=== PATIENT | female | born 1990 | race Caucasian/White ===

== ENCOUNTER → 2016-08-18 | Outpatient (CLI) | payer OTHER, BC | LOC: LAB 08:56 | PROVIDERS: ATTEND Obstetrics & Gynecology | DX: O09.899 Supervision of other high risk pregnancies, unspecified trimester (principal) | CPT/HCPCS: 36415; 82951; 82952; 82962 ==

== ENCOUNTER → 2017-08-04 | Outpatient (CLI) | payer BC, OTHER | LOC: LAB 12:12 | PROVIDERS: ATTEND Nurse Practitioner Family | DX: Z34.90 Encounter for supervision of normal pregnancy, unspecified, unspecified trimester (principal) ==

== ENCOUNTER → 2018-02-23 | Outpatient (CLI) | payer OTHER | LOC: LAB 08:51 | PROVIDERS: ATTEND Obstetrics & Gynecology | DX: N91.2 Amenorrhea, unspecified (principal) | CPT/HCPCS: 36415; 84702 ==

== ENCOUNTER 2018-03-31 02:47 | Observation (INO) | payer OTHER ==
[~2018-03-31] VITALS: Ht 170.2 cm; Wt 90.3 kg
[2018-03-31] MEDS ORDERED: NS IV 1000 ML 1,000 ML IV SCH ×2 (02:59→03:10)
[2018-03-31] MEDS ORDERED: FAMOTIDINE 20 MG (PEPCID) TABLET PO STA (02:59)
[2018-03-31] MEDS ORDERED: ONDANSETRON 4 MG/2 ML (SDV) Z0FRAN IVP ONE (03:00)
[2018-03-31] MEDS ORDERED: ACETAMINOPHEN 500 MG TAB (TYLENOL) PO ONE (03:00)
[2018-03-31] MEDS ORDERED: LIDOCAINE 2% VISCOUS 15 ML UDC PO ONE (03:00)
[2018-03-31] MEDS ORDERED: ANTACID SUSP 30 ML UDC (MYLANTA) PO ONE (03:00)
--- NOTE | 2018-03-31 03:07 | ED Chest Pain ---
General Stated Complaint: CP.SOB Source: patient, spouse Exam Limitations: no limitations History of Present Illness Date Seen by Provider: Mar 31, 2018 Time Seen by Provider: 02:52 Initial Comments History presents to ER by private conveyance with her and chief complaint about half an hour ago she woke up with some chest pain shortness of breath the center of her chest that did not radiate felt like she was taking in deep cold breaths. She is having some nausea and vomiting after the pain started up. She has had a cold lately with some cough and chills but no fevers she is aware of. She had a last menstrual. Of January 14, 2018 putting her at 10 weeks and 5 days. She is on aspirin, progesterone and vitamins with folate due to a history of previous miscarriage. She is followed by Dr. Dubon. She had high blood pressure but no hyperglycemia with her last pregnancies. She' s had no diarrhea or dysuria. She has no personal history of heart disease but she did have asthma as a child exercise induced. No other significant medical history or surgical history. She does not smoke drink or use recreational drugs. She denies a history of acid reflux or anxiety. The patient took an albuterol nebulizer before coming in and all he did was make her feel like her heart was racing. She denies any wheezing. Allergies and Home Medications Allergies Coded Allergies: No Known Drug Allergies (Unverified , 03/31/18) Patient Home Medication List Home Medication List Reviewed: Yes Review of Systems Review of Systems Constitutional: No chills, No diaphoresis EENTM: No Blurred Vision, No Double Vision Respiratory: Denies Cough, Denies Shortness of Air Cardiovascular: See HPI, Chest Pain; Denies Edema Gastrointestinal: Denies Abdomen Distended, Denies Abdominal Pain, Denies Constipated, Denies Diarrhea; Nausea; Denies Poor Fluid Intake; Vomiting Genitourinary: Denies Burning, Denies Discharge, Denies Drainage Musculoskeletal: No back pain, No joint pain Skin: No pruritus, No rash Psychiatric/Neurological: Denies Headache, Denies Numbness, Denies Paresthesia Past Hymazzt-Npmist-Frgczx Hx Patient Social History Alcohol Use: Denies Use Recreational Drug Use: No Smoking Status: Never a Smoker Recent Foreign Travel: No Contact w/Someone Who Travel: No Physical Exam Vital Signs Vital Signs - First Documented 03/31/18 02:54 Temp 99.6 Pulse 148 Resp 22 B/P (MAP) 136/92 (107) Capillary Refill : Height, Weight, BMI Height: '" Weight: lbs. oz. kg; BMI Method: General Appearance: WD/WN (gravid), Anxious HEENT: PERRL/EOMI, Pharynx Normal, Moist Mucous Membranes Respiratory: Chest Non Tender, Lungs Clear, Normal Breath Sounds, No Accessory Muscle Use, No Respiratory Distress Cardiovascular: Regular Rate, Rhythm, No Edema, Normal Peripheral Pulses Gastrointestinal: Normal Bowel Sounds, Non Tender, Soft Extremity: Normal Capillary Refill, Normal Inspection, Normal Range of Motion, Non Tender, No Calf Tenderness, No Pedal Edema Neurologic/Psychiatric: Alert, Oriented x3, No Motor/Sensory Deficits Skin: Normal Color, Warm/Dry Focused Exam Lactate Level 03/31/18 03:04: Lactic Acid Level 2.28*H Lactic Acid Level Laboratory Tests Test 03/31/18 03:04 Lactic Acid Level 2.28 MMOL/L (0.50-2.00) *H Progress/Results/Core Measures Results/Orders Lab Results Laboratory Tests Test 03/31/18 03:04 03/31/18 03:20 03/31/18 04:15 Range/Units White Blood Count 14.3 H 4.3-11.0 10^3/uL Red Blood Count 4.30 L 4.35-5.85 10^6/uL Hemoglobin 13.4 11.5-16.0 G/DL Hematocrit 38 35-52 % Mean Corpuscular Volume 89 80-99 FL Mean Corpuscular Hemoglobin 31 25-34 PG Mean Corpuscular Hemoglobin Concent 35 32-36 G/DL Red Cell Distribution Width 12.9 10.0-14.5 % Platelet Count 161 130-400 10^3/uL Mean Platelet Volume 10.6 H 7.4-10.4 FL Neutrophils (%) (Auto) 94 H 42-75 % Lymphocytes (%) (Auto) 3 L 12-44 % Monocytes (%) (Auto) 4 0-12 % Eosinophils (%) (Auto) 0 0-10 % Basophils (%) (Auto) 0 0-10 % Neutrophils # (Auto) 13.4 H 1.8-7.8 X 10^3 Lymphocytes # (Auto) 0.4 L 1.0-4.0 X 10^3 Monocytes # (Auto) 0.5 0.0-1.0 X 10^3 Eosinophils # (Auto) 0.0 0.0-0.3 10^3/uL Basophils # (Auto) 0.0 0.0-0.1 10^3/uL Neutrophils % (Manual) 72 % Lymphocytes % (Manual) 4 % Monocytes % (Manual) 2 % Eosinophils % (Manual) 4 % Basophils % (Manual) 1 % Band Neutrophils 17 % Blood Morphology Comment NORMAL Prothrombin Time 13.0 12.2-14.7 SEC INR Comment 1.0 0.8-1.4 Activated Partial Thromboplast Time 25 24-35 SEC D-Dimer 2.81 H 0.00-0.49 UG/ML Sodium Level 133 L 135-145 MMOL/L Potassium Level 3.7 3.6-5.0 MMOL/L Chloride Level 102 98-107 MMOL/L Carbon Dioxide Level 19 L 21-32 MMOL/L Anion Gap 12 5-14 MMOL/L Blood Urea Nitrogen 9 7-18 MG/DL Creatinine 0.72 0.60-1.30 MG/DL Estimat Glomerular Filtration Rate > 60 BUN/Creatinine Ratio 13 Glucose Level 110 H 70-105 MG/DL Lactic Acid Level 2.28 *H 0.50-2.00 MMOL/L Calcium Level 9.1 8.5-10.1 MG/DL Corrected Calcium 9.3 8.5-10.1 MG/DL Magnesium Level 1.6 L 1.8-2.4 MG/DL Total Bilirubin 0.7 0.1-1.0 MG/DL Aspartate Amino Transf (AST/SGOT) 25 5-34 U/L Alanine Aminotransferase (ALT/SGPT) 18 0-55 U/L Alkaline Phosphatase 74 40-136 U/L Troponin I < 0.028 <0.028 NG/ML C-Reactive Protein High Sensitivity 1.40 H 0.00-0.50 MG/DL B-Type Natriuretic Peptide 28.0 <100.0 PG/ML Total Protein 7.3 6.4-8.2 GM/DL Albumin 3.8 3.2-4.5 GM/DL Lipase 43 8-78 U/L Urine Color YELLOW Urine Clarity CLEAR Urine pH 7 5-9 Urine Specific [place] 1.010 L 1.016-1.022 Urine Protein NEGATIVE NEGATIVE Urine Glucose (UA) NEGATIVE NEGATIVE Urine Ketones 1+ H NEGATIVE Urine Nitrite NEGATIVE NEGATIVE Urine Bilirubin NEGATIVE NEGATIVE Urine Urobilinogen NORMAL NORMAL MG/DL Urine Leukocyte Esterase 1+ H NEGATIVE Urine RBC (Auto) NEGATIVE NEGATIVE Urine RBC NONE /HPF Urine WBC RARE /HPF Urine Squamous Epithelial Cells 2-5 /HPF Urine Crystals NONE /LPF Urine Bacteria TRACE /HPF Urine Casts NONE /LPF Urine Mucus NEGATIVE /LPF Urine Culture Indicated CULTURE PENDING Urine Opiates Screen NEGATIVE NEGATIVE Urine Oxycodone Screen NEGATIVE NEGATIVE Urine Methadone Screen NEGATIVE NEGATIVE Urine Propoxyphene Screen NEGATIVE NEGATIVE Urine Barbiturates Screen NEGATIVE NEGATIVE Ur Tricyclic Antidepressants Screen NEGATIVE NEGATIVE Urine Phencyclidine Screen NEGATIVE NEGATIVE Urine Amphetamines Screen NEGATIVE NEGATIVE Urine Methamphetamines Screen NEGATIVE NEGATIVE Urine Benzodiazepines Screen NEGATIVE NEGATIVE Urine Cocaine Screen NEGATIVE NEGATIVE Urine Cannabinoids Screen NEGATIVE NEGATIVE Erythrocyte Sedimentation Rate 12 0-20 MM/HR Micro Results Microbiology 03/31/18 Influenza Types A,B Antigen (ELMER) - Final, Complete My Orders Orders - SIRI CASON Troponin I (03/31/18 02:59) Chest 1 View, Ap/Pa Only (03/31/18 02:59) Ekg Tracing (03/31/18 02:59) Saline Lock/Iv-Start (03/31/18 02:59) Monitor-Rhythm Ecg Trace Only (03/31/18 02:59) Cbc With Automated Diff (03/31/18 02:59) Comprehensive Metabolic Panel (03/31/18 02:59) Fibrin Degradation Products (03/31/18 02:59) Magnesium (03/31/18 02:59) Influenza A And B Antigens (03/31/18 02:59) Saline Lock/Iv-Start (03/31/18 02:59) Ns Iv 1000 Ml (Sodium Chloride 0.9%) (03/31/18 02:59) Acetaminophen Tablet (Tylenol Tablet) (03/31/18 03:00) Ondansetron Injection (Zofran Injectio (03/31/18 03:00) Lidocaine 2% Viscous 15 Ml (Xylocaine Vi (03/31/18 03:00) Famotidine Tablet (Pepcid Tablet) (03/31/18 02:59) Antacid Suspension (Mylanta Suspension (03/31/18 03:00) Protime With Inr (03/31/18 03:10) Partial Thromboplastin Time (03/31/18 03:10) Blood Culture (03/31/18 03:10) Urinalysis (03/31/18 03:10) Urine Culture (03/31/18 03:10) Saline Lock/Iv-Start (03/31/18 03:10) Vital Signs Adult Sepsis Patie Q15M (03/31/18 03:10) O2 (03/31/18 03:10) Remove Rings In Anticipation O (03/31/18 03:10) Lactic Acid Analyzer (03/31/18 03:10) Ns Iv 1000 Ml (Sodium Chloride 0.9%) (03/31/18 03:10) Cefepime Injection (Maxipime Injection) (03/31/18 03:15) Manual Differential (03/31/18 03:04) Lipase (03/31/18 03:18) Drug Screen Stat (Urine) (03/31/18 03:23) Magnesium 1 Gm/100 Ml Ivpb (Magnesium Justin (03/31/18 03:45) BNP (03/31/18 03:43) Hs C Reactive Protein (03/31/18 03:59) Erythrocyte Sedimentation Rate (03/31/18 03:59) Medications Given in ED Current Medications Medications Dose Ordered Sig/Gus Route Start Time Stop Time Status Last Admin Dose Admin Acetaminophen 1,000 mg ONCE ONCE PO 03/31/18 03:00 03/31/18 03:02 DC 03/31/18 03:40 1,000 MG Al Hydrox/Mg Hydrox/Simethicone 30 ml ONCE ONCE PO 03/31/18 03:00 03/31/18 03:02 DC 03/31/18 03:50 30 ML Cefepime HCl 1000 mg/Sodium Chloride 50 ml @ 100 mls/hr ONCE ONCE IV 03/31/18 03:15 03/31/18 03:44 DC 03/31/18 03:41 100 MLS/HR Lidocaine HCl 15 ml ONCE ONCE PO 03/31/18 03:00 03/31/18 03:02 DC 03/31/18 03:50 15 ML Magnesium Sulfate/ Dextrose 100 ml @ 100 mls/hr ONCE ONCE IV 03/31/18 03:45 03/31/18 04:44 DC 03/31/18 04:25 100 MLS/HR Ondansetron HCl 4 mg ONCE ONCE IVP 03/31/18 03:00 03/31/18 03:02 DC 03/31/18 03:12 4 MG Vital Signs/I&O 03/31/18 02:54 Temp 99.6 Pulse 148 Resp 22 B/P (MAP) 136/92 (107) Progress Progress Note #1: Time: 03:08 Progress Note Patient appears very anxious with tachycardia and tachypnea. We'll get a set of blood cultures, lactate, urinalysis as well as urine drug screen. We'll get a d- dimer which will most likely be positive due to the . EKG, troponin. We 'll give her some aspirin and a GI cocktail as well as Tylenol. Part of her sinus tachycardia could be from her recent albuterol nebulizer treatment. Plan to give her 2 L which would be more than 20 mL/kg since she is tachycardic with a soft blood pressure 110 systolic. Bronchitis, pneumonia, myocarditis/pericarditis, chest wall pain from coughing, -related heart failure, much less likely coronary disease or pulmonary embolism, gastritis/esophagitis, pancreatitis. Well score for PE is 1. 5 points. Low risk group: 1.3% chance of PE in an ED population. Another study assigned scores = 4 as PE Unlikely and had a 3% incidence of PE. Wells criteria is of dubious value and . Unable to rule out by Perk criteria. We'll obtain a d-dimer first. Progress Note #2: Time: 04:46 Progress Note Chest carr nontender which would make costochondritis much less likely. Tylenol and GI cocktail did nothing for her pain which is still about a 4-5 out of 10. It's most likely between pericarditis or less likely a pulmonary embolism. At this point she is not showing any evidence of cor pulmonale or acute decompensation. Plan is to get a VQ scan since the chest x-ray is unrevealing. 90 mg Lovenox subcutaneous every 12. Initial ECG Impression Date: Mar 31, 2018 Initial ECG Impression Time: 02:58 Initial ECG Rate: 138 Initial ECG Rhythm: S.Tach Initial ECG Intervals: Normal Initial ECG Impression: Normal, Nonspecific Changes Initial ECG Comparisson: No Previous ECG Available Comment Sinus tachycardia without ST changes. Diagnostic Imaging Diagonstic Imaging: Xray Plain Films/CT/US/NM/MRI: chest (1v) Comments Mild perihilar prominence but no infiltrates or other acute cardiopulmonary processes noted. Reviewed: Reviewed by Me Consults #1: Consulting Physician: NONI REDDING DO Consults Notes Discussed case lab imaging findings and he agrees with possible pericarditis and bronchitis versus pulmonary embolism. He is okay with Lovenox and VQ scan in the morning. He would met to medicine and be willing to consult if necessary. Consults #2: Consulting Physician: RHINA ORDONEZ DO Consults Notes Discussed case lab imaging findings and differential diagnosis. Since the patient's chest wall was not tender to palpation costochondritis is less likely. He agrees with Lovenox, admitting to medicine and having Dr. REDDING consult. Departure Communication (Admissions) Time/Spoke to Admitting Phy: 04:35 Discussed case lab imaging findings and she agrees Lovenox and VQ scan. She would like cardiology consult. Time/Spoke to Consulting Phy: 04:50 Discussed case lab imaging findings EKG with Dr. Kelly and he agrees to consult. Discussed case with Dr. REDDING at 0415 and he agrees to consult if necessary. Impression Primary Impression: Pulmonary embolism Qualified Codes: I26.99 - Other pulmonary embolism without acute cor pulmonale Additional Impressions: Pericarditis Qualified Codes: I30.9 - Acute pericarditis, unspecified Chest pain Qualified Codes: R07.2 - Precordial pain Disposition: 09 ADMITTED INPATIENT Condition: Stable Admissions Decision to Admit Reason: Admit from ER (General) Decision to Admit/Date: Mar 31, 2018 Time/Decision to Admit Time: 04:15 Departure-Patient Inst. Referrals: CHARITY KRUGER MD (PCP/Family) Primary Care Physician SIRI CASON Mar 31, 2018 03:07
[2018-03-31 03:14] LABS: BASOPHILS % (AUTO) 0 % (0-10); EOSINOPHILS % (AUTO) 0 % (0-10); HEMATOCRIT 38 % (35-52); HEMOGLOBIN 13.4 G/DL (11.5-16.0); LYMPHOCYTES # (AUTO) 0.4 X 10^3 (1.0-4.0); LYMPHOCYTES % (AUTO) 3 % (12-44); MEAN CORPUSCULAR HEMOGLOBIN 31 PG (25-34); MEAN CORPUSCULAR HGB CONC 35 G/DL (32-36); MEAN CORPUSCULAR VOLUME 89 FL (80-99); MEAN PLATELET VOLUME 10.6 FL (7.4-10.4); MONOCYTES # (AUTO) 0.5 X 10^3 (0.0-1.0); MONOCYTES % (AUTO) 4 % (0-12); NEUTROPHILS # (AUTO) 13.4 X 10^3 (1.8-7.8); NEUTROPHILS % (AUTO) 94 % (42-75); PLATELET COUNT 161 10^3/uL (130-400); RED CELL DISTRIBUTION WIDTH 12.9 % (10.0-14.5); WHITE BLOOD COUNT 14.3 10^3/uL (4.3-11.0)
[2018-03-31] MEDS ORDERED: CEFEPIME INJECTION 1,000 MG in NS (IVPB) 50 ML IV ONE (03:15)
[2018-03-31 03:32] LABS: BILIRUBIN,URINE NEGATIVE (NEGATIVE); CLARITY,URINE CLEAR; COLOR,URINE YELLOW; GLUCOSE, URINE (UA) NEGATIVE (NEGATIVE); KETONES,URINE 1+ (NEGATIVE); LEUKOCYTE ESTERASE ,URINE 1+ (NEGATIVE); NITRITE,URINE NEGATIVE (NEGATIVE); PH,URINE 7 (5-9); PROTEIN,URINE NEGATIVE (NEGATIVE); UROBILINOGEN,URINE NORMAL (NORMAL)
[2018-03-31 03:34] LABS: ALANINE AMINOTRANSFERASE 18 U/L (0-55); ALBUMIN 3.8 GM/DL (3.2-4.5); ALKALINE PHOSPHATASE 74 U/L (40-136); BILIRUBIN,TOTAL 0.7 MG/DL (0.1-1.0); BUN/CREATININE RATIO 13; CALCIUM 9.1 MG/DL (8.5-10.1); CARBON DIOXIDE 19 MMOL/L (21-32); CHLORIDE 102 MMOL/L (98-107); CREATININE SERUM 0.72 MG/DL (0.60-1.30); GFR ESTIMATED > 60; GLUCOSE 110 MG/DL (70-105); MAGNESIUM 1.6 MG/DL (1.8-2.4); POTASSIUM 3.7 MMOL/L (3.6-5.0); SODIUM 133 MMOL/L (135-145); TOTAL PROTEIN 7.3 GM/DL (6.4-8.2)
[2018-03-31 03:45] LABS: BACTERIA,URINE TRACE /HPF; WBC,URINE RARE /HPF
[2018-03-31] MEDS ORDERED: MAGNESIUM 1 GM/100 ML IVPB 100 ML IV ONE (03:45)
[2018-03-31 03:46] LABS: AMPHETAMINE SCREEN, URINE NEGATIVE (NEGATIVE); BARBITURATE SCREEN URINE NEGATIVE (NEGATIVE); BENZODIAZEPINES SCREEN URINE NEGATIVE (NEGATIVE); CANNABINOID SCREEN, URINE NEGATIVE (NEGATIVE); COCAINE SCREEN URINE NEGATIVE (NEGATIVE); METHADONE STAT NEGATIVE (NEGATIVE); METHAMPHETAMINE SCREEN URINE S NEGATIVE (NEGATIVE); OPIATE SCREEN URINE NEGATIVE (NEGATIVE); OXYCODONE STAT NEGATIVE (NEGATIVE); PROPOXYPHENE STAT NEGATIVE (NEGATIVE); TRICYCLIC ANTIDEPRESSANTS SCRE NEGATIVE (NEGATIVE)
[2018-03-31 04:10] LABS: BAND NEUTROPHILS 17 %; BASOPHILS % (MANUAL) 1 %; EOSINOPHILS % (MANUAL) 4 %; LYMPHOCYTES % (MANUAL) 4 %; MONOCYTES % (MANUAL) 2 %; NEUTROPHILS % (MANUAL) 72 %; RBC MORPH NORMAL
[2018-03-31] MEDS ORDERED: ENOXAPARIN 100 MG/1 ML (LOVENOX) SYR SC ONE (05:00)
--- OUTSIDE RECORDS SUMMARY | 2018-03-31 05:17 | XMS REPORT ---
Author Author KEAGAN ROGERS Organization [facility] Address [address] [place] [address] Care Team Providers Care Cherry Sorter Name Role Phone KEAGAN ROGERS Unavailable PROBLEMS Type Condition ICD9-CM Code BPL90-BO Code Onset Dates Condition Status SNOMED Code Problem Procreative counseling and advice using natural family planning V26.41 Active 024241253 Problem Urinary frequency 788.41 Active 675976025 Problem examination or test, positive result V72.42 Active 856949783 Problem Screening for malignant neoplasm of the cervix V76.2 Active 104071651 Problem Polycystic ovaries 256.4 Active 94876042 Problem Obesity, unspecified 278.00 Active 049238241 Problem 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 372519286 Problem Hirsutism 704.1 Active 928668222 Problem Absence of menstruation 626.0 Active 01281512 Problem Scanty or infrequent menstruation 626.1 Active 124610449 ALLERGIES Substance Reaction Event Type Date Status Hydrocodone-Acetaminophen Unknown Drug Allergy Feb, Active SOCIAL HISTORY No smoking Hx information available PLAN OF CARE Activity Details Follow Up prn Reason: VITAL SIGNS Height 67 in 2016-03-05 Weight 195.8 lbs 2016-03-05 Temperature 97.4 degrees Fahrenheit 2016-03-05 Heart Rate 88 bpm 2016-03-05 Respiratory Rate 18 2016-03-05 BMI 30.66 kg/m2 2016-03-05 Blood pressure systolic 122 mmHg 2016-03-05 Blood pressure diastolic 78 mmHg 2016-03-05 MEDICATIONS Medication Instructions Dosage Frequency Start Date End Date Duration Status Prometrium 100 MG Orally Once a day 2 capsules at bedtime 24h Active 28-0.8 MG Active Folic Acid 1 mg Aug, Active metformin 1,000 mg take 1 tablet (1,000 mg) by oral route 2 times per day with meals Nov, Active ASA 1 tab Active RESULTS Name Result Date Reference Range STREP A (IN HOUSE) 2016-03-05 STREP A negative Control + Lot # [id number] Exp date september 14 PROCEDURES Procedure Date Ordered Related Diagnosis Body Site STREP A ASSAY W/OPTIC Mar 05, 2016 Office Visit, Est Pt., Level 3 Mar 05, 2016 IMMUNIZATIONS No Known Immunizations
--- OUTSIDE RECORDS SUMMARY | 2018-03-31 05:17 | XMS REPORT | Continuity of Care Document ---
Author Author [facility] Address Unknown Phone Unavailable Allergies There is no data. Medications There is no data. Problems Date Dx Coded Attending Type Code Diagnosis Diagnosed By 04/06/2012 EASTON BREAUX DO 278.00 OBESITY 04/06/2012 EASTON BREAUX DO 626.1 OLIGOMENORRHEA 04/06/2012 EASTON BREAUX DO 704.1 HIRSUTISM 04/06/2012 278.00 OBESITY 04/06/2012 626.1 OLIGOMENORRHEA 04/06/2012 704.1 HIRSUTISM 04/06/2012 278.00 OBESITY 04/06/2012 626.1 OLIGOMENORRHEA 04/06/2012 704.1 HIRSUTISM 04/06/2012 EASTON BREAUX DO 278.00 OBESITY 04/06/2012 EASTON BREAUX DO 626.1 OLIGOMENORRHEA 04/06/2012 EASTON BREAUX DO 704.1 HIRSUTISM 04/06/2012 FANI CESAR, RENAE A 278.00 OBESITY 04/06/2012 FANI INCIDENT RESPONSE SPECIALIST, RENAE A 626.1 OLIGOMENORRHEA 04/06/2012 FNAI INCIDENT RESPONSE SPECIALIST, RENAE A 704.1 HIRSUTISM 04/06/2012 FANI INCIDENT RESPONSE SPECIALIST, RENAE A 278.00 OBESITY 04/06/2012 FANI INCIDENT RESPONSE SPECIALIST, RENAE A 626.1 OLIGOMENORRHEA 04/06/2012 FANI INCIDENT RESPONSE SPECIALIST, RENAE A 704.1 HIRSUTISM 04/06/2012 NORI PHAN MD 278.00 OBESITY 04/06/2012 NORI PHAN MD 626.1 OLIGOMENORRHEA 04/06/2012 NORI PHAN MD 704.1 HIRSUTISM 04/06/2012 NORI PHAN MD 278.00 OBESITY 04/06/2012 NORI PHAN MD 626.1 OLIGOMENORRHEA 04/06/2012 NORI PHAN MD 704.1 HIRSUTISM 04/06/2012 NORI PHAN MD 278.00 OBESITY 04/06/2012 NORI PHAN MD 626.1 OLIGOMENORRHEA 04/06/2012 NORI PHAN MD 704.1 HIRSUTISM 07/10/2012 788.41 URINARY FREQUENCY 07/10/2012 V76.2 CERVICAL CANCER SCREENING (PAP SMEAR) 07/10/2012 788.41 URINARY FREQUENCY 07/10/2012 V76.2 CERVICAL CANCER SCREENING (PAP SMEAR) 07/10/2012 EASTON BREAUX DO K 788.41 URINARY FREQUENCY 07/10/2012 EASTON BREAUX DO V76.2 CERVICAL CANCER SCREENING (PAP SMEAR) 07/10/2012 RENAE MHOR APRN A 788.41 URINARY FREQUENCY 07/10/2012 RENAE MOHR APRN A V76.2 CERVICAL CANCER SCREENING (PAP SMEAR) 07/10/2012 RENAE MOHR APRN A 788.41 URINARY FREQUENCY 07/10/2012 RENAE MOHR APRN A V76.2 CERVICAL CANCER SCREENING (PAP SMEAR) 07/10/2012 NORI PHAN MD 788.41 URINARY FREQUENCY 07/10/2012 NORI PHAN MD V76.2 CERVICAL CANCER SCREENING (PAP SMEAR) 07/10/2012 NORI PHAN MD 788.41 URINARY FREQUENCY 07/10/2012 NORI PHAN MD V76.2 CERVICAL CANCER SCREENING (PAP SMEAR) 07/10/2012 NORI PHAN MD 788.41 URINARY FREQUENCY 07/10/2012 NORI PHAN MD V76.2 CERVICAL CANCER SCREENING (PAP SMEAR) 08/15/2012 V72.42 TEST POSITIVE RESULT 08/15/2012 EASTON BREAUX DO V72.42 TEST POSITIVE RESULT 08/15/2012 RENAE MOHR APRN V72.42 TEST POSITIVE RESULT 08/15/2012 RENAE MOHR APRN V72.42 TEST POSITIVE RESULT 08/15/2012 NORI PHAN MD V72.42 TEST POSITIVE RESULT 08/15/2012 NORI PHAN MD V72.42 TEST POSITIVE RESULT 08/15/2012 NORI PHAN MD V72.42 TEST POSITIVE RESULT 12/13/2012 EASTON BREAUX DO 256.4 POLYCYSTIC OVARIES 12/13/2012 RENAE MOHR APRN A 256.4 POLYCYSTIC OVARIES 12/13/2012 RENAE MOHR APRN A 256.4 POLYCYSTIC OVARIES 12/13/2012 NORI PHAN MD 256.4 POLYCYSTIC OVARIES 12/13/2012 NORI PHAN MD 256.4 POLYCYSTIC OVARIES 12/13/2012 NORI PHAN MD 256.4 POLYCYSTIC OVARIES 04/03/2013 RENAE MOHR APRN A V26.41 FERTILITY COUNSELING 04/03/2013 RENAE MOHR APRN V26.41 FERTILITY COUNSELING 04/03/2013 NORI PHAN MD V26.41 FERTILITY COUNSELING 04/03/2013 NORI PHAN MD V26.41 FERTILITY COUNSELING 04/03/2013 NORI PHAN MD V26.41 FERTILITY COUNSELING 07/02/2013 RENAE MOHR APRN A 626.0 AMENORRHEA 07/02/2013 NORI PHAN MD 626.0 AMENORRHEA 07/02/2013 NORI PHAN MD 626.0 AMENORRHEA 07/02/2013 NORI PHAN MD 626.0 AMENORRHEA 09/20/2013 NORI PHAN MD 629.81 RECURRENT LOSS WITHOUT CURRENT 09/20/2013 NORI PHAN MD 629.81 RECURRENT LOSS WITHOUT CURRENT 09/20/2013 NORI PHAN MD 629.81 RECURRENT LOSS WITHOUT CURRENT Procedures Code [place] [address] PAP SMEAR 07/10/2012 Q0091 PAP SMEAR OBTAIN SMEAR 07/10/2012 82822 UA W/ CULTURE IF INDICATED 07/10/2012 50175 URINE TEST (IN- HOUSE) 08/15/2012 66417 ROUTINE VENIPUNCTURE 12/13/2012 64083 URINE TEST (IN- HOUSE) 12/13/2012 19604 TSH 12/13/2012 65028 ROUTINE VENIPUNCTURE 04/03/2013 11005 CBC 04/03/2013 9120644 GFR CALC (RESULT ONLY) 04/03/2013 51203 CMP 04/03/2013 26376 TEST, URINE (IN- HOUSE) 07/02/2013 46789 ROUTINE VENIPUNCTURE 09/20/2013 16423 TESTOSTERONE TOTAL-WOMEN & CHILDREN 09/20/2013 55372 CARDIOLIPIN ANTIBODY 09/20/2013 LUPUS LUPUS ANTICOAGULANT ANALYZER 09/20/2013 71642 ROUTINE VENIPUNCTURE 10/02/2013 41693 CARDIOLIPIN ANTIBODY 10/02/2013 Results There is no data. Encounters ACCT No. Visit Date/Time Discharge Status Pt. Type Provider Facility Loc./Unit Complaint [id number] 10/19/2013 11:27:00 10/19/2013 23:59:59 CLS Outpatient NORI PHAN MD [id number] 10/02/2013 10:46:00 10/02/2013 23:59:59 CLS Outpatient NORI PHAN MD [id number] 09/20/2013 08:58:00 09/20/2013 23:59:59 CLS Outpatient NORI PHAN MD [id number] 07/02/2013 15:29:00 07/02/2013 23:59:59 CLS Outpatient RENAE MOHR APRN [id number] 04/03/2013 09:49:00 04/03/2013 23:59:59 CLS Outpatient RENAE MOHR APRN [id number] 12/13/2012 10:35:00 12/13/2012 23:59:59 CLS Outpatient EASTON BREAUX DO [id number] 04/06/2012 14:24:00 04/06/2012 23:59:59 CLS Outpatient EASTON BREAUX DO [id number] 08/15/2012 11:13:00 Document Registration [id number] 07/10/2012 09:59:00 Document Registration
[2018-03-31 05:40] VITALS: BP 111/64
--- NOTE | 2018-03-31 05:40 | NUR ---
YASEMIN HENDERSON admitted to room 406-1, with an admitting diagnosis of chest pain, pericarditis V.S. P.E., on 03/31/18 from ED via WC, accompanied by ED staff member.YASEMIN HENDERSON introduced to surroundings, call light, bed controls, phone, TV, temperature control, lights, meal times, smoking policy, visitor policy, side rail policy, bathrooms and showers. Patient Rights given to patient in the handbook. YASEMIN HENDERSON verbalizes understanding that [facility] is not responsible for the loss or damage to any personal effects or valuables that are kept in the patients posession during their hospitalization. Pt plan of care discussed with patient, no questions or concerns at this time.
--- NOTE | 2018-03-31 06:10 | Diagnostic Imaging Report ---
INDICATION: Shortness of air, chest pain waking patient up.. TECHNIQUE: Single view chest 3:34 AM. CORRELATION STUDY: None FINDINGS: The heart size, mediastinal configuration and pulmonary vascularity are within normal limits. The lungs are clear with no consolidating infiltrate. There is no significant effusion or pneumothorax. IMPRESSION: 1. Negative portable chest. Dictated by: Dictated on workstation # [id number]
[2018-03-31] MEDS ORDERED: ONDANSETRON 4 MG/2 ML (SDV) Z0FRAN IV PRN (06:15)
[2018-03-31] MEDS ORDERED: BUTORPHANOL INJ 2 MG/ML (STADOL) VIAL IV PRN (06:15)
[2018-03-31] MEDS ORDERED: PROMETHAZINE 25 MG (PHENERGAN) TAB PO PRN (06:15)
[2018-03-31] MEDS ORDERED: ACETAMINOPHEN 500 MG TAB (TYLENOL) PO PRN (06:15)
[2018-03-31] MEDS: NS IV 1000 ML 1,000 ML IV SCH ×2 (06:59→15:47)
[2018-03-31 07:34] VITALS: BP 106/61
[2018-03-31] MEDS ORDERED: FOLI1TAB24 PO (08:34)
[2018-03-31] MEDS ORDERED: PNV11TAB5 PO (08:34)
[2018-03-31] MEDS ORDERED: PROG200C6 PO (08:34)
[2018-03-31] MEDS ORDERED: ASPI-983 PO (08:34)
--- NOTE | 2018-03-31 08:36 | NUR ---
SPOKE WITH THE PATIENT ABOUT HER MEDICATIONS. SHE LISTED WHAT SHE IS TAKING AND I COMPARED IT WITH THE EXT MED HX. SHE FILLED AMOXICILLIN 875MG #20 03-30-18 HOWEVER SHE STATES SHE DID NOT TAKE ANY OF IT. SHE TAKES ASPIRIN 81MG HS AND 2 GUMMIES HS OTC. SHE FILLED BUSPIRONE, LEXAPRO, AND PROPRANOLOL IN NOV AND DEC HOWEVER SHE STATES SHE IS NO LONGER TAKING THESE.
--- NOTE | 2018-03-31 09:25 | Consultation-Cardiology ---
HPI-Cardiology Cardiology Consultation: Date of Consultation 03/31/18 Time Seen by a Provider: 09:00 Date of Admission 03-31-18 Attending Physician Nichole Cardoza DO Admitting Physician Mckenzie Cardenas MD Consulting Physician Danni Kelly MD HPI: Chief Complaint: Sudden onset dyspnea with associated CP Ms. Marquez is a 28 year old female admitted to 406 from the ED with sudden onset of mid-sternal chest pain which radiated up her chest. She also reports a sudden onset of shortness of breath. She reports episode of emesis as well. She states she took an albuterol breathing treatment at home (which was her child's) to help with the SOB since she has been suffering with an URI all week. She reports the chest pain is worse with deep breathing. She is currently reporting mild chest discomfort. She reports the SOB, "feeling she couldn't catch her breath" persisted so she came to the ED and was found to have fast HR as well. She reports she was very anxious when she came to the ED. She reports she was not having a feeling of palpitations at that time. She denies any LE swelling. She reports she is 11 weeks . She states this is her 6 , but she has has 4 previous miscarriages. She states she was place on a baby ASA d/t miscarriages. She denies any syncope or near syncope. Her mother is at the bedside. She reports a temp of 99 degrees at home. No chills. She reports 3 of the children living at home have had strep throat. Review of Systems-Cardiology Review of Systems Constitutional: No chills; fever, malaise Eyes: No vision change Ears/Nose/Throat: No epistaxis, No recent hearing loss Respiratory: As described under HPI Cardiovascular: As described under HPI Gastrointestinal: No constipation, No diarrhea; nausea, vomiting Genitourinary: No dysuria, No hematuria Expected Date of Delivery: Oct 22, 2018 Musculoskeletal: no symptoms reported Skin: No ulcerations Psychiatric/Neurological: No seizure, No focal weakness, No syncope Hematologic: As described under HPI FZW-Vadzbt-Edcfzf Hx Patient Social History Alcohol Use: Denies Use Recreational Drug Use: No Smoking Status: Never a Smoker Recent Foreign Travel: No Recent Infectious Disease Expo: No Hospitalization with Isolation: Denies Immunizations Up To Date Date of Influenza Vaccine: Dec 13, 2017 Past Medical History PMH As described under Assessment. Family Medical History Family Medical History: She reports her father has had a TIA in the past. Allergies and Home Medications Allergies Coded Allergies: No Known Drug Allergies (Unverified , 03/31/18) Home Medications Aspirin 81 Mg Tablet.dr, 81 MG PO HS, (Reported) Butorphanol Tartrate 25 Mg Goodman, 25 MG NS TID Prescribed by: NICHOLE CARDOZA on 03/31/18 1124 Folic Acid 1 Mg Tablet, 3 MG PO HS, (Reported) TAKES 3 (1MG) TABLETS Hzw700/FA/Omega3/Dha/Fish Oil 1 Each Tab.chew, 2 TAB.CHEW PO HS, (Reported) Progesterone,Micronized 200 Mg Capsule, 200 MG PO HS, (Reported) Patient Home Medication List Home Medication List Reviewed: Yes Physical Exam-Cardiology Physical Exam Vital Signs/I&O Capillary Refill : Less Than 3 Seconds Constitutional: AAO x 3, well-developed, well-nourished HEENT: PERRL, hearing is well preserved, oral hygience is good Neck: No carotid bruit; carotid pulses are 2 + bilaterally Respiratory: No accessory muscle use, No respiratory distress; chest expansion is symmetric, chest is bilaterally symmetric, lungs clear to auscultation Cardiovascular: regular rate-rhythm; No JVD; S1 and S2 Gastrointestinal: No tender; soft, round, audible bowel sounds Extremities: no lower extremity edema bilateral Neurologic/Psychiatric: grossly intact, power is 5/5 both on sides Skin: No rash Data Review Labs Microbiology 03/31/18 Blood Culture - Preliminary, Resulted No growth 03/31/18 Influenza Types A,B Antigen (ELMER) - Final, Complete 03/31/18 Urine Culture - Final, Complete NO GROWTH ECG Impression ECG Initial ECG Rhythm: S.Tach A/P-Cardiology Assessment/Admission Diagnosis Mid-sternal CP with sudden onset of dyspnea and nausea Sinus tachycardia of undetermined etiology URI H/O palpitations in the past for which she states she has worn a Holter Monitor in the past which "did not show anything" H/O PCOS - progesterone tx 11 weeks H/O 4 miscarriages - states she has been on low dose ASA tx Reports several family member have had strep throat in the home Discussion and Recomendations Chest pain which is worse with inspiration of undetermined etiology Sudden onset of dyspnea of undetermined etiology - awaiting VQ lung scan to r/o probability of PE (11 weeks ) Echocardiogram today to eval structure and function Check TSH Further recs will be based on her hospital course Dr. Gilmore has been consulted We would like to thank medical services for this consult Clinical Quality Measures DVT/VTE Risk/Contraindication: Risk Factor Score Per Nursin RFS Level Per Nursing on Admit: 3=High HUA JEFFERSON Mar 31, 2018 09:25
--- NOTE | 2018-03-31 09:38 | Consultation ---
History of Present Illness History of Present Illness Patient Consulted On(cosme/time) 03/31/18 09:33 Date Seen by Provider: Mar 31, 2018 Time Seen by Provider: 09:15 Reason for Visit: Acute onset CP, SOB History of Present Illness This 28-year-old female was admitted last night after presenting to the emergency department with shortness of breath and acute onset chest pain. 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 Upon presenting to the emergency department options saturations were in the low 90s, chest x-ray was negative, there is no acute imaging order at that point therefore the patient was started on anticoagulation therapy as a precaution, is awaiting a possible VQ scan however this might not be indicated due to the patient's resolution in symptoms and the possibility of underlying pericarditis. I was consulted due to the patient's 12 week . 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 Upon questioning she is unsure of all of the testing that was done, however, she is aware that blood clots can occur more easily and . This morning she feels much better and is not having any difficulties breathing. Allergies and Home Medications Allergies Coded Allergies: No Known Drug Allergies (Unverified , 03/31/18) Home Medications Aspirin 81 Mg Tablet.dr, 81 MG PO HS, (Reported) Folic Acid 1 Mg Tablet, 3 MG PO HS, (Reported) TAKES 3 (1MG) TABLETS [id number]/FA/Omega3/Dha/Fish Oil 1 Each Tab.chew, 2 TAB.CHEW PO HS, (Reported) Progesterone,Micronized 200 Mg Capsule, 200 MG PO HS, (Reported) Patient Home Medication List Home Medication List Reviewed: Yes Past Lbxuqgz-Unaxvm-Obkfzm Hx Patient Social History Alcohol Use: Denies Use Recreational Drug Use: No Smoking Status: Never a Smoker Recent Foreign Travel: No Contact w/Someone Who Travel: No Recent Infectious Disease Expo: No Recent Hopitalizations: No Immunizations Up To Date Date of Influenza Vaccine: Dec 13, 2017 Seasonal Allergies Seasonal Allergies: No Past Medical History Surgeries: Yes (WISDOM TEETH) Appendectomy, Orthopedic Respiratory: No Neurological: Yes Headaches /Migraines, Seizure Disorder Expected Date of Delivery: Oct 22, 2018 Last Menstrual Period: Jan 14, 2018 Genitourinary: No Gastrointestinal: No Musculoskeletal: No Endocrine: No HEENT: No Cancer: No Psychosocial: No Integumentary: No Blood Disorders: No Review of Systems-General Constitutional: no symptoms reported EENTM: see HPI Respiratory: see HPI Cardiovascular: see HPI Gastrointestinal: see HPI Genitourinary: see HPI : Yes Expected Date of Delivery: Oct 12, 2018 Musculoskeletal: see HPI Skin: see HPI Psychiatric/Neurological: See HPI All Other Systems Reviewed Negative Unless Noted: Yes Physical Exam-General Problems Physical Exam Vital Signs Vital Signs - First Documented 03/31/18 03/31/18 02:54 05:32 Temp 99.6 Pulse 148 Resp 22 B/P (MAP) 136/92 (107) Pulse Ox 100 Capillary Refill : Less Than 3 Seconds General Appearance: WD/WN, no apparent distress HEENT: PERRL/EOMI Neck: normal inspection Respiratory: no respiratory distress Cardiovascular: regular rate, rhythm Gastrointestinal: normal bowel sounds Extremities: normal capillary refill Neurologic/Psychiatric: oriented x 3 Skin: normal color Lymphatic: no adenopathy Comments heart tones obtained using external Doppler in the 160s Assessment/Plan Assessment/Plan Admission Diagnosis/Plan Diagnosis: 28-year-old at approximately 11-12 weeks Acute onset chest pain, shortness of breath Plan: Due to the patient's ongoing 81 mg aspirin daily that was recommended by her primary employment agency manager Dr. Gan, the likelihood of DVT or PE is slightly less, however I will follow recommendations of medicine from this point. From a obstetrical standpoint there is no further intervention needed I will be available if any further questions or questions about medications and their safety and should arise. Admission Status: Observation Reason for Inpatient Admission: Suspected pericarditis Clinical Quality Measures DVT/VTE Risk/Contraindication: Risk Factor Score Per Nursin RFS Level Per Nursing on Admit: 3=High NONI REDDING DO Mar 31, 2018 09:38
--- NOTE | 2018-03-31 10:45 | Short Stay Summary-Hospitalist ---
History of Present Illness HPI/Chief Complaint CC: Chest pain HPI: This is a 28-year-old white female clinic patient of Dr. Gan in [place] [employer] who has a past medical history of 6 1 and currently at 10 weeks who presented to the ER with severe chest pain and shortness of breath. She is found to be stable and workup was negative but in need of a VQ scan per Dr. REDDING. Cardiology has been consulted and echocardiogram has been ordered but patient has no prior history of cardiac issues. Patient is improved on Stadol and overall feels much better. Her mother and her are at the bedside. 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 She denied any smoking or alcohol use and had no cardiac issues during her last . She also has an adopted child. Source: patient Exam Limitations: no limitations Date Seen 03/31/18 Time Seen by a Provider: 10:00 Attending Physician Nichole Cardoza Katrina M MD Referring Physician RHINA GAN DO Date of Admission Mar 31, 2018 at 04:45 Home Medications & Allergies Home Medications Reviewed patient Home Medication Reconciliation performed by pharmacy medication reconciliations surgery technician and/or nursing. Patients Allergies have been reviewed. 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[employer]) Alcohol Use: Denies Use Recreational Drug Use: No Smoking Status: Never a Smoker Recent Foreign Travel: No Contact w/other who traveled: No Recent Hopitalizations: No Recent Infectious Disease Expo: No Immunizations Up To Date Date of Influenza Vaccine: Dec 13, 2017 Seasonal Allergies Seasonal Allergies: No Past Medical History Surgeries: Appendectomy, Orthopedic Neurological: Headaches /Migraines, Seizure Disorder Expected Date of Delivery: Oct 12, 2018 History of Blood Disorders: No Review of Systems Constitutional: see HPI, dizziness EENTM: no symptoms reported Respiratory: dyspnea on exertion Cardiovascular: chest pain Gastrointestinal: no symptoms reported Genitourinary: no symptoms reported Musculoskeletal: no symptoms reported Skin: no symptoms reported Psychiatric/Neurological: No Symptoms Reported All Other Systems Reviewed Negative Unless Noted: Yes Physical Exam Physical Exam Vital Signs Vital Signs - First Documented 03/31/18 03/31/18 02:54 05:32 Temp 99.6 Pulse 148 Resp 22 B/P (MAP) 136/92 (107) Pulse Ox 100 Capillary Refill : Less Than 3 Seconds Height, Weight, BMI Height: 5'7.00" Weight: 199lbs. 1.0oz. 90.720505nk; 31.2 BMI Method:Stated General Appearance: No Apparent Distress, WD/WN Eyes: Bilateral Eye Normal Inspection, Bilateral Eye PERRL HEENT: PERRL/EOMI, TMs Normal, Normal ENT Inspection, Pharynx Normal Neck: Full Range of Motion, Normal Inspection, Non Tender, Supple, Carotid Bruit Respiratory: Chest Non Tender, Lungs Clear, Normal Breath Sounds, No Accessory Muscle Use, No Respiratory Distress Cardiovascular: Regular Rate, Rhythm, No Edema, No Gallop, No JVD, No Murmur, Normal Peripheral Pulses, Extra Beats (S3) Gastrointestinal: Normal Bowel Sounds, No Organomegaly, No Pulsatile Mass, Non Tender, Soft Back: Normal Inspection, No CVA Tenderness, No Vertebral Tenderness Extremity: Normal Capillary Refill, Normal Inspection, Normal Range of Motion, Non Tender, No Calf Tenderness, No Pedal Edema Neurologic/Psychiatric: Alert, Oriented x3, No Motor/Sensory Deficits, Normal Mood/Affect Skin: Normal Color, Warm/Dry Lymphatic: No Adenopathy Results Results/Procedures Labs Laboratory Tests 03/31/18 03:04 Patient resulted labs reviewed. Short Stay Diagnosis Discharge Diagnosis-Short Stay Admission Diagnosis Chest pain Current at 10 weeks with [address] Gan [employer] Final Discharge Diagnosis Chest pain Current at 10 weeks with [address] Gan [employer] Conclusion Plan Plan: Check VQ scan Check echocardiogram Monitor closely Diagnosis/Problems Diagnosis/Problems (1) Chest pain Status: Acute Qualifiers: Qualified Codes: R07.2 - Precordial pain (2) Pericarditis Status: Acute Qualifiers: Qualified Codes: I30.9 - Acute pericarditis, unspecified (3) Leukocytosis Status: Acute Qualifiers: Qualified Codes: D72.823 - Leukemoid reaction (4) Elevated d-dimer Status: Acute Clinical Quality Measures DVT/VTE Risk/Contraindication: Risk Factor Score Per Nursin RFS Level Per Nursing on Admit: 3=High NICHOLE CARDOZA DO Mar 31, 2018 10:45
[2018-03-31] MEDS ORDERED: BTR10SP2 NS (11:24)
[2018-03-31 12:00] VITALS: BP 106/72
--- NOTE | 2018-03-31 14:58 | Consultation-Cardiology ---
HPI-Cardiology Cardiology Consultation: Date of Consultation 03/31/18 Time Seen by a Provider: 14:30 Date of Admission Attending Physician Nichole Cardoza DO Admitting Physician Mckenzie Cardenas MD Consulting Physician OCHOA QUINTANA MD, MA, FACP, FACC, FSCAI, CCDS Physician requesting Cardiology consult: Dr Cardoza HPI: Chief Complaint: CC: Chest discomfort and sudden shortness of breath HPI: Ms. Marquez is a 28 year old female admitted to [facility] from the ED with sudden onset of mid-sternal chest pain which radiated up her chest. She also reports a sudden onset of shortness of breath. She reports episode of emesis as well. She states she took an albuterol breathing treatment at home (which was her child's) to help with the SOB since she has been suffering with an URI all week. She reports the chest pain is worse with deep breathing. She is currently reporting mild chest discomfort. She reports the SOB, "feeling she couldn't catch her breath" persisted so she came to the ED and was found to have fast HR as well. She reports she was very anxious when she came to the ED. She reports she was not having a feeling of palpitations at that time. She denies any LE swelling. She reports she is 11 weeks . She states this is her 6 , but she has has 4 previous miscarriages. She states she was place on a baby ASA d/t miscarriages. She denies any syncope or near syncope. Her mother is at the bedside. She reports a temp of 99 degrees at home. No chills. She reports 3 of the children living at home have had strep throat. Review of Systems-Cardiology Review of Systems Constitutional: No chills; fever, malaise Eyes: No vision change Ears/Nose/Throat: No epistaxis, No recent hearing loss Respiratory: As described under HPI Cardiovascular: As described under HPI Gastrointestinal: No constipation, No diarrhea; nausea, vomiting Genitourinary: No dysuria, No hematuria : Yes Expected Date of Delivery: Oct 12, 2018 Musculoskeletal: no symptoms reported Skin: No ulcerations Psychiatric/Neurological: No seizure, No focal weakness, No syncope Hematologic: As described under HPI All Other Systems Reviewed Negative Unless Noted: Yes XQN-Iotiqd-Jftqqt Hx Patient Social History Marrital Status: Number of Children: 1 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 Family Medical History Family Medical History: She reports her father has had a TIA in the past. Allergies and Home Medications Allergies Coded Allergies: No Known Drug Allergies (Unverified , 03/31/18) Home Medications Aspirin 81 Mg Tablet.dr, 81 MG PO HS, (Reported) Butorphanol Tartrate 25 Mg Ucon, 25 MG NS TID Prescribed by: NICHOLE CARDOZA on 03/31/18 1124 Folic Acid 1 Mg Tablet, 3 MG PO HS, (Reported) TAKES 3 (1MG) TABLETS Jkw450/FA/Omega3/Dha/Fish Oil 1 Each Tab.chew, 2 TAB.CHEW PO HS, (Reported) Progesterone,Micronized 200 Mg Capsule, 200 MG PO HS, (Reported) Patient Home Medication List Home Medication List Reviewed: Yes Physical Exam-Cardiology Physical Exam Vital Signs/I&O 03/31/18 03/31/18 03/31/18 03/31/18 02:54 03:34 05:32 05:40 Temp 99.6 99.6 99.6 Pulse 148 148 105 Resp 22 22 19 B/P (MAP) 136/92 (107) 136/92 104/62 (76) Pulse Ox 100 97 O2 Delivery Room Air 03/31/18 03/31/18 03/31/18 03/31/18 05:40 07:05 07:14 07:34 Temp 98.4 98.2 Pulse 99 99 95 91 Resp 20 22 B/P (MAP) 111/64 106/61 (76) Pulse Ox 97 96 O2 Delivery Room Air Room Air 03/31/18 03/31/18 03/31/18 08:00 12:00 12:41 Temp 98.0 Pulse 89 84 Resp 18 B/P (MAP) 106/72 (83) Pulse Ox 98 O2 Delivery Room Air Room Air Capillary Refill : Less Than 3 Seconds Constitutional: AAO x 3, well-developed, well-nourished HEENT: PERRL, hearing is well preserved, oral hygience is good Neck: No carotid bruit; carotid pulses are 2 + bilaterally Respiratory: No accessory muscle use, No respiratory distress; chest expansion is symmetric, chest is bilaterally symmetric, lungs clear to auscultation Cardiovascular: regular rate-rhythm; No JVD; S1 and S2 Gastrointestinal: No tender; soft, round, audible bowel sounds Extremities: no lower extremity edema bilateral Neurologic/Psychiatric: grossly intact, power is 5/5 both on sides Skin: No rash Lymphatic: no adenopathy Data Review Labs Laboratory Tests 03/31/18 03:04: White Blood Count 14.3H, Red Blood Count 4.30L, Hemoglobin 13.4, Hematocrit 38, Mean Corpuscular Volume 89, Mean Corpuscular Hemoglobin 31, Mean Corpuscular Hemoglobin Concent 35, Red Cell Distribution Width 12.9, Platelet Count 161, Mean Platelet Volume 10.6H, Neutrophils (%) (Auto) 94H, Lymphocytes (%) (Auto) 3L, Monocytes (%) (Auto) 4, Eosinophils (%) (Auto) 0, Basophils (%) (Auto) 0, Neutrophils # (Auto) 13.4H, Lymphocytes # (Auto) 0.4L, Monocytes # (Auto) 0.5, Eosinophils # (Auto) 0.0, Basophils # (Auto) 0.0, Neutrophils % (Manual) 72, Lymphocytes % (Manual) 4, Monocytes % (Manual) 2, Eosinophils % (Manual) 4, Basophils % (Manual) 1, Band Neutrophils 17, Blood Morphology Comment NORMAL, Prothrombin Time 13.0, INR Comment 1.0, Activated Partial Thromboplast Time 25, D-Dimer 2.81H, Sodium Level 133L, Potassium Level 3.7, Chloride Level 102, Carbon Dioxide Level 19L, Anion Gap 12, Blood Urea Nitrogen 9, Creatinine 0.72, Estimat Glomerular Filtration Rate > 60, BUN/Creatinine Ratio 13, Glucose Level 110H, Lactic Acid Level 2.28*H, Calcium Level 9.1, Corrected Calcium 9.3, Magnesium Level 1.6L, Total Bilirubin 0.7, Aspartate Amino Transf (AST/SGOT) 25 , Alanine Aminotransferase (ALT/SGPT) 18, Alkaline Phosphatase 74, Troponin I < 0.028, C-Reactive Protein High Sensitivity 1.40H, B-Type Natriuretic Peptide 28.0, Total Protein 7.3, Albumin 3.8, Lipase 43 03/31/18 03:20: Urine Color YELLOW, Urine Clarity CLEAR, Urine pH 7, Urine Specific [place] 1.010L, Urine Protein NEGATIVE, Urine Glucose (UA) NEGATIVE, Urine Ketones 1+H, Urine Nitrite NEGATIVE, Urine Bilirubin NEGATIVE, Urine Urobilinogen NORMAL, Urine Leukocyte Esterase 1+H, Urine RBC (Auto) NEGATIVE, Urine RBC NONE, Urine WBC RARE, Urine Squamous Epithelial Cells 2-5, Urine Crystals NONE, Urine Bacteria TRACE, Urine Casts NONE, Urine Mucus NEGATIVE, Urine Culture Indicated CULTURE PENDING, Urine Opiates Screen NEGATIVE, Urine Oxycodone Screen NEGATIVE , Urine Methadone Screen NEGATIVE, Urine Propoxyphene Screen NEGATIVE, Urine Barbiturates Screen NEGATIVE, Ur Tricyclic Antidepressants Screen NEGATIVE, Urine Phencyclidine Screen NEGATIVE, Urine Amphetamines Screen NEGATIVE, Urine Methamphetamines Screen NEGATIVE, Urine Benzodiazepines Screen NEGATIVE, Urine Cocaine Screen NEGATIVE, Urine Cannabinoids Screen NEGATIVE 03/31/18 04:15: Erythrocyte Sedimentation Rate 12 03/31/18 05:27: Lactic Acid Level 1.48 03/31/18 09:45: Troponin I < 0.028, Thyroid Stimulating Hormone (TSH) 0.99 Microbiology 03/31/18 Influenza Types A,B Antigen (ELMER) - Final, Complete Laboratory Tests 03/31/18 03:04 A/P-Cardiology Assessment/Admission Diagnosis Chest pain and shortness of breath of undetermined etiology Echo on 03/31/18: LVEF 60-65%, PASP 25 mmHg, no pericard eff URI H/o palpitations in the past for which she states she has worn a Holter Monitor in the past which "did not show anything" H/o PCOS - progesterone tx 11 weeks H/o 4 miscarriages - states she has been on low dose ASA tx, per her [employer] ( according to the patient) Discussion and Recomendations Based on cardiac w/u, the symptoms do not appear to be of cardiac origin No cardiac meds are indicated at this time We recommend cardiac f/u at the office next week Other issues are being managed by Dr Cardoza (Hospitalist) and Dr. Gilmore (OB) Clinical Quality Measures DVT/VTE Risk/Contraindication: Risk Factor Score Per Nursin RFS Level Per Nursing on Admit: 3=High OCHOA QUINTANA MD FACP FAC CCDS Mar 31, 2018 14:58
--- NOTE | 2018-03-31 15:40 | Diagnostic Imaging Report ---
INDICATION: Chest pain, pericarditis versus PE. TECHNIQUE: Owing to the clinical suspicion for potentially life-threatening disease, perfusion imaging was performed. We did not perform ventilatory imaging to minimize radiation exposure in this patient. The patient received an intravenous dose of 5.5 mm of technetium 99m MAA and multiplanar perfusion imaging was performed. COMPARISON: Frontal chest radiograph of this same date. FINDINGS: There is symmetrical uptake about both lungs with no pleural-based matched or mismatched defects. There are no findings of PE. IMPRESSION: Normal Nuclear Medicine perfusion lung scan. Dictated by: Dictated on workstation # [id number]
[2018-03-31 16:12] VITALS: BP 107/74
[2018-03-31] MEDS ORDERED: ENOXAPARIN 100 MG/1 ML (LOVENOX) SYR SC SCH (17:00)
[2018-03-31 17:15] VITALS: BP 107/74
--- NOTE | 2018-03-31 17:15 | NUR ---
YASEMIN HENDERSON demonstrates understanding of discharge instructions and accurately returns instructions upon questioning. Copy of Post-Discharge Instructions given to PT. YASEMIN HENDERSON is able to manage continuing needs after discharge. Patients belongings returned to PT. Patient discharged from [facility] on 03/31/18 at 1715. YASEMIN HENDERSON left floor via W/C, accompanied by STAFF AND FAMILY PER AUTO.
[2018-03-31] MEDS ORDERED: [UNRECOGNIZED DRUG - OTHER] PO SCH (21:00)
[2018-03-31] MEDS ORDERED: OMEGA3 PO SCH (21:00)
[2018-03-31] MEDS ORDERED: PROGESTERONE 200 MG CAP (PROMETRIUM) NON-FORMULARY PO SCH (21:00)
[2018-03-31] MEDS ORDERED: ASPIRIN E.C. 81 MG (ECOTRIN) TAB PO SCH (21:00)
[2018-03-31] MEDS ORDERED: DHA PO SCH (21:00)
[2018-03-31] MEDS ORDERED: FOLIC ACID 1 MG TAB PO SCH (21:00)
== END 2018-03-31 11:24 | disposition home or self-care (01) ==
LOC: EDUNIT# 02:47 → ER 02:50 → UNDOADMOB 04:45 → 4TH 04:45 → UNDODISOB 17:15
PROVIDERS: ADMIT Internal Medicine; ATTEND Internal Medicine
DX: O99.411 Diseases of the circulatory system complicating pregnancy, first trimester (principal); R07.2 Precordial pain; I30.9 Acute pericarditis, unspecified; O26.21 Pregnancy care for patient with recurrent pregnancy loss, first trimester; O99.111 Other diseases of the blood and blood-forming organs and certain disorders involving the immune mechanism complicating pregnancy, first trimester; D72.823 Leukemoid reaction; Z3A.12 12 weeks gestation of pregnancy; O99.351 Diseases of the nervous system complicating pregnancy, first trimester; G40.909 Epilepsy, unspecified, not intractable, without status epilepticus; O99.511 Diseases of the respiratory system complicating pregnancy, first trimester; J06.9 Acute upper respiratory infection, unspecified; R00.0 Tachycardia, unspecified; O99.281 Endocrine, nutritional and metabolic diseases complicating pregnancy, first trimester; E28.2 Polycystic ovarian syndrome; Z79.82 Long term (current) use of aspirin
CPT/HCPCS: 36415; 71045; 80053; 80306; 81000; 83605; 83690; 83735; 83880; 84443; 84484; 85007; 85027; 85379; 85610; 85652; 85730; 86141; 87040; 87088; 87804; 93005; 93041; 93306; G0378

== ENCOUNTER → 2018-04-04 | Outpatient (CLI) | payer OTHER ==
[~2018-04-04] MED LIST: ASPI-983 PO; BTR10SP2 NS; FOLI1TAB24 PO; PNV11TAB5 PO; PROG200C6 PO
== END ==
LOC: LAB 12:11
PROVIDERS: ATTEND Obstetrics & Gynecology
DX: N91.2 Amenorrhea, unspecified (principal)
CPT/HCPCS: 36415; 84702

== ENCOUNTER 2018-10-05 17:18 | Outpatient (CLI) | payer OTHER ==
[~2018-10-05] VITALS: Ht 167.6 cm; Wt 96.7 kg
[~2018-10-05 17:18] MED LIST changes: +PROG200C10 PO; -PROG200C6 PO
--- NOTE | 2018-10-05 17:23 | NUR ---
YASEMIN HENDERSON presented to unit via AMBULATION from ED, accompanied by S.O., with c/o CONTRACTIONS. YASEMIN HENDERSON weighed, gowned, voided, and to bed. EFHM and TOCO applied, VS taken. YASEMIN HENDERSON oriented to bed controls, call light, TV, heat, and A/C controls.
[2018-10-05 17:42] VITALS: BP 138/88
[2018-10-05 17:56] LABS: BILIRUBIN,URINE NEGATIVE (NEGATIVE); CLARITY,URINE CLEAR; COLOR,URINE YELLOW; GLUCOSE, URINE (UA) NEGATIVE (NEGATIVE); KETONES,URINE 1+ (NEGATIVE); LEUKOCYTE ESTERASE ,URINE 2+ (NEGATIVE); NITRITE,URINE NEGATIVE (NEGATIVE); PH,URINE 8 (5-9); PROTEIN,URINE 1+ (NEGATIVE); UROBILINOGEN,URINE 1 MG/DL (NORMAL)
[2018-10-05 17:59] VITALS: BP 125/69
[2018-10-05 18:04] LABS: BACTERIA,URINE MODERATE /HPF
[2018-10-05 18:14] VITALS: BP 125/74
[2018-10-05 18:30] VITALS: BP 130/86
--- NOTE | 2018-10-05 18:31 | NUR ---
DR. ORDONEZ CALLED AND NOTIFIED OF PT ARRIVAL, C/O CTX SINCE 1330/1400, BUT MOSTLY IN BACK, THEY DO NOT WRAP AROUND. NOTIFIED OF SVE, FHR, CTX PATTERN, VS, UA RESULTS. ORDERS REC'D TO CALL IN MACROBID 100MG BID X10 DAYS AND D/C HOME WITH LABOR PRECAUTIONS.
--- NOTE | 2018-10-05 18:37 | NUR ---
TOI CALLED IN TO [facility]
--- NOTE | 2018-10-05 18:40 | NUR ---
DISCHARGE INSTRUCTIONS EXPLAINED TO PT WITH COPY PROVIDED TO PT. PT NOTIFIED OF SCRIPT CALLED IN TO [facility]. PT VERBALIZES UNDERSTANDING OF INSTRUCTIONS AND SIGNS TO VERIFY, DENIES QUESTIONS OR CONCERNS. PT AMBULATES OFF UNIT ACCOMPANIED BY S.O. TO PRIVATE VEHICLE WITH ALL PERSONAL BELONGINGS. NO S/S OF DISTRESS NOTED.
== END 2018-10-05 19:51 | disposition home or self-care (01) ==
LOC: WSo 17:18 → LDRP 17:19 → WS 19:50 → WSo 19:51
PROVIDERS: ATTEND Obstetrics & Gynecology
DX: O62.9 Abnormality of forces of labor, unspecified (principal); Z3A.37 37 weeks gestation of pregnancy
CPT/HCPCS: 81000; 87088; 99213

== ENCOUNTER 2018-10-16 05:34 | Inpatient (IN) | payer OTHER ==
[~2018-10-16] VITALS: Ht 167.6 cm; Wt 98.0 kg
[2018-10-16] VITALS (44 sets, daily range): BP systolic 105–167; BP diastolic 53–101
[2018-10-16] MEDS ORDERED: D5 LR IV SOLUTION 1,000 ML IV ONE (05:36)
--- NOTE | 2018-10-16 05:40 | NUR ---
YASEMIN HENDERSON presented to unit via ambulation from home/ED, accompanied by , for INDUCTION. YASEMIN HENDERSON weighed, gowned, voided, and to bed. EFHM and TOCO applied, VS taken. YASEMIN HENDERSON oriented to bed controls, call light, TV, heat, and A/C controls.
[2018-10-16] MEDS ORDERED: D5 LR IV SOLUTION 1,000 ML IV SCH (06:04)
[2018-10-16] MEDS ORDERED: OXYTOCIN/NORMAL SALINE 500 ML IV ONE (06:08)
[2018-10-16] MEDS ORDERED: SUFENTA 0.6MCG/ML BUPIVA 0.125 100 ML ONE (06:08)
[2018-10-16] MEDS ORDERED: MINERAL OIL CONCENTRATE 99.9% 15 ML UDC TOP PRN (06:15)
[2018-10-16 06:19] LABS: BASOPHILS % (AUTO) 0 % (0-10); EOSINOPHILS # (AUTO) 0.1 10^3/uL (0.0-0.3); EOSINOPHILS % (AUTO) 1 % (0-10); HEMATOCRIT 35 % (35-52); HEMOGLOBIN 11.9 G/DL (11.5-16.0); LYMPHOCYTES # (AUTO) 1.8 X 10^3 (1.0-4.0); LYMPHOCYTES % (AUTO) 21 % (12-44); MEAN CORPUSCULAR HEMOGLOBIN 30 PG (25-34); MEAN CORPUSCULAR HGB CONC 34 G/DL (32-36); MEAN CORPUSCULAR VOLUME 89 FL (80-99); MEAN PLATELET VOLUME 12.4 FL (7.4-10.4); MONOCYTES # (AUTO) 0.6 X 10^3 (0.0-1.0); MONOCYTES % (AUTO) 8 % (0-12); NEUTROPHILS # (AUTO) 5.8 X 10^3 (1.8-7.8); NEUTROPHILS % (AUTO) 70 % (42-75); PLATELET COUNT 138 10^3/uL (130-400); RED CELL DISTRIBUTION WIDTH 13.1 % (10.0-14.5); WHITE BLOOD COUNT 8.3 10^3/uL (4.3-11.0)
[2018-10-16] MEDS ORDERED: OXYTOCIN/NORMAL SALINE 500 ML IV SCH ×2 (06:48→11:49)
[2018-10-16] MEDS ORDERED: BUPIVACAINE 0.25% 30 ML (SENSORCAINE) VIAL ONE (07:11)
[2018-10-16] MEDS ORDERED: fentaNYL INJECTION 100 MCG/2 ML AMP ONE (07:12)
--- NOTE | 2018-10-16 07:14 | History & Physical-OB ---
OB - Chief Complaint & HPI Date/Time Date of Admission: Date of Admission: Oct 16, 2018 at 05:34 Date seen by a Provider: Oct 16, 2018 Time Seen by a Provider: 07:00 Chief Complaint/History OB-Reason for Admission/Chief: Induction of Labor Hx : 6 Hx Para: 2 Expected Date of Delivery: Oct 23, 2018 Gestational Age in Weeks: 39 Gestational Age in Days: 0 Indication for induction: other (39 weeks) Admission Nurse Assessment Rev: Yes Allergies and Home Medications Allergies Coded Allergies: hydrocodone (Verified Allergy, Unknown, 10/16/18) hallucinations Home Medications Folic Acid 1 Mg Tablet, 3 MG PO HS, (Reported) TAKES 3 (1MG) TABLETS Rxt410/FA/Omega3/Dha/Fish Oil 1 Each Tab.chew, 2 TAB.CHEW PO HS, (Reported) Patient Home Medication List Home Medication List Reviewed: Yes OB - History Hx of Present Care: Yes Ultrasounds: Normal mid trimester US Obstetrical Complications: None Medical Complications: None Information Induced Hypertension: No Maternal Gestational Diabetes: No Hemorrhage: No Obstetrical History Hx : 6 Hx Para: 2 Hx # Term Pregnancies: 2 Hx # Pregnancies: 0 Number of Living Children: 2 Hx Total # of Abortions (Spona: 3 Hx Multiple Gestation: No Hx Ectopic : No Hx Stillbirth: No Hx Complication: No Hx Induced Hypertens: No Hx Maternal Gestational Diabet: No Hx Hemorrhage: No Delivery History Hx Dystocia: No Hx Forceps Assisted Delivery: No Hx Vacuum Extraction Assisted: No Hx Placenta Abnormality: No Hx Distress: No Hx Large For Gestational Age I: No Hx Small for Gestational Age I: No Hx Section: No Hx Vaginal Delivery Post C-Sec: No Hx Blood Disorders: No Adverse Rxn to Tranfusion: No Patient Past Medical History Noncontributory Social History/Family History HIV/AIDS: No Recent Infectious Disease Expo: No Sexually Transmitted Disease: No Alcohol Use: Denies Use Recreational Drug Use: No Smoking Cessation: Never smoker 2nd Hand Smoke Exposure: No Immunizations Date of Influenza Vaccine: Dec 13, 2017 OB - Admission Exam Physical Exam Vitals: Vital Signs 10/16/18 05:46 Temp 97.0 Pulse 102 Resp 18 B/P (MAP) 140/87 (104) O2 Delivery Room Air HEENT: NCAT Heart: Rhythm Normal Lungs: Clear Abdomen: Gravid Extremities: Edema Cervical Dilatation: 2cm Effacement: Other (40%) Station: -3 Membranes: Intact (AROM--fluid clear) Heart Rate: 140's Accelerations: Accelerations Present Decelerations: No Decelerations Short Term Variability: Present Mcc Variability: Average (6-25) Contractions on Admission: 6-10 Minutes Apart Intensity: Mild Hinds Scoring Tool (Modified) Dilation (cm): 1-2cm (1) Effacement (%): 31-51% (1) Descent/Station: -3 (0) Cervix Consistency: Medium(1) Cervix Position: Posterior (0) Labs Laboratory Tests Test 10/16/18 06:05 Range/Units White Blood Count 8.3 4.3-11.0 10^3/uL Red Blood Count 3.99 L 4.35-5.85 10^6/uL Hemoglobin 11.9 11.5-16.0 G/DL Hematocrit 35 35-52 % Mean Corpuscular Volume 89 80-99 FL Mean Corpuscular Hemoglobin 30 25-34 PG Mean Corpuscular Hemoglobin Concent 34 32-36 G/DL Red Cell Distribution Width 13.1 10.0-14.5 % Platelet Count 138 130-400 10^3/uL Mean Platelet Volume 12.4 H 7.4-10.4 FL Neutrophils (%) (Auto) 70 42-75 % Lymphocytes (%) (Auto) 21 12-44 % Monocytes (%) (Auto) 8 0-12 % Eosinophils (%) (Auto) 1 0-10 % Basophils (%) (Auto) 0 0-10 % Neutrophils # (Auto) 5.8 1.8-7.8 X 10^3 Lymphocytes # (Auto) 1.8 1.0-4.0 X 10^3 Monocytes # (Auto) 0.6 0.0-1.0 X 10^3 Eosinophils # (Auto) 0.1 0.0-0.3 10^3/uL Basophils # (Auto) 0.0 0.0-0.1 10^3/uL OB - Assessment/Plan/Diagnosis Assessment Assessment: induction of labor (Intrauterine at 39 week) Admission Dx Intrauterine at 39 week Admission Status: Inpatient Order (span 2 midnights) Reason for Inpatient Admission: Intrauterine at 39 week Plan Plan: Induction Induction Method: per Pitocin Protocol RHINA ORDONEZ DO Oct 16, 2018 07:14
[2018-10-16] MEDS ORDERED: LACTATED RINGERS 1,000 ML IV ONE (08:31)
[2018-10-16] MEDS ORDERED: EPIDURAL (SUFENTA 0.6MCG/ML BUPIVA 0.125%) 100 ML BAG EPI SCH (08:45)
[2018-10-16] MEDS ORDERED: NALOXONE 0.4 MG/ML 1 ML (NARCAN) VIAL IV PRN (08:45)
[2018-10-16] MEDS ORDERED: CATHETER FLUSH 10 ML SYR IV PRN (08:45)
[2018-10-16] MEDS ORDERED: diphenhydrAMINE 50 MG/ML INJ (BENADRYL) IV PRN (08:45)
[2018-10-16] MEDS: ONDANSETRON 4 MG/2 ML (SDV) Z0FRAN IV PRN ×2 (09:10→15:16)
[2018-10-16] MEDS ORDERED: LIDOCAINE 1% INJ 20 ML 20 ML VIAL ONE (11:18)
--- NOTE | 2018-10-16 11:51 | OB Labor & Delivery Record ---
Vag Delivery Note Vag Delivery Note Date of Delivery: 10/16/18 Preoperative Diagnosis: Fatuma Marquez is a (28 /Para 6 / 2, Gestational Age (wks)39with [] Postoperative Diagnosis: Same Surgeon: RHINA ORDONEZ Shank Scourer: [None] Anesthesia: [Epidural] Delivery Type: [Normal Spontaneous Vaginal Delivery ] Findings: [] Viable [Male] , apgars [], weight [] Lacerations:Right labial, superficial, hemostatic Intact placenta with 3 vessel cord. No nuchal cord, body cord or shoulder dys tocia Cytotec 800 mcg placed for hemorrhage prophylaxis Estimated Blood Loss: [200] ml Complications: None Condition: Stable Description of Procedure: The patient is a 28 year old female who presented [for Pitocin Induction of Labor. She was admitted and informed consent was obtained. Her labor course was unremarkable. She progressed to complete dilatation and began to push. She was then set up for delivery. The infant's head was delivered atraumatically in the [LES] position. The shoulders and remainder of the infant's body were then delivered without difficulty. Upon delivery, the head was held below the level of the perineum and the mouth and nares were bulb suctioned. The cord was doubly clamped and cut and the infant was handed off to the pediatric staff. An intact placenta with 3-vessel cord delivered via [place] and there was found to be minimal bleeding.~ Vigorous fundal massage was performed and the fundus was found to be firm. IV oxytocin was given. Examination of the vagina and perineum revealed a [right labial] laceration not repaired. Following the repair, sponge, instrument and needle counts were correct. Mom and baby were both in stable condition in the labor suite. Vitals - Labs Vital Signs - I&O Vital Signs Date Time Temp Pulse Resp B/P (MAP) Pulse Ox O2 Delivery O2 Flow Rate FiO2 10/16/18 08:11 82 18 131/92 (105) 98 Room Air 10/16/18 08:06 82 18 140/89 (106) 94 Room Air 10/16/18 07:58 93 18 151/98 (115) 98 Room Air 10/16/18 07:53 103 18 135/75 (95) Room Air 10/16/18 07:50 91 18 146/85 (105) 98 Room Air 10/16/18 07:46 99 18 151/95 (113) 98 Room Air 10/16/18 07:43 87 18 147/83 (104) 98 Room Air 10/16/18 07:40 94 18 159/92 (114) 98 Room Air 10/16/18 07:37 88 18 156/81 (106) 96 Room Air 10/16/18 07:35 88 18 150/101 (117) 97 Room Air 10/16/18 07:32 88 18 157/94 (115) 99 Room Air 10/16/18 07:20 92 18 142/81 (101) Room Air 10/16/18 07:10 98.0 84 18 139/83 (101) Room Air 10/16/18 06:51 93 18 144/88 (106) Room Air 10/16/18 05:46 97.0 102 18 140/87 (104) Room Air Labs Laboratory Tests 10/16/18 06:05: White Blood Count 8.3, Red Blood Count 3.99L, Hemoglobin 11.9, Hematocrit 35, Mean Corpuscular Volume 89, Mean Corpuscular Hemoglobin 30, Mean Corpuscular Hemoglobin Concent 34, Red Cell Distribution Width 13.1, Platelet Count 138, Mean Platelet Volume 12.4H, Neutrophils (%) (Auto) 70, Lymphocytes (%) (Auto) 21, Monocytes (%) (Auto) 8, Eosinophils (%) (Auto) 1, Basophils (%) (Auto) 0, Neutrophils # (Auto) 5.8, Lymphocytes # (Auto) 1.8, Monocytes # (Auto) 0.6, Eosinophils # (Auto) 0.1, Basophils # (Auto) 0.0 RHINA ORDONEZ DO Oct 16, 2018 11:51
[2018-10-16] MEDS ORDERED: BENZOCAINE/MENTHOL (DERMOPLAST) 56 ML CAN TP PRN (12:00)
[2018-10-16] MEDS ORDERED: MEASLES,MUMPS,RUBELLA 1 EA INJ SQ ONE (12:00)
[2018-10-16] MEDS ORDERED: TETANUS,DIPTH,PERTUSS P/F (BOOSTRIX) 0.5 ML VIAL IM ONE (12:00)
[2018-10-16] MEDS ORDERED: WITCH HAZEL(TUCKS) 40 EA JAR TOP PRN (12:00)
[2018-10-16] MEDS: IBUPROFEN 800 MG (MOTRIN) TAB PO SCH ×2 (12:50→21:07)
[2018-10-16] MEDS ORDERED: CATHETER FLUSH 10 ML SYR IV SCH ×2 (14:00)
--- NOTE | 2018-10-16 16:28 | NUR ---
dr dye here and to room to see patient
[2018-10-16] MEDS: ACETAMINOPHEN 500 MG TAB (TYLENOL) PO SCH ×2 (17:59→23:08)
[2018-10-16] MEDS: DOCUSATE SODIUM 100 MG (COLACE) CAP PO SCH (21:07)
[2018-10-17 01:05] VITALS: BP 112/73
[2018-10-17 04:14] VITALS: BP 120/77
[2018-10-17] MEDS: IBUPROFEN 800 MG (MOTRIN) TAB PO SCH ×2 (04:14→11:45)
[2018-10-17 05:46] LABS: BASOPHILS % (AUTO) 0 % (0-10); EOSINOPHILS # (AUTO) 0.1 10^3/uL (0.0-0.3); EOSINOPHILS % (AUTO) 1 % (0-10); HEMATOCRIT 33 % (35-52); LYMPHOCYTES # (AUTO) 1.9 X 10^3 (1.0-4.0); LYMPHOCYTES % (AUTO) 22 % (12-44); MEAN CORPUSCULAR HEMOGLOBIN 30 PG (25-34); MEAN CORPUSCULAR HGB CONC 33 G/DL (32-36); MEAN CORPUSCULAR VOLUME 90 FL (80-99); MEAN PLATELET VOLUME 11.9 FL (7.4-10.4); MONOCYTES # (AUTO) 0.8 X 10^3 (0.0-1.0); MONOCYTES % (AUTO) 9 % (0-12); NEUTROPHILS # (AUTO) 5.8 X 10^3 (1.8-7.8); NEUTROPHILS % (AUTO) 67 % (42-75); PLATELET COUNT 112 10^3/uL (130-400); WHITE BLOOD COUNT 8.6 10^3/uL (4.3-11.0)
[2018-10-17] MEDS: ACETAMINOPHEN 500 MG TAB (TYLENOL) PO SCH ×2 (06:27→11:50)
[2018-10-17] MEDS ORDERED: PRENATAL VITAMIN 1 EA TAB PO SCH (07:00)
--- NOTE | 2018-10-17 07:18 | Discharge Summary ---
Diagnosis/Chief Complaint Date of Admission Oct 16, 2018 at 05:34 Date of Discharge October 17, 2018 Discharge Date: Oct 17, 2018 Discharge Time: 12:00 Admission Diagnosis Admission Diagnosis Intrauterine at 39 weeks Discharge Diagnosis Intrauterine at 39 weeks--delivered Reason Hospital Visit Pitocin Induction of Labor Discharge Summary Hospital Course Hospital Course Ms. Marquez was admitted for Pitocin Induction of Labor. I artificially ruptured her membranes. She received an epidural for antepartum pain manag ement. She progressed to complete, delivered a healthy male infant. The remainder of her hospitalization was unremarkable. Her vital signs remained stable throughout her hospitalization. She was discharged on Day #1 with instructions, prescriptions, and a follow up appointment. Labs Laboratory Tests 10/16/18 06:05: Red Blood Count 3.99L, Mean Platelet Volume 12.4H 10/17/18 05:35: Red Blood Count 3.65L, Mean Platelet Volume 11.9H, Hemoglobin 11.0L, Hematocrit 33L, Platelet Count 112L Procedures None. Discharge Physical Examination Allergies: Coded Allergies: hydrocodone (Verified Allergy, Unknown, 10/16/18) hallucinations Vitals & I&Os Vital Signs Date Time Temp Pulse Resp B/P (MAP) Pulse Ox O2 Delivery O2 Flow Rate FiO2 10/17/18 04:14 98.0 69 18 120/77 (91) 96 Room Air General Appearance: Alert, Oriented X3, Cooperative HEENT: Atraumatic Respiratory: Clear to Auscultation Cardiovascular: Regular Rate, No Murmurs Abdominal: Normal Bowel Sounds Extremities: No Clubbing, No Cyanosis Skin: No Rashes Neuro: Normal Gait, Normal Speech Psych/Mental Status: Mental Status NL Discharge Home Medications Reviewed and agree with Discharge Medication list on patient's Discharge Instruction sheet Instructions to Patient/Family Please see electronic discharge instructions given to patient. Clinical Quality Measures DVT/VTE Risk/Contraindication: Risk Factor Score Per Nursin RFS Level Per Nursing on Admit: 1=Low/No VTE RHINA GAMINO DO Oct 17, 2018 07:18
[2018-10-17] MEDS ORDERED: DOCU100C37 PO (07:21)
[2018-10-17] MEDS ORDERED: OXC5T PO (07:21)
[2018-10-17] MEDS ORDERED: IBUP-1780 PO (07:21)
[2018-10-17] MEDS ORDERED: ACET-77 PO (07:21)
[2018-10-17 07:30] VITALS: BP 129/68
--- NOTE | 2018-10-17 07:41 | Anesthesia-Regional Post-Op ---
Regional Patient Condition Mental Status: Alert, Oriented x3 Circulation: Same as Pre-Op Headache: Absent Sensation: Full Recovery Motor Block: Absent Post Op Complications Complications None Follow Up Care/Instructions Patient Instructions None needed. Anesthesia/Patient Condition Patient is doing well, no complaints, stable vital signs, no apparent adverse anesthesia problems. No complications reported per nursing. D/C home per [place] Criteria: Yes MACO SHAHID CRNA Oct 17, 2018 07:41
[2018-10-17] MEDS: DOCUSATE SODIUM 100 MG (COLACE) CAP PO SCH (11:45)
--- NOTE | 2018-10-17 14:55 | NUR ---
YASEMIN HENDERSON demonstrates understanding of discharge instructions and accurately returns instructions upon questioning. Copy of Post-Discharge Instructions and Medication Discharge Instructions given to patient. YASEMIN HENDERSON is able to manage continuing needs after discharge. Patients belongings returned to patient. Skin dry and intact; no breakdown noted. Patient discharged from [facility] on 10-17-18 at 1455. YASEMIN HENDERSON left floor via ambulation, accompanied by staff and s/o.
== END 2018-10-17 14:55 | disposition home or self-care (01) | DRG 807 ==
LOC: LDRP 05:34
PROVIDERS: ADMIT Obstetrics & Gynecology; ATTEND Obstetrics & Gynecology
PROC: 10E0XZZ Delivery of Products of Conception, External Approach (ICD-10-PCS; principal; 2018-10-16)
PROC: 3E033VJ Introduction of Other Hormone into Peripheral Vein, Percutaneous Approach (ICD-10-PCS; 2018-10-16)
DX: O70.0 First degree perineal laceration during delivery (principal); Z88.5 Allergy status to narcotic agent; Z3A.39 39 weeks gestation of pregnancy; Z37.0 Single live birth
CPT/HCPCS: 36415; 85025; 86850; 86900; 86901

== ENCOUNTER 2018-11-06 12:29 | Emergency (ER) | payer OTHER ==
[~2018-11-06] VITALS: Ht 167 cm; Wt 85.0 kg
[~2018-11-06 12:29] MED LIST changes: +ACET-77 PO; +DOCU100C37 PO; +IBUP-1780 PO; +OXC5T PO
[2018-11-06 12:33] VITALS: BP 180/97
[2018-11-06] MEDS ORDERED: fentaNYL INJECTION 100 MCG/2 ML AMP IVP ONE (12:45)
[2018-11-06] MEDS ORDERED: ONDANSETRON 4 MG/2 ML (SDV) Z0FRAN IVP ONE (12:45)
[2018-11-06] MEDS ORDERED: NS IV 1000 ML 1,000 ML IV SCH (12:45)
--- NOTE | 2018-11-06 12:54 | NUR ---
pt states pain medication only helped for 3-4 minutes and states the pain has come back and is worse than when she got here, provider notified of this
[2018-11-06] MEDS ORDERED: KETOROLAC 30 MG/ML VIAL IVP ONE (13:00)
[2018-11-06 13:10] LABS: BILIRUBIN,URINE NEGATIVE (NEGATIVE); CLARITY,URINE SLIGHTLY CLOUDY; COLOR,URINE YELLOW; GLUCOSE, URINE (UA) NEGATIVE (NEGATIVE); KETONES,URINE 2+ (NEGATIVE); LEUKOCYTE ESTERASE ,URINE 3+ (NEGATIVE); NITRITE,URINE NEGATIVE (NEGATIVE); PH,URINE 6 (5-9); PROTEIN,URINE 2+ (NEGATIVE); UROBILINOGEN,URINE NORMAL (NORMAL)
[2018-11-06 13:19] LABS: BACTERIA,URINE FEW /HPF; RBC,URINE >100 /HPF
--- NOTE | 2018-11-06 13:54 | NUR ---
pt states pain has decreased to a 3/10, pt denies any needs or c/o, pt shows no s/s of distress, vs assessed and stable, will continue to monitor
--- NOTE | 2018-11-06 13:57 | Diagnostic Imaging Report ---
PROCEDURE: CT abdomen and pelvis without contrast. TECHNIQUE: Multiple contiguous axial images were obtained through the abdomen and pelvis without the use of intravenous contrast. Auto Exposure Controls were utilized during the CT exam to meet ALARA standards for radiation dose reduction. INDICATION: Right back pain radiating into the right groin in patient, who is 3 weeks . Unenhanced images of the liver and spleen are unremarkable. There is no evidence of gallbladder, pancreatic or adrenal gland abnormality. There is no evidence of renal calculus. There is mild right hydronephrosis and right hydroureter. Note is made of an approximately 0.3 cm calcification posterior and lateral to the urinary bladder which could reside within the distal right ureter. The uterus is prominent but otherwise unremarkable. There is no evidence of bladder calculus. Impression: 0.3 cm calcification in right hemipelvis may reside within or immediately adjacent to the distal right ureter. Presence of mild right hydronephrosis and hydroureter would support the presence of at least partially obstructing ureteric stone. Otherwise, no acute abnormality is identified in the abdomen and pelvis. Dictated by: Dictated on workstation # [id number]
--- NOTE | 2018-11-06 13:58 | Diagnostic Imaging Report ---
Indication: Right lower quadrant abdominal pain starting this morning with nausea and vomiting. She had given 3 weeks ago. Findings: Supine view of the abdomen demonstrates moderate amount of stool in the colon. Fat planes appear normal. There is a solitary moderately dilated loop of small bowel in the left midabdomen measuring 4 cm. This could be transient or a focal ileus. Impression: 1. There is moderately increased stool in the colon. 2. There is a solitary dilated air-filled loop of small bowel in the left side of the abdomen. This could be transient or related to a localized ileus. Dictated by: Dictated on workstation # [id number]
[2018-11-06 14:05] LABS: BASOPHILS % (AUTO) 1 % (0-10); EOSINOPHILS % (AUTO) 1 % (0-10); HEMATOCRIT 40 % (35-52); HEMOGLOBIN 13.4 G/DL (11.5-16.0); LYMPHOCYTES # (AUTO) 0.7 X 10^3 (1.0-4.0); LYMPHOCYTES % (AUTO) 12 % (12-44); MEAN CORPUSCULAR HEMOGLOBIN 30 PG (25-34); MEAN CORPUSCULAR HGB CONC 34 G/DL (32-36); MEAN CORPUSCULAR VOLUME 89 FL (80-99); MEAN PLATELET VOLUME 11.5 FL (7.4-10.4); MONOCYTES # (AUTO) 0.4 X 10^3 (0.0-1.0); MONOCYTES % (AUTO) 6 % (0-12); NEUTROPHILS # (AUTO) 4.8 X 10^3 (1.8-7.8); NEUTROPHILS % (AUTO) 81 % (42-75); PLATELET COUNT 205 10^3/uL (130-400); RED CELL DISTRIBUTION WIDTH 12.5 % (10.0-14.5)
[2018-11-06 14:27] LABS: ALANINE AMINOTRANSFERASE 35 U/L (0-55); ALKALINE PHOSPHATASE 119 U/L (40-136); AMYLASE 58 U/L (25-125); BILIRUBIN,TOTAL 0.6 MG/DL (0.1-1.0); BUN/CREATININE RATIO 8; CALCIUM 8.7 MG/DL (8.5-10.1); CARBON DIOXIDE 24 MMOL/L (21-32); CHLORIDE 108 MMOL/L (98-107); CREATININE SERUM 0.89 MG/DL (0.60-1.30); GFR ESTIMATED > 60; GLUCOSE 82 MG/DL (70-105); LIPASE 23 U/L (8-78); POTASSIUM 3.9 MMOL/L (3.6-5.0); SODIUM 143 MMOL/L (135-145); TOTAL PROTEIN 7.2 GM/DL (6.4-8.2)
--- NOTE | 2018-11-06 14:30 | ED GU-Female ---
General Chief Complaint: General Problems/Pain Stated Complaint: SIDE PAIN;VOMITING Nursing Triage Note: has R sided flank pain that started about 3 hours ago, pain has increased and has started vomiting Nursing Sepsis Screen: No Definite Risk Source: patient Exam Limitations: no limitations History of Present Illness Date Seen by Provider: Nov 06, 2018 Time Seen by Provider: 12:44 Initial Comments 28-year-old female who presents to the emergency room with complaints of right- sided flank pain that started 3 hours prior to arrival. She reports the pain is causing her to vomit. She reports history of kidney stones and describes this pain is similar to previous kidney stones. Denies fevers. Radiation: right flank Associated Symptoms: nausea/vomiting Allergies and Home Medications Allergies Coded Allergies: hydrocodone (Verified Allergy, Unknown, 10/16/18) hallucinations Home Medications Acetaminophen 500 Mg Tablet, 1,000 MG PO Q6HR Prescribed by: RHINA E JEANIES on 10/17/18720 Docusate Sodium 100 Mg Capsule, 100 MG PO BID Prescribed by: RHINA E SEALS on 10/17/18720 Ibuprofen 800 Mg Tablet, 800 MG PO Q8HR Prescribed by: RHINA E SEALS on 10/17/18720 Oxycodone Hcl 5 Mg Tab, 5 MG PO Q6H PRN for PAIN-SEVERE Prescribed by: RHINA E SEALS on 10/17/18720 Sia851/FA/Omega3/Dha/Fish Oil 1 Each Tab.chew, 2 TAB.CHEW PO HS, (Reported) Patient Home Medication List Home Medication List Reviewed: Yes Review of Systems Review of Systems Constitutional: see HPI; No chills, No fever Gastrointestinal: see HPI, nausea, vomiting Genitourinary: see HPI, flank pain All Other Systemes Reviewed Negative Unless Noted: Yes Past Xdjsekt-[id number]-Hqlmku Hx Past Med/Social Hx: Reviewed Nursing Past Med/Soc Hx Patient Social History 2nd Hand Smoke Exposure: No Recent Foreign Travel: No Contact w/Someone Who Travel: No Recent Infectious Disease Expo: No Recent Hopitalizations: No Immunizations Up To Date Date of Influenza Vaccine: Dec 13, 2017 Seasonal Allergies Seasonal Allergies: No Past Medical History Surgeries: Yes (WISDOM TEETH) Appendectomy, Orthopedic Respiratory: No Neurological: Yes Headaches /Migraines, Seizure Disorder : No Female Reproductive Disorders: Polycystic Ovarian Dis Sexually Transmitted Disease: No HIV/AIDS: No Genitourinary: No Gastrointestinal: No Musculoskeletal: No Endocrine: No HEENT: No Cancer: No Psychosocial: No Integumentary: No Blood Disorders: No Adverse Reaction/Blood Tranf: No Family Medical History Reviewed Nursing Family Hx Physical Exam Vital Signs Vital Signs - First Documented 11/06/18 12:33 Temp 36.4 Pulse 77 Resp 18 B/P (MAP) 180/97 Capillary Refill : Less Than 3 Seconds Height, Weight, BMI Height: 5'6.00" Weight: 216lbs. 0.0oz. 97.618202wb; 30.00 BMI Method:Stated General Appearance: WD/WN, no apparent distress Cardiovascular: normal peripheral pulses, regular rate, rhythm, no edema, no gallop, no JVD, no murmur Respiratory: chest non-tender, lungs clear, normal breath sounds, no respiratory distress, no accessory muscle use, respiratory distress Gastrointestinal: normal bowel sounds, non tender, soft, no organomegaly, no pulsatile mass Extremities: normal capillary refill Neurologic/Psychiatric: alert, normal mood/affect, oriented x 3 Skin: normal color, warm/dry Progress/Results/Core Measures Suspected Sepsis Recent Fever Within 48 Hours: No Infection Criteria Present: None New/Unexplained Altered Menta: No Sepsis Screen: No Definite Risk SIRS Temperature: Pulse: 77 Respiratory Rate: 18 Laboratory Tests 11/06/18 13:55: White Blood Count 6.0 Blood Pressure 180 /97 Mean: 124 Laboratory Tests 11/06/18 13:55: Creatinine 0.89, Platelet Count 205, Total Bilirubin 0.6 Results/Orders Lab Results My Orders Medications Given in ED Vital Signs/I&O Capillary Refill : Less Than 3 Seconds Blood Pressure Mean: 124 Departure Impression Primary Impression: Kidney stone Disposition: 01 HOME, SELF-CARE Condition: Stable/Unchanged Departure-Patient Inst. Decision time for Depature: 14:29 Referrals: RHINA ORDONEZ DO (PCP/Family) Primary Care Physician Patient Instructions: Kidney Stones (DC) Add. Discharge Instructions: Continue your Keflex as previously prescribed for your mastitis prevent urinary tract infections. Strain all urine and if you should pass the stone take it with you to your follow-up appointment at Dr. Romo's office. Call today to schedule an appointment with Dr. Romo. Pump and dump your breastmilk for one day. Return back to the emergency room for worsening symptoms or concerns as needed. All discharge instructions reviewed with patient and/or family. Voiced understa nding. MARIANGEL GANN Nov 06, 2018 14:30
--- NOTE | 2018-11-06 14:40 | NUR ---
no change from previously documented assessment
== END 2018-11-06 14:41 | disposition home or self-care (01) ==
LOC: EDUNIT# 12:29 → ER 12:30
DX: N20.0 Calculus of kidney (principal); G40.909 Epilepsy, unspecified, not intractable, without status epilepticus; G43.909 Migraine, unspecified, not intractable, without status migrainosus; Z87.442 Personal history of urinary calculi; Z88.5 Allergy status to narcotic agent; Z90.49 Acquired absence of other specified parts of digestive tract
CPT/HCPCS: 36415; 74018; 74176; 80053; 81000; 82150; 83690; 85025; 87088

== ENCOUNTER → 2019-02-09 | Outpatient (CLI) | payer OTHER | LOC: LAB 08:37 | PROVIDERS: ATTEND Obstetrics & Gynecology | DX: Z34.90 Encounter for supervision of normal pregnancy, unspecified, unspecified trimester (principal); Z3A.00 Weeks of gestation of pregnancy not specified | CPT/HCPCS: 36415; 84702 ==

== ENCOUNTER → 2019-06-28 | Outpatient (CLI) | payer OTHER ==
[~2019-06-28] MED LIST changes: -ACET-77 PO; +ACET-78 PO; +CATHETER FLUSH 10 ML SYR IV PRN; +OXYC1TAB16 PO
--- NOTE | 2019-06-28 18:19 | Diagnostic Imaging Report ---
INDICATION: Right upper quadrant pain. EXAMINATION: Patient was a administered 5.4 mCi technetium 99m Choletec intravenously and imaging over the abdomen was performed. At 45 minutes patient ingested one can of Ensure and gallbladder ejection fraction was calculated. FINDINGS: There is homogeneous uptake of activity by the liver. Prompt excretion of activity into the common duct and gallbladder is noted. There is normal passage of activity into the small bowel. Gallbladder ejection fraction is lower limits of normal at 37%. Normal value is 35% or greater. IMPRESSION: 1. Patent cystic duct and common bile duct. 2. Lower limits of normal gallbladder ejection fraction of 37%. Dictated by: Dictated on workstation # [id number]
== END ==
LOC: CARD 13:12
DX: R10.11 Right upper quadrant pain (principal)
CPT/HCPCS: 78227

== ENCOUNTER 2019-06-29 09:52 | Day surgery (SDC) | payer OTHER ==
[~2019-06-29] VITALS: Ht 167.7 cm; Wt 81.5 kg
[2019-06-29] VITALS (11 sets, daily range): BP systolic 108–145; BP diastolic 68–90
[~2019-06-29 09:52] MED LIST changes: -CATHETER FLUSH 10 ML SYR IV PRN; -OXYC1TAB16 PO
--- OUTSIDE RECORDS SUMMARY | 2019-06-29 10:17 | XMS REPORT ---
Author Author Fatuma Barlow Organization [facility] Address [address] [place] [address] Care Team Providers Care Missile Mechanic Name Role Phone RENAE Barlow Unavailable PROBLEMS Type Condition ICD9-CM Code [id number] Code Onset Dates Condition S tatus SNOMED Code Problem Anxiety F41.9 Active 34451418 Problem Excessive and frequent menstruation with irregular cycle N92.1 Active 56192062 ALLERGIES No Information ENCOUNTERS Encounter Location Date Diagnosis [address] [place] [address] Jan, [address] [address] Dec, Presence of (intrauterine) c ontraceptive device Z97.5 ; Excessive and frequent menstruation with irregular cycle N92.1 and Encounter for IUD removal Z30.432 [address] [address] Nov, [facility] IN [facility] [address] [facility] [id number] [place] [address] 26 Nov, 2018 Mastitis N61.0 [address] [address] 08 Nov, 2018 IUD check up Z30.431 ; Prese nce of (intrauterine) contraceptive device Z97.5 and Excessive and frequent menstruation with irregular cycle N92.1 [facility] [id number] [place] [address] 30 Oct, 2018 care and examination Z39.2 an d Family planning Z30.09 [facility] [id number] [place] [address] Oct, [address] [facility] [address] [facility], [facility] [address] [place] [address] Oct, [facility] [place] [address] [place] [address] Sep, [facility] [address] [id number] [place] [address] Sep, Encounter for supervision of other carmella l , third trimester Z34.83 [facility] [place] GARCIA [address] [place] [address] Sep, [facility] [address] [id number] [place] [address] Sep, Encounter for supervision of other carmella l , third trimester Z34.83 [facility] [address] [id number] [place] [address] Aug, Encounter for supervision of other carmella l , third trimester Z34.83 [facility] [place] GARCIA [address] [place] [address] Aug, [facility] [place] GARCIA [address] [place] [address] Aug, [facility] [address] [id number] [place] [address] Aug, Encounter for supervision of other carmella l , third trimester Z34.83 [facility] [place] [address] [place] [address] Aug, [facility] [address] [id number] [place] [address] Aug, [facility] [address] [id number] [place] [address] Aug, [facility] [address] [id number] [place] [address] Aug, Encounter for supervision of other carmella l , third trimester Z34.[address] [place] [address] Jul, [facility] [id number] [place] [address] Jul, Encounter for supervision of other carmella l , third trimester Z34.83 [facility] [id number] [place] [address] Jul, Encounter for supervision of other carmella l , third trimester Z34.83 [address] [id number] [place] [address] Jul, Encounter for supervision of other carmella l , third trimester Z34.83 and Acute bronchitis, unspecified organism J20.[address] [place] [address] June, Encounter for supervision of other normal , third trimester Z34.[address] [place] [address] June, [address] [place] [address] June, [address] [place] [address] June, [facility] [address] [id number] [place] [address] June, Encounter for supervision of other carmella l , second trimester Z34.82 [facility] [address] [facility] [id number] [address] [place] [address] May, Viral upper respiratory trac t infection J06.9 [facility] [address] [facility] [id number] [address] [place] [address] May, Acute low back pain, unspeci fied back pain laterality, with sciatica presence unspecified M54.5 [facility] [address] [id number] [place] [address] May, Encounter for supervision of other carmella l , second trimester Z34.82 and Anxiety F41.9 [facility] [address] [facility] [place] [address] 08 May, 2018 Encounter for supervision of normal firs t in first trimester Z34.01 [facility] [place] [address] [place] [address] Apr, [facility] [id number] [place] [address] Apr, Encounter for supervision of normal firs t in first trimester Z34.01 [facility] [address] [facility] [id number] [address] [place] [address] 28 Mar, 2018 Fever R50.9 ; Influenza A J1 0.1 and heart tones not heard O76 [facility] [id number] [place] [address] 11 Mar, 2018 Encounter for supervision of normal firs t in first trimester Z34.01 [facility] [address] [id number] [place] [id number] Oct, Encounter for immunization Z23 [facility] IN [facility] [address] [id number] [address] [place] [address] Feb, Sore throat J02.9 and Viral pharyngitis J02.9 [facility] [address] [id number] [place] [address] 14 May, 2014 [facility] [id number] [place] [address] May, [facility] [id number] [place] [address] Apr, [facility] [id number] [place] [address] 05 Apr, 2014 [facility] [id number] [place] [address] Nov, [facility] [address] [address] Nov, [facility] [address] [facility] [id number] [place] [address] Oct, [facility] [address] [facility] [id number] [facility] [place] [address] Oct, [facility] [address] [id number] [place] [address] Sep, [facility] [address] [facility] [id number] [facility] [place] [address] Sep, [facility] [address] [facility] [id number] [facility] [place] [address] Sep, [facility] [address] [facility] [id number] [place] [address] Sep, [facility] [address] [id number] [place] [address] Sep, [facility] [address] [id number] [place] [address] Sep, [facility] [address] [facility] [id number] [place] [address] Sep, [facility] [address] [id number] [place] [address] Sep, [facility] [address] [id number] [place] [address] Aug, [facility] [address] [id number] [place] [address] Aug, [facility] [address] [facility] [id number] [place] [address] Aug, [facility] [address] [id number] [place] [address] Jul, [facility] [address] [id number] [place] [address] Jul, [facility] [address] [id number] [place] [address] June, [facility] [address] [id number] [place] [address] June, [facility] [address] [id number] [place] [address] June, [facility] [address] [id number] [place] [address] June, [facility] [address] [id number] [place] [address] Apr, [facility] [address] [id number] [place] [address] Apr, [facility] [address] [id number] [place] [address] Mar, [facility] [address] [id number] [place] [address] Mar, [facility] [id number] [place] [address] Nov, [facility] [id number] [place] [address] Nov, [facility] [address] [id number] [place] [address] Jul, [facility] [id number] [place] [address] June, [facility] [id number] [place] [address] June, [facility] [address] [id number] [place] [address] June, [facility] [address] [id number] [place] [address] June, [facility] [id number] [place] [address] June, [facility] [address] [id number] [place] [address] Mar, [facility] [id number] [place] [address] Mar, IMMUNIZATIONS No Known Immunizations SOCIAL HISTORY Never Assessed REASON FOR VISIT PLAN OF CARE VITAL SIGNS MEDICATIONS Unknown Medications RESULTS No Results PROCEDURES No Known procedures INSTRUCTIONS MEDICATIONS ADMINISTERED No Known Medications MEDICAL (GENERAL) HISTORY Type Description Date Medical History PCOS (Polycystic Ovary Syndrome) Medical History Polycystic ovaries Medical History Hirsutism Surgical History appendectomy 2013 Surgical History rt knee scope 2006 Surgical History wisdom teeth 2006 Hospitalization History surgery 2014 Hospitalization History child
--- OUTSIDE RECORDS SUMMARY | 2019-06-29 10:17 | XMS REPORT ---
Author Author Fatuma Barlow Organization [facility] Address [address] [place] [address] Care Team Providers Care Fundraising Director Name Role Phone RENAE Barlow Unavailable PROBLEMS Type Condition ICD9-CM Code [id number] Code Onset Dates Condition S tatus SNOMED Code Problem Anxiety F41.9 Active 36582762 Problem Excessive and frequent menstruation with irregular cycle N92.1 Active 25476995 ALLERGIES No Information ENCOUNTERS Encounter Location Date Diagnosis [address] [place] [address] Jan, [address] [address] Dec, Presence of (intrauterine) c ontraceptive device Z97.5 ; Excessive and frequent menstruation with irregular cycle N92.1 and Encounter for IUD removal Z30.432 [address] [address] [address], [place] [address] Nov, [facility] [address] [facility] [id number] [place] [address] 26 Nov, 2018 Mastitis N61.0 [address] [address] [address], [place] [address] 08 Nov, 2018 IUD check up Z30.431 ; Prese nce of (intrauterine) contraceptive device Z97.5 and Excessive and frequent menstruation with irregular cycle N92.1 [facility] [id number] [place] [address] 30 Oct, 2018 care and examination Z39.2 an d Family planning Z30.09 [facility] [id number] [place] [address] Oct, [address] [place] [address] Oct, [facility] [address] [place] [address] Oct, [facility] [place] [address] [place] [address] Sep, [facility] [address] [id number] [place] [address] Sep, Encounter for supervision of other carmella l , third trimester Z34.83 [facility] [place] GARCIA [address] [place] [address] Sep, [facility] [address] [id number] [place] [address] Sep, Encounter for supervision of other carmella l , third trimester Z34.83 [facility] [address] [id number] [place] [address] Aug, Encounter for supervision of other carmella l , third trimester Z34.83 [facility] [place] GARCIA [address] [place] [address] Aug, [facility] [place] GARCIA [address] [place] [address] Aug, [facility] [address] [id number] [place] [address] Aug, Encounter for supervision of other carmella l , third trimester Z34.83 [facility] [place] [address] [place] [address] Aug, [facility] [address] [id number] [place] [address] Aug, [facility] [address] [id number] [place] [address] Aug, [facility] [address] [id number] [place] [address] Aug, Encounter for supervision of other carmella l , third trimester Z34.[address] [place] [address] Jul, [facility] [id number] [place] [address] Jul, Encounter for supervision of other carmella l , third trimester Z34.83 [facility] [id number] [place] [address] Jul, Encounter for supervision of other carmella l , third trimester Z34.83 [address] [id number] [place] [address] Jul, Encounter for supervision of other carmella l , third trimester Z34.83 and Acute bronchitis, unspecified organism J20.[address] [place] [address] June, Encounter for supervision of other normal , third trimester Z34.[address] [place] [address] June, [address] [place] [address] June, [address] [place] [address] June, [facility] [address] [id number] [place] [address] June, Encounter for supervision of other carmella l , second trimester Z34.82 [facility] [address] [facility] [id number] [address] [place] [address] May, Viral upper respiratory trac t infection J06.9 [facility] [address] [facility] [id number] [address] [place] [address] May, Acute low back pain, unspeci fied back pain laterality, with sciatica presence unspecified M54.5 [facility] [address] [id number] [place] [address] May, Encounter for supervision of other carmella l , second trimester Z34.82 and Anxiety F41.9 [facility] [address] [id number] [place] [address] 08 May, 2018 Encounter for supervision of normal firs t in first trimester Z34.01 [facility] [place] [address] [place] [address] Apr, [facility] [id number] [place] [address] Apr, Encounter for supervision of normal firs t in first trimester Z34.01 [facility] [address] [facility] [id number] [address] [place] [address] 28 Mar, 2018 Fever R50.9 ; Influenza A J1 0.1 and heart tones not heard O76 [facility] [id number] [place] [address] 11 Mar, 2018 Encounter for supervision of normal firs t in first trimester Z34.01 [facility] [address] [id number] [place] [address] Oct, Encounter for immunization Z23 [facility] IN [facility] [address] [id number] [address] [place] [address] Feb, Sore throat J02.9 and Viral pharyngitis J02.9 [facility] [address] [id number] [place] [address] 14 May, 2014 [facility] [id number] [place] [address] May, [facility] [id number] [place] [address] Apr, [facility] [id number] [place] [address] 05 Apr, 2014 [facility] [id number] [place] [address] Nov, [facility] [address] [address] Nov, [facility] [address] [facility] [id number] [place] [address] Oct, [facility] [address] [facility] [id number] [facility] [place] [address] Oct, [facility] [address] [id number] [place] [address] Sep, [facility] [address] [facility] [id number] [facility] [address] Sep, [facility] [address] [facility] [id number] [facility] [address] Sep, [facility] [address] [facility] [id number] [place] [address] Sep, [facility] [address] [id number] [place] [address] Sep, [facility] [address] [id number] [place] [address] Sep, [facility] [address] [facility] [id number] [place] [address] Sep, [facility] [address] [id number] [place] [address] Sep, [facility] [address] [id number] [place] [address] Aug, [facility] [address] [id number] [place] [address] Aug, [facility] [address] [facility] [id number] [place] [address] Aug, [facility] [address] [id number] [place] [address] Jul, [facility] [address] [id number] [place] [address] Jul, [facility] [address] [id number] [place] [address] June, [facility] [address] [id number] [place] [address] June, [facility] [address] [id number] [place] [address] June, [facility] [address] [id number] [place] [address] June, [facility] [address] [id number] [place] [address] Apr, [facility] [address] [id number] [place] [address] Apr, [facility] [address] [id number] [place] [address] Mar, [facility] [address] [id number] [place] [address] Mar, [facility] [id number] [place] [address] Nov, [facility] [id number] [place] [address] Nov, [facility] [address] [id number] [place] [address] Jul, [facility] [id number] [place] [address] June, [facility] [id number] [place] [address] June, [facility] [address] [id number] [place] [address] June, [facility] [address] [id number] [place] [address] June, [facility] [id number] [place] [address] June, [facility] [address] [id number] [place] [address] Mar, [facility] [id number] [place] [address] Mar, IMMUNIZATIONS No Known Immunizations SOCIAL HISTORY [...]
--- OUTSIDE RECORDS SUMMARY | 2019-06-29 10:17 | XMS REPORT ---
Author Author Fatuma Barlow Organization [facility] Address [address] [place] [address] Care Team Providers Care Front Desk Host Name Role Phone RENAE Barlow Unavailable PROBLEMS Type Condition ICD9-CM Code LWK10-[id number] Code Onset Dates Condition S tatus SNOMED Code Problem Anxiety F41.9 Active 05892330 Problem Excessive and frequent menstruation with irregular cycle N92.1 Active [id number] ALLERGIES No Information ENCOUNTERS Encounter Location Date Diagnosis [address] [place] [address] Jan, [address] [address] Dec, Presence of (intrauterine) c ontraceptive device Z97.5 ; Excessive and frequent menstruation with irregular cycle N92.1 and Encounter for IUD removal Z30.432 [address] [address] Nov, [facility] [address] [facility] [id number] [address], [place] [address] 26 Nov, 2018 Mastitis N61.0 [address], [place] [address] 08 Nov, 2018 IUD check up Z30.431 ; Prese nce of (intrauterine) contraceptive device Z97.5 and Excessive and frequent menstruation with irregular cycle N92.1 [facility] [id number] [place] [address] 30 Oct, 2018 care and examination Z39.2 an d Family planning Z30.09 [facility] [id number] [place] [address] Oct, [address] [facility] [address] Oct, [facility] [address] [place] [address] Oct, [facility] [place] [address] [place] [address] Sep, [facility] [address] [facility] [place] [address] Sep, Encounter for supervision of other carmella l , third trimester Z34.83 [facility] [place] GARCIA [address] [place] [address] Sep, [facility] [address] [facility] [place] [address] Sep, Encounter for supervision of other carmella l , third trimester Z34.83 [facility] [address] [facility] [place] [address] Aug, Encounter for supervision of other carmella l , third trimester Z34.83 [facility] [place] GARCIA [address] [place] [address] Aug, [facility] [place] GARCIA [address] [place] [address] Aug, [facility] [address] [facility] [place] [address] Aug, Encounter for supervision of other carmella l , third trimester Z34.83 [facility] [place] [address] [place] [address] Aug, [facility] [address] [facility] [place] [address] Aug, [facility] [address] [facility] [place] [address] Aug, [facility] [address] [facility] [place] [address] Aug, Encounter for supervision of other carmella l , third trimester Z34.[address] [place] [address] Jul, [facility] [id number] [place] [address] Jul, Encounter for supervision of other carmella l , third trimester Z34.83 [facility] [id number] [place] [address] Jul, Encounter for supervision of other carmella l , third trimester Z34.83 [address] [facility] [place] [address] Jul, Encounter for supervision of other carmella l , third trimester Z34.83 and Acute bronchitis, unspecified organism J20.[address] [place] [address] June, Encounter for supervision of other normal , third trimester Z34.[address] [place] [address] June, [address] [place] [address] June, [address] [place] [address] June, [facility] [address] [facility] [place] [address] June, Encounter for supervision of other carmella l , second trimester Z34.82 [facility] [address] [facility] [id number] [address] [place] [address] May, Viral upper respiratory trac t infection J06.9 [facility] [address] [facility] [id number] [address] [place] [address] May, Acute low back pain, unspeci fied back pain laterality, with sciatica presence unspecified M54.5 [facility] [address] [facility] [place] [address] May, Encounter for supervision of other carmella l , second trimester Z34.82 and Anxiety F41.9 [facility] [address] [facility] [place] [address] 08 May, 2018 Encounter for supervision of normal firs t in first trimester Z34.01 [facility] [place] [address] [place] [address] Apr, [facility] [id number] [place] [address] Apr, Encounter for supervision of normal firs t in first trimester Z34.01 [facility] [address] [facility] [id number] [address] [place] [address] 28 Mar, 2018 Fever R50.9 ; Influenza A J1 0.1 and heart tones not heard O76 [facility] [id number] [place] [address] 11 Mar, 2018 Encounter for supervision of normal firs t in first trimester Z34.01 [facility] [address] [facility] [place] [id number] Oct, Encounter for immunization Z23 [facility] [address] [id number] [address] [place] [address] Feb, Sore throat J02.9 and Viral pharyngitis J02.9 [facility] [address] [facility] [place] [address] 14 May, 2014 [facility] [id number] [place] [address] May, [facility] [id number] [place] [address] Apr, [facility] [id number] [place] [address] 05 Apr, 2014 [facility] [id number] [place] [address] Nov, [facility] [address] [address] Nov, [facility] [address] [facility] [id number] [place] [address] Oct, [facility] [address] [facility] [id number] [place] [address] Oct, [facility] [address] [facility] [place] [address] Sep, [facility] [address] [facility] [id number] [place] [address] Sep, [facility] [address] [facility] [id number] [place] [address] Sep, [facility] [address] [facility] [id number] [place] [address] Sep, [facility] [address] [facility] [place] [address] Sep, [facility] [address] [facility] [place] [address] Sep, [facility] [address] [facility] [id number] [place] [address] Sep, [facility] [address] [facility] [place] [address] Sep, [facility] [address] [facility] [place] [address] Aug, [facility] [address] [facility] [place] [address] Aug, [facility] [address] [facility] [id number] [place] [address] Aug, [facility] [address] [place] [id number] [place] [address] Jul, [facility] [address] [facility] [place] [address] Jul, [facility] [address] [facility] [place] [address] June, [facility] [address] [facility] [place] [address] June, [facility] [address] [facility] [place] [address] June, [facility] [address] [facility] [place] [address] June, [facility] [address] [facility] [place] [address] Apr, [facility] [address] [facility] [place] [address] Apr, [facility] [address] [id number] [place] [address] Mar, [facility] [address] [facility] [place] [address] Mar, [facility] [id number] [place] [address] Nov, [facility] [id number] [place] [address] Nov, [facility] [address] [facility] [place] [address] Jul, [facility] [id number] [place] [address] June, [facility] [id number] [place] [address] June, [facility] [address] [facility] [place] [address] June, [facility] [address] [facility] [place] [address] June, [facility] [id number] [place] [address] June, [facility] [address] [facility] [place] [address] Mar, [facility] [id number] [place] [address] Mar, IMMUNIZATIONS No Known Immunizations SOCIAL HISTORY Never Assessed REASON FOR VISIT PLAN OF CARE VITAL SIGNS Height 67 in 2013-07-02 Weight 199.7 lbs 2013-07-02 Temperature 97.9 degrees Fahrenheit 2013-07-02 Heart Rate 84 bpm 2013-07-02 Respiratory Rate 18 2013-07-02 Blood pressure systolic 130 mmHg 2013-07-02 Blood pressure diastolic 84 mmHg 2013-07-02 MEDICATIONS Unknown Medications RESULTS No Results PROCEDURES Procedure Date Ordered Result Body Site URINE TEST July 02, 2013 INSTRUCTIONS MEDICATIONS ADMINISTERED No Known Medications MEDICAL (GENERAL) HISTORY Type Description Date Medical History PCOS (Polycystic Ovary Syndrome) Medical History Polycystic ovaries Medical History Hirsutism Surgical History appendectomy 2013 Surgical History rt knee scope 2006 Surgical History wisdom teeth 2006 Hospitalization History surgery 2014 Hospitalization History child
--- OUTSIDE RECORDS SUMMARY | 2019-06-29 10:17 | XMS REPORT ---
Author Author Fatuma PHAN NORI Organization [facility] Address [address] [place] [address] Care Team Providers Care Auto Top Mechanic Name Role Phone SYLVESTERJULIANORI Unavailable PROBLEMS Type Condition ICD9-CM Code GQW35-FG Code Onset Dates Condition S tatus SNOMED Code Problem Anxiety F41.9 Active 62432658 Problem Excessive and frequent menstruation with irregular cycle N92.1 Active 85831074 ALLERGIES No Information ENCOUNTERS Encounter Location Date Diagnosis [id number] [place] [address] Jan, [id number] [place] [address] Dec, Presence of (intrauterine) c ontraceptive device Z97.5 ; Excessive and frequent menstruation with irregular cycle N92.1 and Encounter for IUD removal Z30.[id number] [place] [address] Nov, [facility] [address] [id number] [address] [place] [address] 26 Nov, 2018 Mastitis N61.[address] [id number] [place] [address] 08 Nov, 2018 IUD check up Z30.431 ; Prese nce of (intrauterine) contraceptive device Z97.5 and Excessive and frequent menstruation with irregular cycle N92.1 [facility] [address] [id number] [place] [address] 30 Oct, 2018 care and examinat ion Z39.2 and Family planning Z30.09 [facility] [address] [id number] [place] [address] Oct, [facility] [address] [id number] [place] [address] Oct, [facility] [address] [id number] [place] [address] Oct, [facility] [address] [id number] [place] [address] Sep, [facility] [address] [id number] [address] [place] [address] Sep, Encounter for supervision of other normal , third trimester Z34.83 [facility] [address] [id number] [place] [address] Sep, [facility] [address] [id number] [address] [place] [address] Sep, Encounter for supervision of other normal , third trimester Z34.83 [facility] [address] [id number] [address] [place] [address] Aug, Encounter for supervision of other normal , third trimester Z34.83 [facility] [address] [id number] [place] [address] Aug, [facility] [address] [id number] [place] [address] Aug, [facility] [address] [id number] [address] [place] [address] Aug, Encounter for supervision of other normal , third trimester Z34.83 [facility] [address] [id number] [place] [address] Aug, [facility] [address] [id number] [address] [place] [address] Aug, [facility] [address] [id number] [address] [place] [address] Aug, [facility] [address] [id number] [address] [place] [address] Aug, Encounter for supervision of other normal , third trimester Z34.[address] [id number] [place] [address] Jul, [facility] [address] [facility] [id number] [address] [place] [address] Jul, Encounter for supervision of other normal , third trimester Z34.83 [facility] [address] [facility] [id number] [address] [place] [address] Jul, Encounter for supervision of other normal , third trimester Z34.83 [address] [address] [facility] [id number] [address] [place] [address] Jul, Encounter for supervision of other normal , third trimester Z34.83 and Acute bronchitis, unspecified organism J20.[address] [id number] [address] June, Encounter for supervision of other normal , third trimester Z34.[address] [id number], [place] [address] June, [address] [id number] [address] June, [address] 340[address] [id number], [place] [address] June, [facility] [address] [facility] [id number] [address] [place] [address] June, Encounter for supervision of other normal , second trimester Z34.82 [facility] [address] [facility] [id number] [address] [place] [address] May, Viral upper respiratory trac t infection J06.9 [facility] [address] [facility] [id number] [address] [place] [address] May, Acute low back pain, unspeci fied back pain laterality, with sciatica presence unspecified M54.5 [facility] [address] [facility] [id number] [address] [place] [address] May, Encounter for supervision of other normal , second trimester Z34.82 and Anxiety F41.9 [facility] [address] [facility] [id number] [address] [place] [address] May, Encounter for supervision of normal first in first trimester Z34.[address] 340[address] [id number], [place] [address] Apr, [facility] [address] [facility] [id number] [address] [place] [address] Apr, Encounter for supervision of normal first in first trimester Z34.01 [facility] [address] [id number] [address] [place] [address] 28 Mar, 2018 Fever R50.9 ; Influenza A J1 0.1 and heart tones not heard O76 [facility] [address] [id number] [address] [place] [address] 11 Mar, 2018 Encounter for supervision of normal first in first trimester Z34.01 [facility] [address] [facility] [id number] [place] [id number] Oct, Encounter for immunization Z 23 [facility] [address] [facility] [id number] [address] [place] [address] Feb, Sore throat J02.9 and Viral pharyngitis J02.9 [facility] [address] [facility] [id number] [address] [place] [address] May, [facility] [address] [facility] [id number] [address] [place] [address] May, [facility] [address] [place] [address] Apr, [facility] [address] [facility] [id number] [address] [place] [address] Apr, [facility] [address] [place] [address] Nov, [facility] [address] [id number] [address] [place] [address], [place] [address] Nov, [facility] [address] [id number] [address] [place] [address], [place] [address] Oct, [facility] [address] [id number] [address] [place] [address], [place] [address] Oct, [facility] [address] [id number] [address] [place] [address], [place] [address] Sep, [facility] [address] [id number] [address] [place] [address], [place] [address] Sep, [facility] [address] [id number] [address] [place] [address], [place] [address] Sep, [facility] [address] [id number] [address] [place] [address], [place] [address] Sep, [facility] [address] [id number] [address] [place] [address], [place] [address] Sep, [facility] [address] [id number] [address] [place] [address], [place] [address] Sep, [facility] [address] [id number] [address] [place] [address], [place] [address] Sep, [facility] [address] [id number] [address] [place] [address], [place] [address] Sep, [facility] [address] [id number] [address] [place] [address], [place] [address] Aug, [facility] [address] [id number] [address] [place] [address], [place] [address] Aug, [facility] [address] [id number] [address] [place] [address], [place] [address] Aug, [facility] [address] [id number] [address] [place] [address], [place] [address] Jul, [facility] [address] [id number] [address] [place] [address], [place] [address] Jul, [facility] [address] [id number] [address] [place] [address], [place] [address] June, [facility] [address] [id number] [address] [place] [address], [place] [address] June, [facility] [address] [id number] [address] [place] [address], [place] [address] June, [facility] [address] [id number] [address] [place] [address], [place] [address] June, [facility] [address] [id number] [address] [place] [address], [place] [address] Apr, [facility] [address] [id number] [address] [place] [address], [place] [address] Apr, [facility] [address] [id number] [address] [place] [address], [place] [address] Mar, [facility] [address] [id number] [address] [place] [address], [place] [address] Mar, [facility] [address] [id number] [address] [place] [address], [place] [address] Nov, [facility] [address] [id number] [address] [place] [address], [place] [address] Nov, [facility] [address] [id number] [address] [place] [address], [place] [address] Jul, [facility] [address] [id number] [address] [place] [address], [place] [address] June, [facility] [address] [id number] [address] [place] [address], [place] [address] June, [facility] [address] [id number] [address] [place] [address], [place] [phone] June, [facility] [address] [id number] [address] [place], [place] [address] [address] June, [facility] [place] [address] [facility] [id number] [address] [place] [id number] June, [facility] [place] [address] [facility] [id number] [address] [place] [id number] Mar, [facility] [place] [address] [facility] [id number] [address] [place] [id number] Mar, IMMUNIZATIONS No Known Immunizations SOCIAL HISTORY Never Assessed REASON FOR VISIT PLAN OF CARE VITAL SIGNS MEDICATIONS Unknown Medications RESULTS No Results PROCEDURES Procedure Date Ordered Result Body Site CARDIOLIPIN ANTIBODY Oct 02, 2013 VENIPUNCT, ROUTINE* Oct 02, 2013 INSTRUCTIONS MEDICATIONS ADMINISTERED No Known Medications MEDICAL (GENERAL) HISTORY Type Description Date Medical History PCOS (Polycystic Ovary Syndrome) Medical History Polycystic ovaries Medical History Hirsutism Surgical History appendectomy 2013 Surgical History rt knee scope 2006 Surgical History wisdom teeth 2006 Hospitalization History surgery 2014 Hospitalization History child
--- OUTSIDE RECORDS SUMMARY | 2019-06-29 10:17 | XMS REPORT ---
Author Author Fatuma Barlow Organization [facility] Address [address] [place] [address] Care Team Providers Care Insurance Job Titles Name Role Phone RENAE Barlow Unavailable PROBLEMS Type Condition ICD9-CM Code GYY32-KP Code Onset Dates Condition S tatus SNOMED Code Problem Anxiety F41.9 Active 35459819 Problem Excessive and frequent menstruation with irregular cycle N92.1 Active 07724411 ALLERGIES No Information ENCOUNTERS Encounter Location Date Diagnosis [address] [place] [address] Jan, [address] [address] Dec, Presence of (intrauterine) c ontraceptive device Z97.5 ; Excessive and frequent menstruation with irregular cycle N92.1 and Encounter for IUD removal Z30.432 [address] [address] Nov, [facility] [address] [facility] [id number] [place] [address] 26 Nov, 2018 Mastitis N61.0 [address] [address] 08 Nov, 2018 IUD check up Z30.431 ; Prese nce of (intrauterine) contraceptive device Z97.5 and Excessive and frequent menstruation with irregular cycle N92.1 [facility] [id number] [place] [address] 30 Oct, 2018 care and examination Z39.2 an d Family planning Z30.09 [facility] [id number] [place] [address] Oct, [address] [facility] [place] [address] Oct, [facility] [address] [place] [address] Oct, [facility] [place] [address] [place] [address] Sep, [facility] [address] [id number] [place] [address] Sep, Encounter for supervision of other carmella l , third trimester Z34.[address] [facility] [place] G[place]IA [address] [place] [address] Sep, [facility] [address] [id number] [place] [address] Sep, Encounter for supervision of other carmella l , third trimester Z34.83 [facility] [address] [id number] [place] [address] Aug, Encounter for supervision of other carmella l , third trimester Z34.[address] [facility] [place] GARCIA [address] [place] [address] Aug, [facility] [place] GARCIA [address] [place] [address] Aug, [facility] [address] [id number] [place] [address] Aug, Encounter for supervision of other carmella l , third trimester Z34.[address] [facility] [place] [address] [place] [address] Aug, [facility] [address] [id number] [place] [address] Aug, [facility] [address] [id number] [place] [address] Aug, [facility] [address] [id number] [place] [address] Aug, Encounter for supervision of other carmella l , third trimester Z34.[address] [place] [address] Jul, [facility] [id number] [place] [address] Jul, Encounter for supervision of other carmella l , third trimester Z34.83 [facility] [id number] [place] [address] Jul, Encounter for supervision of other carmella l , third trimester Z34.83 [address] [id number] [place] [address] Jul, Encounter for supervision of other carmella l , third trimester Z34.83 and Acute bronchitis, unspecified organism J20.[address] [place] [address] June, Encounter for supervision of other normal , third trimester Z34.[address] [place] [address] June, [address] [place] [address] June, [address] [place] [address] June, [facility] [address] [id number] [place] [address] June, Encounter for supervision of other carmella l , second trimester Z34.82 [facility] [address] [facility] [id number] [address] [place] [address] May, Viral upper respiratory trac t infection J06.9 [facility] [address] [facility] [id number] [address] [place] [address] May, Acute low back pain, unspeci fied back pain laterality, with sciatica presence unspecified M54.5 [facility] [address] [id number] [place] [address] May, Encounter for supervision of other carmella l , second trimester Z34.82 and Anxiety F41.9 [facility] [address] [id number] [place] [address] 08 May, 2018 Encounter for supervision of normal firs t in first trimester Z34.[address] [facility] [place] [address] [place] [address] Apr, [facility] [id number] [place] [address] Apr, Encounter for supervision of normal firs t in first trimester Z34.01 [facility] [address] [facility] [id number] [address] [place] [address] 28 Mar, 2018 Fever R50.9 ; Influenza A J1 0.1 and heart tones not heard O76 [facility] [id number] [place] [address] 11 Mar, 2018 Encounter for supervision of normal firs t in first trimester Z34.01 [facility] [address] [id number] [place] [id number] Oct, Encounter for immunization Z23 [facility] [address] [id number] [address] [place] [address] Feb, Sore throat J02.9 and Viral pharyngitis J02.9 [facility] [address] [id number] [place] [address] 14 May, 2014 [facility] [id number] [place] [address] May, [facility] [id number] [place] [address] Apr, [facility] [id number] [place] [address] 05 Apr, 2014 [facility] [id number] [place] [address] Nov, [facility] [address] [address] Nov, [facility] [address] [facility] [id number] [place] [address] Oct, [facility] [address] [facility] [id number] [facility] [place] [address] Oct, [facility] [address] [id number] [place] [address] Sep, [facility] [address] [facility] [id number] [facility] [place] [address] Sep, [facility] [address] [facility] [id number] [facility] [place] [address] Sep, [facility] [address] [facility] [id number] [place] [address] Sep, [facility] [address] [id number] [place] [address] Sep, [facility] [address] [id number] [place] [address] Sep, [facility] [address] [facility] [id number] [place] [address] Sep, [facility] [address] [id number] [place] [address] Sep, [facility] [address] [id number] [place] [address] Aug, [facility] [address] [id number] [place] [address] Aug, [facility] [address] [facility] [id number] [place] [address] Aug, [facility] [address] [id number] [place] [address] Jul, [facility] [address] [id number] [place] [address] Jul, [facility] [address] [id number] [place] [address] June, [facility] [address] [id number] [place] [address] June, [facility] [address] [id number] [place] [address] June, [facility] [address] [id number] [place] [address] June, [facility] [address] [id number] [place] [address] Apr, [facility] [address] [id number] [place] [address] Apr, [facility] [address] [id number] [place] [address] Mar, [facility] [address] [id number] [place] [address] Mar, [facility] [id number] [place] [address] Nov, [facility] [id number] [place] [address] Nov, [facility] [address] [id number] [place] [address] Jul, [facility] [id number] [place] [address] June, [facility] [id number] [place] [address] June, [facility] [address] [id number] [place] [address] June, [facility] [address] [id number] [place] [address] June, [facility] [id number] [place] [address] June, [facility] [address] [id number] [place] [address] Mar, [facility] [id number] [place] [address] Mar, IMMUNIZATIONS No Known Immunizations SOCIAL HISTORY [...]
--- OUTSIDE RECORDS SUMMARY | 2019-06-29 10:17 | XMS REPORT ---
Author Author Fatuma Barlow Organization [facility] Address [address] [place] [address] Care Team Providers Care Rn Internship Name Role Phone RENAE Barlow Unavailable PROBLEMS Type Condition ICD9-CM Code JCT47-DV Code Onset Dates Condition S tatus SNOMED Code Problem Anxiety F41.9 Active 89140644 Problem Excessive and frequent menstruation with irregular cycle N92.1 Active 35312322 ALLERGIES No Information ENCOUNTERS Encounter Location Date Diagnosis [address] [place] [address] Jan, [address] [address] Dec, Presence of (intrauterine) c ontraceptive device Z97.5 ; Excessive and frequent menstruation with irregular cycle N92.1 and Encounter for IUD removal Z30.432 [address] [address] [address] [address] Nov, [facility] [address] [facility] [id number] [address] [address] 26 Nov, 2018 Mastitis N61.0 [address] [address] [address] [address] 08 Nov, 2018 IUD check up Z30.431 ; Prese nce of (intrauterine) contraceptive device Z97.5 and Excessive and frequent menstruation with irregular cycle N92.1 [facility] [id number] [place] [address] 30 Oct, 2018 care and examination Z39.2 an d Family planning Z30.09 [facility] [id number] [place] [address] Oct, [address] [facility] [address] Oct, [facility] [address] [place] [address] Oct, [facility] [place] [address] [place] [address] Sep, [facility] [address] [id number] [place] [address] Sep, Encounter for supervision of other carmella l , third trimester Z34.83 [facility] [place] G[place] [address] [place] [address] Sep, [facility] [address] [id number] [place] [address] Sep, Encounter for supervision of other carmella l , third trimester Z34.83 [facility] [address] [id number] [place] [address] Aug, Encounter for supervision of other carmella l , third trimester Z34.83 [facility] [place] G[place] [address] [place] [address] Aug, [facility] [place] G[place] [address] [place] [address] Aug, [facility] [address] [id number] [place] [address] Aug, Encounter for supervision of other carmella l , third trimester Z34.83 [facility] [place] [address] [place] [address] Aug, [facility] [address] [id number] [place] [address] Aug, [facility] [address] [id number] [place] [address] Aug, [facility] [address] [id number] [place] [address] Aug, Encounter for supervision of other carmella l , third trimester Z34.[address] [place] [address] Jul, [facility] [id number] [place] [address] Jul, Encounter for supervision of other carmella l , third trimester Z34.83 [facility] [id number] [place] [address] Jul, Encounter for supervision of other carmella l , third trimester Z34.83 [address] [id number] [place] [address] Jul, Encounter for supervision of other carmella l , third trimester Z34.83 and Acute bronchitis, unspecified organism J20.[address] [place] [address] June, Encounter for supervision of other normal , third trimester Z34.[address] [place] [address] June, [address] [place] [address] June, [address] [place] [address] June, [facility] [address] [id number] [place] [address] June, Encounter for supervision of other carmella l , second trimester Z34.82 [facility] [address] [facility] [id number] [address] [place] [address] May, Viral upper respiratory trac t infection J06.9 [facility] [address] [facility] [id number] [address] [place] [address] May, Acute low back pain, unspeci fied back pain laterality, with sciatica presence unspecified M54.5 [facility] [address] [id number] [place] [address] May, Encounter for supervision of other carmella l , second trimester Z34.82 and Anxiety F41.9 [facility] [address] [id number] [place] [address] 08 May, 2018 Encounter for supervision of normal firs t in first trimester Z34.01 [facility] [place] [address] [place] [address] Apr, [facility] [id number] [place] [address] Apr, Encounter for supervision of normal firs t in first trimester Z34.01 [facility] [address] [facility] [id number] [address] [place] [address] 28 Mar, 2018 Fever R50.9 ; Influenza A J1 0.1 and heart tones not heard O76 [facility] [id number] [place] [address] 11 Mar, 2018 Encounter for supervision of normal firs t in first trimester Z34.01 [facility] [address] [id number] [place] [id number] Oct, Encounter for immunization Z23 [facility] [address] [id number] [address] [place] [address] Feb, Sore throat J02.9 and Viral pharyngitis J02.9 [facility] [address] [id number] [place] [address] 14 May, 2014 [facility] [id number] [place] [address] May, [facility] [id number] [place] [address] Apr, [facility] [id number] [place] [address] 05 Apr, 2014 [facility] [id number] [place] [address] Nov, [facility] [address] [address] Nov, [facility] [address] [facility] [id number] [place] [address] Oct, [facility] [address] [facility] [id number] [facility] [address] Oct, [facility] [address] [id number] [place] [address] Sep, [facility] [address] [facility] [id number] [place] [address] Sep, [facility] [address] [facility] [id number] [place] [address] Sep, [facility] [address] [facility] [id number] [place] [address] Sep, [facility] [address] [id number] [place] [address] Sep, [facility] [address] [id number] [place] [address] Sep, [facility] [address] [facility] [id number] [place] [address] Sep, [facility] [address] [id number] [place] [address] Sep, [facility] [address] [id number] [place] [address] Aug, [facility] [address] [id number] [place] [address] Aug, [facility] [address] [facility] [id number] [place] [address] Aug, [facility] [address] [id number] [place] [address] Jul, [facility] [address] [id number] [place] [address] Jul, [facility] [address] [id number] [place] [address] June, [facility] [address] [id number] [place] [address] June, [facility] [address] [id number] [place] [address] June, [facility] [address] [id number] [place] [address] June, [facility] [address] [id number] [place] [address] Apr, [facility] [address] [id number] [place] [address] Apr, [facility] [address] [id number] [place] [address] Mar, [facility] [address] [id number] [place] [address] Mar, [facility] [id number] [place] [address] Nov, [facility] [id number] [place] [address] Nov, [facility] [address] [id number] [place] [address] Jul, [facility] [id number] [place] [address] June, [facility] [id number] [place] [address] June, [facility] [address] [id number] [place] [address] June, [facility] [address] [id number] [place] [address] June, [facility] [id number] [place] [address] June, [facility] [address] [id number] [place] [address] Mar, [facility] [id number] [place] [address] Mar, IMMUNIZATIONS No Known Immunizations SOCIAL HISTORY Never Assessed REASON FOR VISIT PLAN OF CARE VITAL SIGNS Height 67 in 2013-04-03 Weight 196.4 lbs 2013-04-03 Temperature 97.8 degrees Fahrenheit 2013-04-03 Heart Rate 96 bpm 2013-04-03 Respiratory Rate 20 2013-04-03 Blood pressure systolic 130 mmHg 2013-04-03 Blood pressure diastolic 98 mmHg 2013-04-03 MEDICATIONS Unknown Medications RESULTS No Results PROCEDURES Procedure Date Ordered Result Body Site COMPLETE CBC W/AUTO DIFF WBC Apr 03, 2013 COMPREHEN METABOLIC PANEL Apr 03, 2013 VENIPUNCT, ROUTINE* Apr 03, 2013 INSTRUCTIONS MEDICATIONS ADMINISTERED No Known Medications MEDICAL (GENERAL) HISTORY Type Description Date Medical History PCOS (Polycystic Ovary Syndrome) Medical History Polycystic ovaries Medical History Hirsutism Surgical History appendectomy 2013 Surgical History rt knee scope 2006 Surgical History wisdom teeth 2006 Hospitalization History surgery 2013 Hospitalization History child
--- OUTSIDE RECORDS SUMMARY | 2019-06-29 10:17 | XMS REPORT ---
Author Author Fatuma PHAN Organization [facility] [place] Address [address] [place] [address] Care Team Providers Care Box Maker Name Role Phone SYLVESTERJULIANORI Unavailable PROBLEMS Type Condition ICD9-CM Code [id number] Code Onset Dates Condition S tatus SNOMED Code Problem Anxiety F41.9 Active 65004169 Problem Excessive and frequent menstruation with irregular cycle N92.1 Active 23297409 ALLERGIES No Information ENCOUNTERS Encounter Location Date Diagnosis [id number] [place] [address] Jan, [id number] [place] [address] Dec, Presence of (intrauterine) c ontraceptive device Z97.5 ; Excessive and frequent menstruation with irregular cycle N92.1 and Encounter for IUD removal Z30.[id number] [place] [address] Nov, [facility] [address] [id number] [address] [place] [address] 26 Nov, 2018 Mastitis N61.[id number] [place] [address] 08 Nov, 2018 IUD check up Z30.431 ; Prese nce of (intrauterine) contraceptive device Z97.5 and Excessive and frequent menstruation with irregular cycle N92.1 [facility] [place] [address] [id number] [address] [place] [address] 30 Oct, 2018 care and examinat ion Z39.2 and Family planning Z30.09 [facility] [place] [address] [id number] [address] [place] [address] Oct, [facility] [place] [address] [id number] [place] [address] Oct, [facility] [address] [id number] [place] [address] Oct, [facility] [address] [id number] [place] [address] Sep, [facility] [place] [address] [id number] [address] [place] [address] Sep, Encounter for supervision of other normal , third trimester Z34.83 [facility] [address] 340B [id number] [place] [address] Sep, [facility] [place] [address] [id number] [address] [place] [address] Sep, Encounter for supervision of other normal , third trimester Z34.83 [facility] [place] [address] [id number] [address] [place] [address] Aug, Encounter for supervision of other normal , third trimester Z34.83 [facility] [address] 340B [id number] [place] [address] Aug, [facility] [address] [id number] [place] [address] Aug, [facility] [place] [address] [id number] [address] [place] [address] Aug, Encounter for supervision of other normal , third trimester Z34.83 [facility] [address] [id number] [place] [address] Aug, [facility] [place] [address] [id number] [address] [place] [address] Aug, [facility] [place] [address] [id number] [address] [place] [address] Aug, [facility] [place] [address] [id number] [address] [place] [address] Aug, Encounter for supervision of other normal , third trimester Z34.[address] 340B [id number] [place] [address] Jul, [facility] [place] [address] [facility] [id number] [address] [place] [address] Jul, Encounter for supervision of other normal , third trimester Z34.83 [facility] [place] [address] [facility] [id number] [address] [place] [address] Jul, Encounter for supervision of other normal , third trimester Z34.83 [address] [facility] [id number] [address] [place] [address] Jul, Encounter for supervision of other normal , third trimester Z34.83 and Acute bronchitis, unspecified organism J20.[address] 340B [id number] [address] June, Encounter for supervision of other normal , third trimester Z34.[address] 340B [id number], [place] [address] June, [address] 340B [id number][place] [address] June, [address] 340B [id number][place] [address] June, [facility] [place] [address] [facility] [id number] [address] [place] [address] June, Encounter for supervision of other normal , second trimester Z34.82 [facility] [address] [facility] [id number] [address] [place] [address] May, Viral upper respiratory trac t infection J06.9 [facility] [address] [facility] [id number] [address] [place] [address] May, Acute low back pain, unspeci fied back pain laterality, with sciatica presence unspecified M54.5 [facility] [place] [address] [facility] [id number] [address] [place] [address] May, Encounter for supervision of other normal , second trimester Z34.82 and Anxiety F41.9 [facility] [place] [address] [facility] [id number] [address] [place] [address] May, Encounter for supervision of normal first in first trimester Z34.[address] 340B [id number], [place] [address] Apr, [facility] [place] [address] [facility] [id number] [address] [place] [address] Apr, Encounter for supervision of normal first in first trimester Z34.01 [facility] [address] [id number] [address] [place] [address] 28 Mar, 2018 Fever R50.9 ; Influenza A J1 0.1 and heart tones not heard O76 [facility] [place] [address] [id number] [address] [place] [address] 11 Mar, 2018 Encounter for supervision of normal first in first trimester Z34.01 [facility] [address] [facility] [id number] [place] [id number] Oct, Encounter for immunization Z 23 [facility] [address] [facility] [id number] [address] [place] [address] Feb, Sore throat J02.9 and Viral pharyngitis J02.9 [facility] [place] [address] [facility] [id number] [address] [place] [address] May, [facility] [place] [address] [facility] [id number] [address] [place] [address] May, [facility] [place] [address] [place] [address] Apr, [facility] [place] [address] [facility] [id number] [address] [place] [address] Apr, [facility] [place] [address] [place] [address] Nov, [facility] [address] [id number] [address] [place] [address], [place] [address] Nov, [facility] [address] [id number] [address] [place] [address], [place] [address] Oct, [facility] [address] [id number] [address] [place] [address], [place] [address] Oct, [facility] [address] [id number] [address] [place] [address], [place] [address] Sep, [facility] [address] [id number] [address] [place] [address], [place] [address] Sep, [facility] [address] [id number] [address] [place] [address], [place] [address] Sep, [facility] [address] [id number] [address] [place] [address], [place] [address] Sep, [facility] [address] [id number] [address] [place] [address], [place] [address] Sep, [facility] [address] [id number] [address] [place] [address], [place] [address] Sep, [facility] [address] [id number] [address] [place] [address], [place] [address] Sep, [facility] [address] [id number] [address] [place] [address], [place] [address] Sep, [facility] [address] [id number] [address] [place] [address], [place] [address] Aug, [facility] [address] [id number] [address] [place] [address], [place] [address] Aug, [facility] [address] [id number] [address] [place] [address], [place] [address] Aug, [facility] [address] [id number] [address] [place] [address], [place] [address] Jul, [facility] [address] [id number] [address] [place] [address], [place] [address] Jul, [facility] [address] [id number] [address] [place] [address], [place] [address] June, [facility] [address] [id number] [address] [place] [address], [place] [address] June, [facility] [address] [id number] [address] [place] [address], [place] [address] June, [facility] [address] [id number] [address] [place] [address], [place] [address] June, [facility] [address] [id number] [address] [place] [address], [place] [address] Apr, [facility] [address] [id number] [address] [place] [address], [place] [address] Apr, [facility] [address] [id number] [address] [place] [address], [place] [address] Mar, [facility] [address] [id number] [address] [place] [address], [place] [address] Mar, [facility] [address] [id number] [address] [place] [address], [place] [address] Nov, [facility] [address] [id number] [address] [place] [address], [place] [address] Nov, [facility] [address] [id number] [address] [place] [address], [place] [address] Jul, [facility] [address] [id number] [address] [place] [address], [place] [address] June, [facility] [address] [id number] [address] [place] [address], [place] [address] June, [facility] [address] [id number] [address] [place] [address], [place] [address] June, [facility] [address] [id number] [address] [place] [address], [place] [address] June, [facility] [place] [address] [facility] [id number] [address] [place] [address] June, [facility] [place] [address] [facility] [id number] [address] [place] [address] Mar, [facility] [place] [address] [facility] [id number] [address] [place] [address] Mar, IMMUNIZATIONS No Known Immunizations SOCIAL HISTORY [...] knee scope 2006 Surgical History wisdom teeth 2007 Hospitalization History surgery 2013 Hospitalization History child
--- OUTSIDE RECORDS SUMMARY | 2019-06-29 10:18 | XMS REPORT ---
Author Author Fatuma PHAN Organization [facility] Address [address] [place] [address] Care Team Providers Care Artist Mannequin Coloring Name Role Phone SYLVESTERJULIANORI Unavailable PROBLEMS Type Condition ICD9-CM Code BCU61-HO Code Onset Dates Condition S tatus SNOMED Code Problem Anxiety F41.9 Active 86469559 Problem Excessive and frequent menstruation with irregular cycle N92.1 Active 72714796 ALLERGIES No Information ENCOUNTERS Encounter Location Date Diagnosis [address] [place] [address] Jan, [address] [address] Dec, Presence of (intrauterine) c ontraceptive device Z97.5 ; Excessive and frequent menstruation with irregular cycle N92.1 and Encounter for IUD removal Z30.[address] [address] Nov, [facility] [address] [facility] [id number] [place] [address] 26 Nov, 2018 Mastitis N61.0 [address] [address] [place] [address] 08 Nov, 2018 IUD check up Z30.431 ; Prese nce of (intrauterine) contraceptive device Z97.5 and Excessive and frequent menstruation with irregular cycle N92.1 [facility] [address] [id number] [place] [address] 30 Oct, 2018 care and examination Z39.2 an d Family planning Z30.09 [facility] [address] [id number] [place] [address] Oct, [address] [place] [address] Oct, [facility] [place] [address] [place] [address] Oct, [facility] [address] [place] [address] Sep, [facility] [address] [facility] [id number] [place] [address] Sep, Encounter for supervision of other carmella l , third trimester Z34.83 [facility] [place] [address] [place] [address] Sep, [facility] [address] [facility] [id number] [place] [address] Sep, Encounter for supervision of other carmella l , third trimester Z34.83 [facility] [address] [facility] [id number] [place] [address] Aug, Encounter for supervision of other carmella l , third trimester Z34.83 [facility] [place] [address] [place] [address] Aug, [facility] [place] [address] [place] [address] Aug, [facility] [address] [facility] [id number] [place] [address] Aug, Encounter for supervision of other carmella l , third trimester Z34.83 [facility] [place] [address] [facility] [place] [place] [address] Aug, [facility] [address] [facility] [id number] [place] [address] Aug, [facility] [address] [facility] [id number] [place] [address] Aug, [facility] [address] [facility] [id number] [place] [address] Aug, Encounter for supervision of other carmella l , third trimester Z34.[address] [place] [address] Jul, [facility] [address] [facility] [id number] [place] [address] Jul, Encounter for supervision of other carmella l , third trimester Z34.83 [facility] [address] [facility] [id number] [place] [address] Jul, Encounter for supervision of other carmella l , third trimester Z34.83 [address] [facility] [id number] [place] [address] Jul, Encounter for supervision of other carmella l , third trimester Z34.83 and Acute bronchitis, unspecified organism J20.[address] [place] [address] June, Encounter for supervision of other normal , third trimester Z34.[address] [place] [address] June, [address] [place] [address] June, [address] [place] [address] June, [address] [facility] [id number] [place] [address] June, Encounter for supervision of other carmella l , second trimester Z34.[address] [facility] [address] [facility] [id number] [address] [place] [address] May, Viral upper respiratory trac t infection J06.[address] [facility] [address] [facility] [id number] [address] [place] [address] May, Acute low back pain, unspeci fied back pain laterality, with sciatica presence unspecified M54.5 [facility] [address] [facility] [id number] [place] [address] May, Encounter for supervision of other carmella l , second trimester Z34.82 and Anxiety F41.9 [facility] [address] [facility] [id number] [place] [address] 08 May, 2018 Encounter for supervision of normal firs t in first trimester Z34.01 [facility] JO[place] [address] [place] [address] Apr, [facility] [id number] [place] [address] Apr, Encounter for supervision of normal firs t in first trimester Z34.[address] [facility] [address] [facility] [id number] [address] [place] [address] 28 Mar, 2018 Fever R50.9 ; Influenza A J1 0.1 and heart tones not heard O76 [facility] [id number] [place] [address] 11 Mar, 2018 Encounter for supervision of normal firs t in first trimester Z34.01 [facility] [address] [facility] [address] [place] [id number] Oct, Encounter for immunization Z23 [facility] [address] [id number] [address] [place] [address] Feb, Sore throat J02.9 and Viral pharyngitis J02.9 [facility] [id number] [place] [address] 14 May, 2014 [facility] [id number] [place] [address] 13 May, 2014 [facility] [id number] [place] [address] Apr, [facility] [id number] [place] [address] 05 Apr, 2014 [facility] [id number] [place] [address] Nov, [facility] [address] [address] Nov, [facility] [address] [facility] [id number] [place] [address] Oct, [facility] [address] [facility] [id number] [place] [address] Oct, [facility] [address] [facility] [id number] [place] [address] Sep, [facility] [address] [facility] [id number] [place] [address] Sep, [facility] [address] [facility] [id number] [place] [address] Sep, [facility] [address] [facility] [id number] [place] [address] Sep, [facility] [address] [id number] [place] [address] Sep, [facility] [address] [id number] [place] [address] Sep, [facility] [address] [facility] [id number] [place] [address] Sep, [facility] [address] [id number] [place] [address] Sep, [facility] [address] [id number] [place] [address] Aug, [facility] [address] [id number] [place] [address] Aug, [facility] [address] [facility] [id number] [place] [address] Aug, [facility] [address] [facility] [id number] [place] [address] Jul, [facility] [address] [facility] [id number] [place] [address] Jul, [facility] [address] [id number] [place] [address] June, [facility] [address] [id number] [place] [address] June, [facility] [address] [id number] [place] [address] June, [facility] [address] [id number] [place] [address] June, [facility] [address] [id number] [place] [address] Apr, [facility] [address] [id number] [place] [address] Apr, [facility] [address] [id number] [place] [address] Mar, [facility] [address] [id number] [place] [address] Mar, [facility] [id number] [place] [address] Nov, [facility] [id number] [place] [address] Nov, [facility] [address] [id number] [place] [address] Jul, [facility] [id number] [place] [address] June, [facility] [id number] [place] [address] June, [facility] [id number] [place] [address] June, [facility] [address] [id number] [place] [address] June, [facility] [id number] [place] [address] June, [facility] [id number] [place] [address] Mar, [facility] [address] [id number] [place] [address] Mar, IMMUNIZATIONS No Known Immunizations SOCIAL HISTORY Never Assessed REASON FOR VISIT PLAN OF CARE VITAL SIGNS Height 67 in 2013-09-20 Weight 196.19 lbs 2013-09-20 Temperature 97.3 degrees Fahrenheit 2013-09-20 Heart Rate 102 bpm 2013-09-20 Respiratory Rate 20 2013-09-20 Blood pressure systolic 132 mmHg 2013-09-20 Blood pressure diastolic 86 mmHg 2013-09-20 MEDICATIONS Unknown Medications RESULTS No Results PROCEDURES Procedure Date Ordered Result Body Site CARDIOLIPIN ANTIBODY September 20, 2013 ASSAY OF TOTAL TESTOSTERONE September 20, 2013 VENIPUNCT, ROUTINE* September 20, 2013 INSTRUCTIONS MEDICATIONS ADMINISTERED No Known Medications MEDICAL (GENERAL) HISTORY Type Description Date Medical History PCOS (Polycystic Ovary Syndrome) Medical History Polycystic ovaries Medical History Hirsutism Surgical History appendectomy 2013 Surgical History rt knee scope 2006 Surgical History wisdom teeth 2006 Hospitalization History surgery 2014 Hospitalization History child
--- OUTSIDE RECORDS SUMMARY | 2019-06-29 10:18 | XMS REPORT | Continuity of Care Document ---
Author Organization Unknown Address Unknown Phone Unavailable Allergies Active Description Code Type Severity Reaction Onset Reported/Identified Relationship to Patient Clinical Status Yes No Known Drug Allergies [id number] Drug Allergy Unknown N/A 03/31/2018 Yes hydrocodone [id number] Drug Aller gy Unknown N/A 10/16/2018 Medications There is no data. Problems Date Dx Coded Attending Type Code Diagnosis Diagnosed By 04/06/2012 EASTON BREAUX DO 278.00 OBESITY 04/06/2012 EASTON BREAUX DO 626.1 OLIGOMENORRHEA 04/06/2012 EASTON BREAUX DO 704.1 HIRSUTISM 04/06/2012 278.00 OBESITY 04/06/2012 626.1 OLIG OMENORRHEA 04/06/2012 704.1 HIRS UTISM 04/06/2012 278.00 OBESITY 04/06/2012 626.1 OLIG OMENORRHEA 04/06/2012 704.1 HIRS UTISM 04/06/2012 EASTON BREAUX DO 278.00 OBESITY 04/06/2012 EASTON BREAUX DO 626.1 OLIGOMENORRHEA 04/06/2012 EASTON BREAUX DO 704.1 HIRSUTISM 04/06/2012 FANI APRN, RENAE A 278.00 OBESITY 04/06/2012 FANI APRN, RENAE A 62 6.1 OLIGOMENORRHEA 04/06/2012 FANI CESAR, RENAE A 70 4.1 HIRSUTISM 04/06/2012 FANI CESAR, RENAE A 278.00 OBESITY 04/06/2012 FANI APRN, RENAE A 62 6.1 OLIGOMENORRHEA 04/06/2012 FANIYRN GUERRERO, RENAE A 70 4.1 HIRSUTISM 04/06/2012 NORI PHAN MD 278 .00 OBESITY 04/06/2012 NORI PHAN MD 626 .1 OLIGOMENORRHEA 04/06/2012 NORI PHAN MD 704 .1 HIRSUTISM 04/06/2012 NORI PHAN MD 278 .00 OBESITY 04/06/2012 NORI PHAN MD 626 .1 OLIGOMENORRHEA 04/06/2012 NORI PHAN MD 704 .1 HIRSUTISM 04/06/2012 NORI PHAN MD 278 .00 OBESITY 04/06/2012 NORI PHAN MD 626 .1 OLIGOMENORRHEA 04/06/2012 NORI PHAN MD 704 .1 HIRSUTISM 07/10/2012 788.41 URI NARY FREQUENCY 07/10/2012 V76.2 CERV ICAL CANCER SCREENING (PAP SMEAR) 07/10/2012 788.41 URI NARY FREQUENCY 07/10/2012 V76.2 CERV ICAL CANCER SCREENING (PAP SMEAR) 07/10/2012 EASTON BREAUX DO 788.41 URINARY FREQUENCY 07/10/2012 EASTON BREAUX DO V76.2 CERVICAL CANCER SCREENING (PAP SMEAR) 07/10/2012 RENAE MOHR APRN 788.41 URINARY FREQUENCY 07/10/2012 RENAE MOHR APRN V7 6.2 CERVICAL CANCER SCREENING (PAP SMEAR) 07/10/2012 RENAE MOHR APRN 788.41 URINARY FREQUENCY 07/10/2012 RENAE MOHR APRN V7 6.2 CERVICAL CANCER SCREENING (PAP SMEAR) 07/10/2012 NORI PHAN MD N 788 .41 URINARY FREQUENCY 07/10/2012 NORI PHAN MD V76 .2 CERVICAL CANCER SCREENING (PAP SMEAR) 07/10/2012 NORI PHAN MD 788 .41 URINARY FREQUENCY 07/10/2012 NORI PHAN MD V76 .2 CERVICAL CANCER SCREENING (PAP SMEAR) 07/10/2012 NORI PHAN MD 788 .41 URINARY FREQUENCY 07/10/2012 NORI PHAN MD V76 .2 CERVICAL CANCER SCREENING (PAP SMEAR) 08/15/2012 V72.42 PRE GNANCY TEST POSITIVE RESULT 08/15/2012 EASTON BREAUX DO V72.42 TEST POSITIVE RESULT 08/15/2012 RENAE MOHR APRN V72.42 TEST POSITIVE RESULT 08/15/2012 RENAE MOHR APRN A V72.42 TEST POSITIVE RESULT 08/15/2012 NORI PHAN MD V72 .42 TEST POSITIVE RESULT 08/15/2012 NORI PHAN MD V72 .42 TEST POSITIVE RESULT 08/15/2012 NORI PHAN MD V72 .42 TEST POSITIVE RESULT 12/13/2012 BREAUX DO EASTON K 256.4 POLYCYSTIC OVARIES 12/13/2012 FANIRENAE Macias APRN A 25 6.4 POLYCYSTIC OVARIES 12/13/2012 ROSARIO MOHR APRNIDI A 25 6.4 POLYCYSTIC OVARIES 12/13/2012 NORI PHAN MD N 256 .4 POLYCYSTIC OVARIES 12/13/2012 NORI PHAN MD 256 .4 POLYCYSTIC OVARIES 12/13/2012 NORI PHAN MD 256 .4 POLYCYSTIC OVARIES 04/03/2013 RENAE MOHR APRN A V26.41 FERTILITY COUNSELING 04/03/2013 FANIRENAE Macias APRN A V26.41 FERTILITY COUNSELING 04/03/2013 NORI PHAN MD V26 .41 FERTILITY COUNSELING 04/03/2013 NORI PHAN MD V26 .41 FERTILITY COUNSELING 04/03/2013 NORI PHAN MD V26 .41 FERTILITY COUNSELING 07/02/2013 RENAE MOHR APRN A 62 6.0 AMENORRHEA 07/02/2013 NORI PHAN MD N 626 .0 AMENORRHEA 07/02/2013 NORI PHAN MD 626 .0 AMENORRHEA 07/02/2013 NORI PHAN MD 626 .0 AMENORRHEA 09/20/2013 NORI PHAN MD 629 .81 RECURRENT LOSS WITHOUT CURRENT 09/20/2013 NORI PHAN MD 629 .81 RECURRENT LOSS WITHOUT CURRENT 09/20/2013 NORI PHAN MD 629 .81 RECURRENT LOSS WITHOUT CURRENT 10/01/2016 RHINA ORDONEZ DO E Ot O09.8 99 SUPERVISION OF OTHER HIGH RISK PREGNANCI 11/03/2016 RHINA ORDONEZ DO Ot O09.8 99 SUPERVISION OF OTHER HIGH RISK PREGNANCI 04/27/2017 SEALS DO, RHINA E Ot O09.8 99 SUPERVISION OF OTHER HIGH RISK PREGNANCI 08/04/2017 JEANIECharan FANG RHINA E Ot O09.8 99 SUPERVISION OF OTHER HIGH RISK PREGNANCI 08/18/2017 JEAN JULIENP Ot Z34.90 ENCNTR FOR SUPRVSN OF NORMAL , 03/31/2018 YONI ORDONEZ DORY E Ot O09.8 99 SUPERVISION OF OTHER HIGH RISK PREGNANCI 03/31/2018 JEAN JULIENP Ot Z34.90 ENCNTR FOR SUPRVSN OF NORMAL , 03/31/2018 JOSÉ LUIS RHINA E Ot N91.2 AMENORRHEA, UNSPECIFIED 03/31/2018 KAY CARDOZA DO Ot D72.82 3 LEUKEMOID REACTION 03/31/2018 KAY CARDOZA DO Ot E28.2 POLYCYSTIC OVARIAN SYNDROME 03/31/2018 KAY CARDOZA DO Ot G40.90 9 EPILEPSY, UNSP, NOT INTRACTABLE, WITHOUT 03/31/2018 KAY CARDOZA DO Ot I30.9 ACUTE PERICARDITIS, UNSPECIFIED 03/31/2018 KAY CARDOZA DO Ot J06.9 ACUTE UPPER RESPIRATORY INFECTION, UNSPE 03/31/2018 KAY CARDOZA DO Ot O26.21 PREG CARE FOR PATIENT W RECURRENT PREG L 03/31/2018 KAY CARDOZA DO Ot O99.11 1 OTH DIS OF BLD/BLD-FORM ORG/IMMUN MECHNS 03/31/2018 KAY CARDOZA DO Ot O99.28 1 ENDO, NUTRITIONAL AND METAB DISEASES COM 03/31/2018 KAY CARDOZA DO Ot O99.35 1 DISEASES OF THE NERVOUS SYS COMP PREGNAN 03/31/2018 KAY CARDOZA DO Ot O99.41 1 DISEASES OF THE CIRC SYS COMP , 03/31/2018 KAY CARDOZA DO Ot O99.51 1 DISEASES OF THE RESP SYS COMP , 03/31/2018 KAY ACRDOZA DO Ot R00.0 TACHYCARDIA, UNSPECIFIED 03/31/2018 KAY CARDOZA DO Ot R07.2 PRECORDIAL PAIN 03/31/2018 KAY CARDOZA DO Ot Z3A.12 12 WEEKS GESTATION OF 03/31/2018 KAY CARDOZA DO Ot Z79.82 [facility] (CURRENT) USE OF ASPIRIN 04/05/2018 SEALS DO, RHINA E Ot N91.2 AMENORRHEA, UNSPECIFIED 06/26/2018 SEALS DO, RHINA E Ot O09.8 99 SUPERVISION OF OTHER HIGH RISK PREGNANCI 06/26/2018 JEAN JULIEN Ot Z34.90 ENCNTR FOR SUPRVSN OF NORMAL , 06/26/2018 SEALS DO, RHINA E Ot N91.2 AMENORRHEA, UNSPECIFIED 06/26/2018 SEALS DO, RHINA E Ot N91.2 AMENORRHEA, UNSPECIFIED 10/12/2018 SEALS DO, RHINA E Ot O62.9 ABNORMALITY OF FORCES OF LABOR, UNSPECIF 10/12/2018 SEALS DO, RHINA E Ot Z3A.3 7 37 WEEKS GESTATION OF 10/17/2018 SEALS DO, RHINA E Ot O70.0 FIRST DEGREE PERINEAL LACERATION DURING 10/17/2018 SEALS DO, RHINA E Ot Z37.0 SINGLE LIVE 10/17/2018 SEALS DO, RHINA E Ot Z3A.3 9 39 WEEKS GESTATION OF 10/17/2018 SEALS DO, RHINA E Ot Z88.5 ALLERGY STATUS TO NARCOTIC AGENT STATUS 11/06/2018 MARIANGEL GANN Ot G40.909 EPILEPSY, UNSP, NOT INTRACTABLE, WITHOUT 11/06/2018 DORIAN GANNIS Ot G43.909 MIGRAINE, UNSP, NOT INTRACTABLE, WITHOUT 11/06/2018 MARIANGEL GANN Ot N20.0 CALCULUS OF KIDNEY 11/06/2018 MARIANGEL GANN Ot R10.9 UNSPECIFIED ABDOMINAL PAIN 11/06/2018 MARIANGEL GANN Ot Z87.442 PERSONAL HISTORY OF URINARY CALCULI 11/06/2018 MARIANGEL GANN Ot Z88.5 ALLERGY STATUS TO NARCOTIC AGENT STATUS 11/06/2018 DORIAN GANNIS Ot Z90.49 ACQUIRED ABSENCE OF OTHER SPECIFIED PART Procedures Code Description [place] [address] PAP SMEAR 07/10/2012 Q0091 PAP SMEAR OBTAIN SMEAR 07/10/2012 76984 UA W / CULTURE IF INDICATED 07/10/2012 09825 URIN E TEST (IN- HOUSE) 08/15/2012 28338 ROUT INE VENIPUNCTURE 12/13/2012 63239 URIN E TEST (IN- HOUSE) 12/13/2012 37630 TSH 12/13/2012 68269 ROUT INE VENIPUNCTURE 04/03/2013 88515 CBC 04/03/2013 [id number] GF R CALC (RESULT ONLY) 04/03/2013 30673 CMP 04/03/2013 79435 PREG AMY TEST, URINE (IN- HOUSE) 07/02/2013 17530 ROUT INE VENIPUNCTURE 09/20/2013 26719 TEST OSTERONE TOTAL-WOMEN & CHILDREN 09/20/2013 05216 CARD IOLIPIN ANTIBODY 09/20/2013 LUPUS LUPU S ANTICOAGULANT ANALYZER 09/20/2013 33217 ROUT INE VENIPUNCTURE 10/02/2013 23689 CARD IOLIPIN ANTIBODY 10/02/2013 [id number] DE LIVERY OF PRODUCTS OF CONCEPTION, EXTE 10/16/2018 [id number] IN TRODUCTION OF OTH HORMONE INTO PERIPH 10/16/2018 Results Test Result Range Capillary blood glucose measurement by g lucometer (mass/volume) - 08/18/16 09:09 Capillary blood glucose measurement by glucometer (mas s/volume) 84 mg/dL 70-110 Serum or plasma glucose measurement 3 ho urs post challenge (mass/volume) - 08/18/16 09:16 Serum or plasma glucose measurement 3 ho urs post challenge (mass/volume) NRG Serum or plasma choriogonadotropin measu rement (units/volume) - 02/23/18 09:03 Serum or plasma choriogonadotropin measurement (units/ volume) 459 m[iU]/mL <5 Complete blood count (CBC) with automate d white blood cell (WBC) differential - 03/31/18 03:04 Blood leukocytes automated count (number/volume) 14.3 10*3/uL 4.3-11.0 Blood erythrocytes automated count (number/volume) 4.30 10*6/uL 4.35-5.85 Venous blood hemoglobin measurement (mass/volume) 13.4 g/dL 11.5-16.0 Blood hematocrit (volume fraction) 38 % 35-52 Automated erythrocyte mean corpuscular volume 89 [ foz_us] 80-99 Automated erythrocyte mean corpuscular h emoglobin (mass per erythrocyte) 31 pg 25-34 Automated erythrocyte mean corpuscular h emoglobin concentration measurement (mass/volume) 35 g/dL 32-36 Automated erythrocyte distribution width ratio 12. 9 % 10.0- 14.5 Automated blood platelet count (count/volume) 161 10*3/uL 130-400 Automated blood platelet mean volume measurement 10.6 [foz_us] 7.4-10.4 Automated blood neutrophils/100 leukocytes 94 % 42-75 Automated blood lymphocytes/100 leukocytes 3 % 12-44 Blood monocytes/100 leukocytes 4 % 0-12 Automated blood eosinophils/100 leukocytes 0 % 0-10 Automated blood basophils/100 leukocytes 0 % 0-10 Blood neutrophils automated count (number/volume) 13.4 10*3 1.8-7.8 Blood lymphocytes automated count (number/volume) 0.4 10*3 1.0-4.0 Blood monocytes automated count (number/volume) 0. 5 10*3 0.0-1.0 Automated eosinophil count 0.0 10*3/uL 0 .0-0.3 Automated blood basophil count (count/volume) 0.0 10*3/uL 0.0-0.1 Blood lactic acid measurement (moles/vol ume) - 03/31/18 03:04 Blood lactic acid measurement (moles/volume) 2.28 mmol/L 0.50-2.00 Comprehensive metabolic panel - 03/31/18 03:04 Serum or plasma sodium measurement (moles/volume) 133 mmol/L 135-145 Serum or plasma potassium measurement (moles/volume) 3.7 mmol/L 3.6-5.0 Serum or plasma chloride measurement (moles/volume) 102 mmol/L 98-107 Carbon dioxide 19 mmol/L 21-32 Serum or plasma anion gap determination (moles/volume) 12 mmol/L 5-14 Serum or plasma urea nitrogen measurement (mass/volume ) 9 mg/dL 7-18 Serum or plasma creatinine measurement (mass/volume) 0.72 mg/dL 0.60-1.30 Serum or plasma urea nitrogen/creatinine mass ratio 13 NRG Serum or plasma creatinine measurement w ith calculation of estimated glomerular filtration rate > NRG Serum or plasma glucose measurement (mass/volume) 110 mg/dL 70-105 Serum or plasma calcium measurement (mass/volume) 9.1 mg/dL 8.5-10.1 Serum or plasma total bilirubin measurement (mass/volu me) 0.7 mg/dL 0.1-1.0 Serum or plasma alkaline phosphatase jose miguel surement (enzymatic activity/volume) 74 U/L 40-136 Serum or plasma aspartate aminotransfera se measurement (enzymatic activity/volume) 25 U/L 5-34 Serum or plasma alanine aminotransferase measurement (enzymatic activity/volume) 18 U/L 0-55 Serum or plasma protein measurement (mass/volume) 7.3 g/dL 6.4-8.2 Serum or plasma albumin measurement (mass/volume) 3.8 g/dL 3.2-4.5 CALCIUM CORRECTED 9.3 mg/dL 8.5-10.1 Magnesium - 03/31/18 03:04 Magnesium 1.6 mg/dL 1.8-2.4 Lipase - 03/31/18 03:04 Lipase 43 U/L 8-78 PT panel in platelet poor plasma by coag ulation assay - 03/31/18 03:04 Prothrombin time (PT) in platelet poor plasma by coagu lation assay 13.0 s 12.2-14.7 INR in platelet poor plasma or blood by coagulation as say 1.0 0.8-1.4 Activated partial thromboplastin time (a PTT) in platelet poor plasma bycoagulation assay - 03/31/18 03:04 Activated partial thromboplastin time (a PTT) in platelet poor plasma bycoagulation assay 25 s 24-35 Serum or plasma troponin i.cardiac measu rement (mass/volume) - 03/31/18 03:04 Serum or plasma troponin i.cardiac measurement (mass/v olume) < ng/mL <0.028 Fibrin D-dimer FEU measurement in platel et poor plasma (mass/volume) - 03/31/18 03:04 Fibrin D-dimer FEU measurement in platelet poor plasma (mass/volume) 2.81 ug/mL 0.00-0.49 Blood manual differential performed dete ction - 03/31/18 03:04 Blood monocytes/100 leukocytes 2 % NRG Manual blood segmented neutrophils/100 leukocytes 72 % NRG Blood band neutrophils/100 leukocytes 17 % NRG Manual blood lymphocytes/100 leukocytes 4 % NRG Manual eosinophils/100 leukocytes in nose 4 % NRG Manual blood basophils/100 leukocytes 1 % NRG Blood erythrocyte morphology finding identification NORMAL NRG Serum or plasma C reactive protein measu rement (mass/volume) - 03/31/18 03:04 Serum or plasma C reactive protein measurement (mass/v olume) 1.40 mg/dL 0.00-0.50 Serum or plasma lithium measurement (mol es/volume) - 03/31/18 03:04 BNP level 28.0 pg/mL <100.0 Influenza virus A and B antigen detectio n - 03/31/18 03:05 FLU RESULT NEGATIVE FOR INFLUENZA A AND B ANTIGENS BY IA NRG Bacterial blood culture - 03/31/18 03:10 Bacterial blood culture NG NRG Complete urinalysis with reflex to cultu re - 03/31/18 03:20 Urine color determination YELLOW NRG Urine clarity determination CLEAR NR G Urine pH measurement by test strip 7 5-9 Specific gravity of urine by test strip 1.010 1.016-1.022 Urine protein assay by test strip, semi-quantitative NEGATIVE NEGATIVE Urine glucose detection by automated test strip NE GATIVE NEGATIVE Erythrocytes detection in urine sediment by light micr oscopy NEGATIVE NEGATIVE Urine ketones detection by automated test strip 1+ NEGATIVE Urine nitrite detection by test strip NEGATIVE NEGATIVE Urine total bilirubin detection by test strip NEGA TIVE NEGATIVE Urine urobilinogen measurement by automated test strip (mass/volume) NORMAL NORMAL Urine leukocyte esterase detection by dipstick 1+ NEGATIVE Automated urine sediment erythrocyte cou nt by microscopy (number/high power field) NONE NRG Automated urine sediment leukocyte count by microscopy (number/high power field) RARE NRG Bacteria detection in urine sediment by light microsco py TRACE NRG Squamous epithelial cells detection in u rine sediment by light microscopy 2-5 NRG Crystals detection in urine sediment by light microsco py NONE NRG Casts detection in urine sediment by light microscopy NONE NRG Mucus detection in urine sediment by light microscopy NEGATIVE NRG Complete urinalysis with reflex to culture CULTURE PENDING NRG Urine drug screening test - 03/31/18 03: 20 Urine phencyclidine detection by screening method NEGATIVE NEGATIVE Urine benzodiazepines detection by screening method NEGATIVE NEGATIVE Urine cocaine detection NEGATIVE NEGATI VE Urine amphetamines detection by screening method N EGATIVE NEGATIVE Urine methamphetamine detection by screening method NEGATIVE NEGATIVE Urine cannabinoids detection by screening method N EGATIVE NEGATIVE Urine opiates detection by screening method NEGATI VE NEGATIVE Urine barbiturates detection NEGATIVE N EGATIVE Screening urine tricyclic antidepressants detection NEGATIVE NEGATIVE Urine methadone detection by screening method NEGA TIVE NEGATIVE Urine oxycodone detection NEGATIVE NEGA TIVE Urine propoxyphene detection NEGATIVE N EGATIVE Bacterial urine culture - 03/31/18 03:20 Bacterial urine culture NG NRG Bacterial blood culture - 03/31/18 03:32 Bacterial blood culture NG NRG Erythrocyte sedimentation rate by magalie gren method - 03/31/18 04:15 Erythrocyte sedimentation rate by westergren method 12 mm 0- 20 Serum or plasma lactate measurement (mol es/volume) - 03/31/18 05:27 Serum or plasma lactate measurement (moles/volume) 1.48 mmol/L 0.50-2.00 Serum or plasma troponin i.cardiac measu rement (mass/volume) - 03/31/18 09:45 Serum or plasma troponin i.cardiac measurement (mass/v olume) < ng/mL <0.028 THYROID STIMULATING HORMONE - 03/31/18 0 9:45 THYROID STIMULATING HORMONE 0.99 u[iU]/mL 0.35-4.94 Serum or plasma choriogonadotropin measu rement (units/volume) - 04/04/18 13:30 Serum or plasma choriogonadotropin measurement (units/ volume) 31107 m[iU]/mL <5 GLUCOSE KASHIF 1 HOUR - 07/31/18 10:02 GLUCOSE, POSTPRANDIAL/ 1 HOUR 123 mg/dL See Note: CBC - 07/31/18 10:02 WHITE BLOOD CELL COUNT 10.9 Thousand/uL 3.8-10.8 RED BLOOD CELL COUNT 4.20 Million/uL 3.8 0-5.10 HEMOGLOBIN 13.0 g/dL 11.7-15.5 HEMATOCRIT 38.5 % 35.0-45.0 MCV 91.7 fL 80.0-100.0 MCH 31.0 pg 27.0-33.0 MCHC 33.8 g/dL 32.0-36.0 RDW 12.2 % 11.0-15.0 PLATELET COUNT 164 Thousand/uL 140-400 MPV 11.7 fL 7.5-12.5 ABSOLUTE NEUTROPHILS 9123 cells/uL 1500- 7800 ABSOLUTE LYMPHOCYTES 1166 cells/uL 850-3 900 ABSOLUTE MONOCYTES 512 cells/uL 200-950 ABSOLUTE EOSINOPHILS 55 cells/uL 15-500 ABSOLUTE BASOPHILS 44 cells/uL 0-200 NEUTROPHILS 83.7 % NRG LYMPHOCYTES 10.7 % NRG MONOCYTES 4.7 % NRG EOSINOPHILS 0.5 % NRG BASOPHILS 0.4 % NRG SYPHILIS (RPR W/ REFLEX CONFIRMATION) - 07/31/18 10:02 RPR (DX) W/REFL TITER AND CONFIRMATORY TESTING NON-REACTIVE NON-REACTIVE CULTURE, THROAT - 07/31/18 10:27 CULTURE, THROAT SEE NOTE NRG CULTURE, GROUP B STREP (VAGINAL) - 09/25 12:55 STREPTOCOCCUS, GROUP B CULTURE SEE NOTE NRG Complete urinalysis with reflex to cultu re - 10/05/18 17:50 Urine color determination YELLOW NRG Urine clarity determination CLEAR NR G Urine pH measurement by test strip 8 5-9 Specific gravity of urine by test strip 1.010 1.016-1.022 Urine protein assay by test strip, semi-quantitative 1+ NEGATIVE Urine glucose detection by automated test strip NE GATIVE NEGATIVE Erythrocytes detection in urine sediment by light micr oscopy NEGATIVE NEGATIVE Urine ketones detection by automated test strip 1+ NEGATIVE Urine nitrite detection by test strip NEGATIVE NEGATIVE Urine total bilirubin detection by test strip NEGA TIVE NEGATIVE Urine urobilinogen measurement by automated test strip (mass/volume) 1 mg/dL NORMAL Urine leukocyte esterase detection by dipstick 2+ NEGATIVE Automated urine sediment erythrocyte cou nt by microscopy (number/high power field) NONE NRG Automated urine sediment leukocyte count by microscopy (number/high power field) [HPF] NRG Bacteria detection in urine sediment by light microsco py MODERATE NRG Squamous epithelial cells detection in u rine sediment by light microscopy 10-25 NRG Crystals detection in urine sediment by light microsco py NONE NRG Casts detection in urine sediment by light microscopy NONE NRG Mucus detection in urine sediment by light microscopy NEGATIVE NRG Complete urinalysis with reflex to culture YES NRG Bacterial urine culture - 10/05/18 17:50 Bacterial urine culture 3 OR MORE NRG COLONY COUNT >100,000/ML NRG FTX;REPORTABLE GRAM POSITIVE ISOLATES; SUGGESTING NRG FREE TEXT ENTRY 2 PROBABLE COLLECTION CONTAMINATIO N WITH NRG FREE TEXT ENTRY 3 SKIN PATRICIA. NO SUSCEPTIBILITY PE RFORMED. NRG Complete blood count (CBC) with automate d white blood cell (WBC) differential - 10/16/18 06:05 Blood leukocytes automated count (number/volume) 8.3 10*3/uL 4.3-11.0 Blood erythrocytes automated count (number/volume) 3.99 10*6/uL 4.35-5.85 Venous blood hemoglobin measurement (mass/volume) 11.9 g/dL 11.5-16.0 Blood hematocrit (volume fraction) 35 % 35-52 Automated erythrocyte mean corpuscular volume 89 [ foz_us] 80-99 Automated erythrocyte mean corpuscular h emoglobin (mass per erythrocyte) 30 pg 25-34 Automated erythrocyte mean corpuscular h emoglobin concentration measurement (mass/volume) 34 g/dL 32-36 Automated erythrocyte distribution width ratio 13. 1 % 10.0- 14.5 Automated blood platelet count (count/volume) 138 10*3/uL 130-400 Automated blood platelet mean volume measurement 12.4 [foz_us] 7.4-10.4 Automated blood neutrophils/100 leukocytes 70 % 42-75 Automated blood lymphocytes/100 leukocytes 21 % 12-44 Blood monocytes/100 leukocytes 8 % 0-12 Automated blood eosinophils/100 leukocytes 1 % 0-10 Automated blood basophils/100 leukocytes 0 % 0-10 Blood neutrophils automated count (number/volume) 5.8 10*3 1.8-7.8 Blood lymphocytes automated count (number/volume) 1.8 10*3 1.0-4.0 Blood monocytes automated count (number/volume) 0. 6 10*3 0.0-1.0 Automated eosinophil count 0.1 10*3/uL 0 .0-0.3 Automated blood basophil count (count/volume) 0.0 10*3/uL 0.0-0.1 Blood type T Indirect antibody screen [facility] - 10/16/18 06:05 WRISTBAND NUMBER [id number] NRG ABO+Rh group AP NRG Blood group antibody screen NEGATIVE NR G Complete blood count (CBC) with automate d white blood cell (WBC) differential - 10/17/18 05:35 Blood leukocytes automated count (number/volume) 8.6 10*3/uL 4.3-11.0 Blood erythrocytes automated count (number/volume) 3.65 10*6/uL 4.35-5.85 Venous blood hemoglobin measurement (mass/volume) 11.0 g/dL 11.5-16.0 Blood hematocrit (volume fraction) 33 % 35-52 Automated erythrocyte mean corpuscular volume 90 [ foz_us] 80-99 Automated erythrocyte mean corpuscular h emoglobin (mass per erythrocyte) 30 pg 25-34 Automated erythrocyte mean corpuscular h emoglobin concentration measurement (mass/volume) 33 g/dL 32-36 Automated erythrocyte distribution width ratio 13. 0 % 10.0- 14.5 Automated blood platelet count (count/volume) 112 10*3/uL 130-400 Automated blood platelet mean volume measurement 11.9 [foz_us] 7.4-10.4 Automated blood neutrophils/100 leukocytes 67 % 42-75 Automated blood lymphocytes/100 leukocytes 22 % 12-44 Blood monocytes/100 leukocytes 9 % 0-12 Automated blood eosinophils/100 leukocytes 1 % 0-10 Automated blood basophils/100 leukocytes 0 % 0-10 Blood neutrophils automated count (number/volume) 5.8 10*3 1.8-7.8 Blood lymphocytes automated count (number/volume) 1.9 10*3 1.0-4.0 Blood monocytes automated count (number/volume) 0. 8 10*3 0.0-1.0 Automated eosinophil count 0.1 10*3/uL 0 .0-0.3 Automated blood basophil count (count/volume) 0.0 10*3/uL 0.0-0.1 Complete urinalysis with reflex to cultu re - 11/06/18 12:48 Urine color determination YELLOW NRG Urine clarity determination SLIGHTLY CLOUDY NRG Urine pH measurement by test strip 6 5-9 Specific gravity of urine by test strip 1.020 1.016-1.022 Urine protein assay by test strip, semi-quantitative 2+ NEGATIVE Urine glucose detection by automated test strip NE GATIVE NEGATIVE Erythrocytes detection in urine sediment by light micr oscopy 5+ NEGATIVE Urine ketones detection by automated test strip 2+ NEGATIVE Urine nitrite detection by test strip NEGATIVE NEGATIVE Urine total bilirubin detection by test strip NEGA TIVE NEGATIVE Urine urobilinogen measurement by automated test strip (mass/volume) NORMAL NORMAL Urine leukocyte esterase detection by dipstick 3+ NEGATIVE Automated urine sediment erythrocyte cou nt by microscopy (number/high power field) > [HPF] NRG Automated urine sediment leukocyte count by microscopy (number/high power field) [HPF] NRG Bacteria detection in urine sediment by light microsco py FEW NRG Squamous epithelial cells detection in u rine sediment by light microscopy 10-25 NRG Crystals detection in urine sediment by light microsco py NONE NRG Casts detection in urine sediment by light microscopy NONE NRG Mucus detection in urine sediment by light microscopy SMALL NRG Complete urinalysis with reflex to culture YES NRG Bacterial urine culture - 11/06/18 12:48 Bacterial urine culture 3 OR MORE NRG COLONY COUNT >100,000/ML NRG FTX;REPORTABLE GRAM POSITIVES SUGGESTING PROBABLE NRG FREE TEXT ENTRY 2 COLLECTION CONTAMINATION WITH SK IN PATRICIA NRG FREE TEXT ENTRY 3 NO SUSCEPTIBILITY PERFORMED NR Complete blood count (CBC) with automate d white blood cell (WBC) differential - 11/06/18 13:55 Blood leukocytes automated count (number/volume) 6.0 10*3/uL 4.3-11.0 Blood erythrocytes automated count (number/volume) 4.47 10*6/uL 4.35-5.85 Venous blood hemoglobin measurement (mass/volume) 13.4 g/dL 11.5-16.0 Blood hematocrit (volume fraction) 40 % 35-52 Automated erythrocyte mean corpuscular volume 89 [ foz_us] 80-99 Automated erythrocyte mean corpuscular h emoglobin (mass per erythrocyte) 30 pg 25-34 Automated erythrocyte mean corpuscular h emoglobin concentration measurement (mass/volume) 34 g/dL 32-36 Automated erythrocyte distribution width ratio 12. 5 % 10.0- 14.5 Automated blood platelet count (count/volume) 205 10*3/uL 130-400 Automated blood platelet mean volume measurement 11.5 [foz_us] 7.4-10.4 Automated blood neutrophils/100 leukocytes 81 % 42-75 Automated blood lymphocytes/100 leukocytes 12 % 12-44 Blood monocytes/100 leukocytes 6 % 0-12 Automated blood eosinophils/100 leukocytes 1 % 0-10 Automated blood basophils/100 leukocytes 1 % 0-10 Blood neutrophils automated count (number/volume) 4.8 10*3 1.8-7.8 Blood lymphocytes automated count (number/volume) 0.7 10*3 1.0-4.0 Blood monocytes automated count (number/volume) 0. 4 10*3 0.0-1.0 Automated eosinophil count 0.0 10*3/uL 0 .0-0.3 Automated blood basophil count (count/volume) 0.0 10*3/uL 0.0-0.1 Comprehensive metabolic panel - 11/06/18 13:55 Serum or plasma sodium measurement (moles/volume) 143 mmol/L 135-145 Serum or plasma potassium measurement (moles/volume) 3.9 mmol/L 3.6-5.0 Serum or plasma chloride measurement (moles/volume) 108 mmol/L 98-107 Carbon dioxide 24 mmol/L 21-32 Serum or plasma anion gap determination (moles/volume) 11 mmol/L 5-14 Serum or plasma urea nitrogen measurement (mass/volume ) 7 mg/dL 7-18 Serum or plasma creatinine measurement (mass/volume) 0.89 mg/dL 0.60-1.30 Serum or plasma urea nitrogen/creatinine mass ratio 8 NRG Serum or plasma creatinine measurement w ith calculation of estimated glomerular filtration rate > NRG Serum or plasma glucose measurement (mass/volume) 82 mg/dL 70-105 Serum or plasma calcium measurement (mass/volume) 8.7 mg/dL 8.5-10.1 Serum or plasma total bilirubin measurement (mass/volu me) 0.6 mg/dL 0.1-1.0 Serum or plasma alkaline phosphatase jose miguel surement (enzymatic activity/volume) 119 U/L 40-136 Serum or plasma aspartate aminotransfera se measurement (enzymatic activity/volume) 31 U/L 5-34 Serum or plasma alanine aminotransferase measurement (enzymatic activity/volume) 35 U/L 0-55 Serum or plasma protein measurement (mass/volume) 7.2 g/dL 6.4-8.2 Serum or plasma albumin measurement (mass/volume) 4.0 g/dL 3.2-4.5 CALCIUM CORRECTED 8.7 mg/dL 8.5-10.1 Serum or plasma amylase measurement (enz ymatic activity/volume) - 11/06/18 13:55 Serum or plasma amylase measurement (enzymatic activit y/volume) 58 U/L 25-125 Lipase - 11/06/18 13:55 Lipase 23 U/L 8-78 Serum or plasma choriogonadotropin measu rement (units/volume) - 02/09/19 08:43 Serum or plasma choriogonadotropin measurement (units/ volume) < m[iU]/mL <5 Encounters ACCT No. Visit Date/Time Discharge Status Pt. Type Provider Facility Loc./Unit Complaint [id number] 12/21/2018 08:31:00 12/21/2018 23:59: 00 DIS Outpatient Carolyn Shannon [id number] 12/23/2018 09:30:00 12/23/2018 23:59: 59 CLS [facility] [id number] 09/25/2018 09:15:00 Document Registration [id number] 07/31/2018 09:40:00 Document Registration [id number] 07/31/2018 09:00:00 Document Registration [id number] 02/09/2019 08:37:00 23:59:59 CLS Outpatient SEALS DO, RHINA E [facility] [id number] 11/06/2018 12:30:00 14:41:00 DIS Emergency BERNOT, MARIANGEL [facility] ER SIDE PAIN;VOMITING [id number] 10/16/2018 05:34:00 14:55:00 DIS Inpatient SEALS DO, RHINA E [facility] LDRP INDUCTION [id number] 10/05/2018 17:18:00 19:51:00 DIS Outpatient SEALS DO, RHINA E [facility] WSo CONTRACTIONS [id number] 04/04/2018 12:11:00 23:59:59 CLS Outpatient SEALS DO, RHINA E [facility] [id number] 03/31/2018 04:45:00 17:15:00 DIS Inpatient CARDOZA DO, KAY V [facility] 4TH CHEST PAIN,PERICARDITIS VS PE [id number] 02/23/2018 08:51:00 23:59:59 CLS Outpatient SEALS DO, RHINA E [facility] AMENORRHEA [id number] 08/04/2017 12:12:00 23:59:59 CLS Outpatient ANAYA, JEAN PORTUGUESE TUTOR [facility] HCQ QUALITATIVE [id number] 08/18/2016 08:56:00 017 23:59:59 CLS Outpatient SEALS DO, RHINA E [facility] HIGH RISK PRENANCY [id number] 10/19/2013 11:27:00 10/19/2013 23:59: 59 CLS Outpatient NORI PHAN MD [id number] 10/02/2013 10:46:00 10/02/2013 23:59: 59 CLS Outpatient NORI PHAN MD [id number] 09/20/2013 08:58:00 09/20/2013 23:59: 59 CLS Outpatient NORI PHAN MD [id number] 07/02/2013 15:29:00 07/02/2013 23:59: 59 CLS Outpatient RENAE MOHR APRN [id number] 04/03/2013 09:49:00 04/03/2013 23:59: 59 CLS Outpatient RENAE MOHR APRN [id number] 12/13/2012 10:35:00 12/13/2012 23:59: 59 CLS Outpatient EASTON BREAUX DO [id number] 04/06/2012 14:24:00 04/06/2012 23:59: 59 CLS Outpatient EASTON BREAUX DO [id number] 08/15/2012 11:13:00 Document Registration [id number] 07/10/2012 09:59:00 Document Registration
[2019-06-29] MEDS ORDERED: fentaNYL INJECTION 100 MCG/2 ML AMP ONE ×2 (10:29→12:58)
[2019-06-29] MEDS ORDERED: MIDAZOLAM 2 MG/2 ML (VERSED) VIAL ONE (10:29)
[2019-06-29] MEDS ORDERED: SEVOFLURANE (ULTANE) 15 ML INHAL SOLN ONE ×2 (10:29→12:19)
[2019-06-29] MEDS ORDERED: proPOfol 200 MG/20 ML (DIPRIVAN) VIAL IV ONE (10:29)
[2019-06-29] MEDS ORDERED: ROCURONIUM 10 MG/ML 5 ML SYRINGE IV ONE (10:29)
[2019-06-29] MEDS ORDERED: LIDOCAINE PF 2% 5 ML (XYLOCAINE) VIAL ONE (10:32)
--- NOTE | 2019-06-29 10:46 | Conscious Sedation/ASA ---
Conscious Sedation Pre-Proced Time 10:30 ASA Score 2 For ASA 3 and 4: Consider anesthesia and medical clearance. Also, for patients with a history of failed moderate sedation consider anesthesia. Airway Lungs Heart ASA score ASA 1: a normal healthy patient ASA 2: a patient with a mild systemic disease (mid diabetes, controlled hypertension, obesity ASA 3: a patient with a severe systemic disease that limits activity (angina, COPD, prior Myocardial infarction) ASA 4: a patient with an incapacitating disease that is a constant threat to life (CHF, renal failure) ASA 5: a moribund patient not expected to survive 24 hrs. (ruptured aneurysm) ASA 6: a declared brain- patient whose organs are being harvested. For emergent operations, add the letter E after the classification Mallampati Classification Grade 2 Sedation Plan Analgesia, Amnesia, Plan communicated to team members, Discussed options with patient/fam, Discussed risks with patient/fam The patient is an appropriate candidate to undergo the planned procedure, sedation, and anesthesia. The patient immediately re-assessed prior to indication. POPEYE ABEBE MD June 29, 2019 10:46
--- NOTE | 2019-06-29 10:47 | Progress Note-Pre Operative ---
Pre-Operative Progress Note H&P Reviewed The H&P was reviewed, patient examined and no changes noted. Date Seen by Provider: June 29, 2019 Time Seen by Provider: 10: Date H&P Reviewed: June 29, 2019 Time H&P Reviewed: 10:30 Pre-Operative Diagnosis: symptomatic cholelithiasis POPEYE ABEBE MD June 29, 2019 10:47
[2019-06-29] MEDS ORDERED: LACTATED RINGERS 1,000 ML IV PRN (10:52)
[2019-06-29] MEDS: ONDANSETRON 4 MG/2 ML (SDV) Z0FRAN IVP PRN ×2 (10:58→14:01)
[2019-06-29] MEDS ORDERED: BUP/EPI 0.5% 1:200,000 (SENSORCAINE) 30 ML VIAL ONE (10:59)
[2019-06-29] MEDS ORDERED: ceFAZolin 2 GM IV Premixed 50 ML IV ONE (11:00)
[2019-06-29] MEDS ORDERED: morphine INJ 10 MG/ML 1ML (SYR OR VIAL) IVP PRN ×2 (11:00)
[2019-06-29] MEDS ORDERED: oxyCODONE/APAP 5/325MG (PERCOCET 5) TABLET PO PRN (11:00)
[2019-06-29] MEDS ORDERED: ACETAMINOPHEN 325 MG TABLET PO PRN (11:00)
[2019-06-29] MEDS ORDERED: OXYC1TAB16 PO (11:50)
--- NOTE | 2019-06-29 11:51 | Discharge Inst-Surgical ---
D/C Lap Instructions-CRISTYO Reconcile Patient Problems Problems Reviewed?: Yes New, Converted, or Re-Newed RX: Other Follow Up Appt in 2 weeks Activity as tolerated No driving for 24 hours No driving while on pain medications Incentive Spirometry use every 2 hours while awake Regular Diet Symptoms to Report: Fever over 101 degree F, Nausea/Vomiting Infection Signs and Symptoms to report: Increased redness, Foul odor of wound, Increased drainage Bathing instructions: May shower Operative Area Clean/Dry; Keep incision clean/dry If any problems/questions: Contact your physician or go to Emergency Room CYNTHIA LAI APRN June 29, 2019 11:51
[2019-06-29] MEDS ORDERED: ONDANSETRON 4 MG/2 ML (SDV) Z0FRAN ONE (12:20)
--- NOTE | 2019-06-29 12:35 | Progress Note-Post Operative ---
Post-Operative Progess Note Surgeon (s)/Telephone Plant Power Operator (s) Surgeon POPEYE ABEBE MD Telephone Plant Power Operator: adelso mathews SNORKELLING INSTRUCTOR Pre-Operative Diagnosis symptomatic biliary dyskinesia Post-Operative Diagnosis same Procedure & Operative Findings Date of Procedure 06/29/19 Procedure Performed/Findings laparoscopic cholecystectomy Anesthesia Type get Estimated Blood Loss Estimated blood loss (mL): minimal Specimens/Packing Specimens Removed gallbladder POPEYE ABEBE MD June 29, 2019 12:35
[2019-06-29] MEDS ORDERED: PROMETHAZINE INJ 25 MG/ML (PHENERGAN) AMP IVP ONE (13:00)
[2019-06-29] MEDS ORDERED: ONDANSETRON 4 MG/2 ML (SDV) Z0FRAN IVP PRN (13:00)
[2019-06-29] MEDS ORDERED: fentaNYL INJECTION 100 MCG/2 ML AMP IVP ONE (13:00)
[2019-06-29] MEDS ORDERED: MEPERIDINE (DEMEROL) INJ 50 MG/ML IVP ONE (13:00)
--- NOTE | 2019-06-29 14:08 | NUR ---
this rn phoned dr. rudd due to new prescription for Percocet and already in home medication list. dr. rudd states patient has Percocet already at home and to d/c new script.
--- NOTE | 2019-06-29 19:04 | OPERATIVE REPORT ---
DATE OF SERVICE: 06/29/2019 ATTENDING PRIMARY CARE PHYSICIAN: Xochitl Shannon APRN PREOPERATIVE DIAGNOSIS: Symptomatic biliary dyskinesia. POSTOPERATIVE DIAGNOSIS: Symptomatic biliary dyskinesia. PROCEDURE: Laparoscopic cholecystectomy. SURGEON: Popeye Abebe MD. MASTIC WORKER: Vito Chaves APRN. ANESTHESIA: General endotracheal. ESTIMATED BLOOD LOSS: Minimal. FINDINGS: Distended gallbladder, no gallbladder wall inflammation. No gallstones. DISPOSITION: The patient tolerated the procedure well. 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 She presented to the Emergency Department at [facility] where an ultrasound was performed as well as laboratory work and a CT scan, which did not show any abnormalities. She stated that the discomfort continued as well as nausea and was unable to take adequate amounts of liquids. A HIDA scan was then performed, which showed a lower end ejection fraction of 37%. However, during the administration of a Kinevac analogue, she did have a severe reproduction of pain in the right upper abdominal quadrant with radiation towards the back. DESCRIPTION OF PROCEDURE: The patient was brought to the operating room, laid supine on the table. After adequate IV pain and sedative medications and general endotracheal intubation, the abdomen was prepped and draped in standard surgical fashion. A 0.5% Marcaine with epinephrine was then used to anesthetize the overlying skin left upper abdominal quadrant and a transverse skin incision made using a 15 blade. An 0 silk suture was applied to the medial aspect incision for retraction and a Veress needle inserted with low opening pressure of 0 mmHg. The abdomen was then insufflated to 15 mmHg pressure. The Veress needle removed and a 5 mm XL trocar placed followed by a 5 mm 45-degree angle laparoscope visualizing the peritoneal cavity. A 4-quadrant abdominal exploration was performed. There was distention of the gallbladder. There was no gallbladder wall thickening, no inflammatory changes. What was visualized the liver, omentum, small bowel and stomach appeared normal. Under direct visualization, we then proceeded to place a supraumbilical 10 mm port after the skin and peritoneal lining were anesthetized using 0.5% Marcaine with epinephrine and a transverse skin incision made using a 15 blade. In a similar manner, a right upper abdominal quadrant 5 mm port was placed. The patient was then placed in reverse Trendelenburg position as well as plane right side up, left side down. The fundus of the gallbladder was then retracted anteriorly and superiorly. The hepatoduodenal ligament was then opened using blunt dissection as well as electrocautery and hook instrument. The entire critical view of safety was identified including the triangle of Calot as well as the cystic duct and artery as the only two structures going into the gallbladder as well as the cystic plate behind the proximal gallbladder. A timeout was then taken and the cystic duct and artery were then clipped proximally, distally and cut with EndoShears. The gallbladder was then dissected off the liver bed using cautery on hook instrument with visualization of good hemostasis as well as no leaking ducts of Luschka. The gallbladder was removed through the 10 mm port site using an EndoCatch bag. The 10 mm port site fascia and peritoneum were then closed under direct visualization using a Paul-Chidi device and 0 Vicryl suture. The abdomen was then desufflated and remaining ports removed. All skin incisions were closed using 4-0 Monocryl running subcuticular sutures. Wounds were then cleaned and covered with Dermabond. The patient tolerated the procedure well. We will start IV normal pain medication as well as a clear liquid diet. Once she is tolerating clears, has good pain control with oral pain medications, ambulating well, we will discharge her home. She will be instructed to do no heavy lifting or exertion for the next two weeks and slowly incorporate lifting or exertion until she reaches 6 weeks point. At that time, she will not have any restrictions. Job ID: [id number] DocumentID: [id number] Dictated Date: 06/29/2019 12:41:42 Political Science Faculty Member Date: 06/29/2019 19:03:37 Dictated By: POPEYE ABEBE MD
== END 2019-06-29 13:08 | disposition home or self-care (01) ==
LOC: SDC 09:52
PROVIDERS: ATTEND Surgery
DX: K81.1 Chronic cholecystitis (principal); K82.8 Other specified diseases of gallbladder; Z79.891 Long term (current) use of opiate analgesic; Z90.89 Acquired absence of other organs; Z88.5 Allergy status to narcotic agent; Z91.040 Latex allergy status; Z79.899 Other long term (current) drug therapy
CPT/HCPCS: 84703; 87081; 94664

== ENCOUNTER → 2019-08-16 | Outpatient (CLI) | payer OTHER ==
[~2019-08-16] MED LIST changes: +OXYC1TAB16 PO
[2019-08-16 07:01] LABS: HEMOGLOBIN 13.8 G/DL (11.5-16.0); MEAN PLATELET VOLUME 10.8 FL (7.4-10.4); RED CELL DISTRIBUTION WIDTH 12.9 % (10.0-14.5); WHITE BLOOD COUNT 4.6 10^3/uL (4.3-11.0)
[2019-08-16 07:19] LABS: CARBON DIOXIDE 25 MMOL/L (21-32); CHLORIDE 106 MMOL/L (98-107); SODIUM 140 MMOL/L (135-145)
[2019-08-16 07:20] LABS: ALANINE AMINOTRANSFERASE 13 U/L (0-55); ALBUMIN 4.1 GM/DL (3.2-4.5); ALKALINE PHOSPHATASE 147 U/L (40-136); BILIRUBIN,TOTAL 0.5 MG/DL (0.1-1.0); BUN/CREATININE RATIO 18; CALCIUM 9.2 MG/DL (8.5-10.1); CHOLESTEROL 158 MG/DL (< 200); CREATININE SERUM 0.76 MG/DL (0.60-1.30); GFR ESTIMATED > 60; GLUCOSE 90 MG/DL (70-105); HDL CHOLESTEROL 51 MG/DL (40-60); TOTAL PROTEIN 7.4 GM/DL (6.4-8.2); TRIGLYCERIDES 61 MG/DL (<150); VLDL CHOLESTEROL 12 MG/DL (5-40)
== END ==
LOC: LAB 06:46
PROVIDERS: ATTEND Obstetrics & Gynecology
DX: Z01.89 Encounter for other specified special examinations (principal); E28.2 Polycystic ovarian syndrome
CPT/HCPCS: 36415; 80053; 80061; 82670; 82672; 83525; 84146; 84403; 84443; 84702; 85027